=== PATIENT | female | born 1990 | race Caucasian/White ===

== ENCOUNTER 2020-09-02 10:29 | Emergency (ER) | payer SELFPAY ==
--- OUTSIDE RECORDS SUMMARY | 2020-09-02 10:32 | XMS REPORT | Continuity of Care Document ---
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 Health with with agoraphobi agoraphobi a a Severe Severe Disease Active [facility] episode of episode of 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, disorder, 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 Anxiety Anxiety Disease Active [facility] Allergies, Adverse Reactions, Alerts Allergy Allergy Status Severity Reaction(s) Onset Inactive Treating Comm ents Source Name Type Date Date Clinician Amoxicil Propensi Active Rash 2015-06 [facility] jeimy ty to 07-30 Health adverse 00:00: reaction 00 s to drug Social History Social Habit Start Date Stop Date Quantity Comments Source History of tobacco Cigarette Smoker [facility] use Sex Assigned At [facility] alth Cigarettes smoked 2016-05-29 2016-05-29 [facility] current (pack per 00:00:00 00:00:00 day) - Reported Alcohol intake 2016-05-29 2016-05-29 Current [facility] lt 00:00:00 00:00:00 non-drinker of alcohol (finding) Smoking Status Start Date Stop Date Source Current every day smoker 2016-05-29 00:00:00 [facility] Medications This patient has no known medications. Procedures This patient has no known procedures. Plan of Care Planned Activity Planned Date Details Comments Source Future Scheduled Test 2020-03-21 00:00:00 IMM Influenza [facility] Seasonal Mar to August (>/= 19 yrs) [code = IMM Influenza Seasonal Mar to August (>/= 19 yrs)] Future Scheduled Test 2011-12-18 00:00:00 Screening for [facility] malignant neoplasm of cervix (procedure) [code = 758146386] Results Test Description Test Time Test Comments Results Result Comments Source POC Glucose, Blood 2016-10-20 12:08:00 Test Item Value Reference Range Interpretation Comme nts POC Glucose (test code = POCGLUC) >600 mg/dL 70-115 HH Notify RN or HIV [id number] 14:54:00 Test Item Value Reference Range Interpretation Comments HIV 1/2 Antibody Non-Reactive Non-Reactive N HIV1/2 Anti body screen (test code = result indicate s the HIV1/2AB) absence of HIV1 and USX9sabnldyow.H owever, A Non-Reactive screen result does not rule out exposure orinfection. I f an acute infection is suspected, HIV RNA Quantitative is recommended. P24 Antigen (test Non-Reactive Non-Reactive N P24 Ag scr een result code = P24) indicates the a bsence of P24 antigen, which is anindicator of HIV-1 acute infection.Howev er, A Non-Reactive sc reen does not rule o ut exposure or infection.If ac jasiel HIV-1 is suspec edith, HIV RNA Quantit ative is recommended. RPR, [id number] 11:34:00 Test Item Value Reference Range Interpretation Comments RPR (test code = RPR) Non-Reactive Non-Reactive N Thyroid Stimulating Hormone (TSH)2016-10-16 08:47:00 Test Item Value Reference Range Interpretation Comments TSH (test code = TSH) 0.85 mIU/mL 0.270-4.200 N BHCG, Serum, [id number] 08:32:00 Test Item Value Reference Range Interpretation Comments Preg Qual [Se] (test code = BSHCG) Negative Negative N CBC with [id number] 08:18:00 Test Item Value Reference Range Interpretation Comments WBC (test code = WBC) 12.1 K/cumm 4.4-10.5 H RBC (test code = RBC) 5.27 M/cumm 3.75-5.20 H Hemoglobin (test code = HGB) 15.1 gm/dL 12.2-14.8 H Hematocrit (test code = HCT) 45.8 % 36.5-44.4 H MCV (test code = MCV) 86.9 fL 80-100 N MCH (test code = MCH) 28.6 pg 27.0-32.5 N MCHC (test code = MCHC) 32.9 g/dL 32.0-37.5 N RDW (test code = RDW) 14.5 % 11.5-14.5 N Platelet Count (test code = 275 K/cumm 140-440 N PLTCT) MPV (test code = MPV) 9.4 fL Diff Method (test code = DIFFM) Auto Neutrophil (test code = NEUT) 69.9 % 36-70 N Lymphocyte (test code = LYMPH) 24.7 % 12-44 N Monocyte (test code = MONO) 4.7 % 0-11 N Eosinophil (test code = EOS) 0.4 % 0-7 N Basophil (test code = BASO) 0.3 % 0-2 N Neutro Abs (test code = ANEUT) 8.5 K/cumm 1.6-7.4 H Lymph Abs (test code = ALYMPH) 3.0 K/cumm 0.5-4.6 N [place] Abs (test code = AMONO) 0.6 K/cumm 0.0-1.2 N Eos Abs (test code = AEOS) 0.04 K/cumm 0.00-0.74 N Baso Abs (test code = ABASO) 0.0 K/cumm 0.00-0.21 N
[2020-09-02 11:35] LABS: Absolute Lymphocytes (CBC) 3.2 K/uL (0.7-4.9); Basophils % 0.6 % (0-1.3); Hematocrit 40.6 % (36.0-45.0); Lymphocytes % 27.6 % (15.3-44.8); MPV 8.9 fL (7.6-11.3); RBC Red Blood Cell Count 5.02 M/uL (3.86-4.86)
[2020-09-02 11:47] LABS: Protime INR 1.07
[2020-09-02] MEDS ORDERED: LORazepam 2 MG/ML VIAL ONE ×3 (11:54→20:45)
[2020-09-02 12:06] LABS: ALT/SGPT 21 U/L (12-78); AST/SGOT 15 U/L (15-37); Albumin 3.9 g/dL (3.4-5.0); Alkaline Phosphatase 73 U/L (45-117); BUN Blood Urea Nitrogen 6 mg/dL (7-18); Bicarbonate 24 mmol/L (21-32); Bilirubin Direct 0.1 mg/dL (0-0.2); Bilirubin Total 0.4 mg/dL (0.2-1.0); Glucose Level 94 mg/dL (74-106); Potassium 3.8 mmol/L (3.5-5.1); Protein, Total 9.2 g/dL (6.4-8.2); Sodium Level 138 mmol/L (136-145)
[2020-09-02 12:20] LABS: Barbiturates NEGATIVE (NEGATIVE); Benzodiazepines NEGATIVE (NEGATIVE); Cocaine NEGATIVE (NEGATIVE); METHAMPHETAM POSITIVE (NEGATIVE); Methadone NEGATIVE (NEGATIVE); Opiates NEGATIVE (NEGATIVE); Phencyclidine NEGATIVE (NEGATIVE); THC Cannibis POSITIVE (NEGATIVE)
[2020-09-02 12:24] LABS: Urine Blood TRACE (NEG); Urine Glucose NEGATIVE (NEG); Urine Protein NEGATIVE (NEG); Urine Specific Gravity 1.015 (1.005-1.030)
--- NOTE | 2020-09-02 14:12 | ER ---
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 RN RN jd3 Hero Dugan RN RN rr5 Samantha Cintron RN RN ca1 Trim, Tyler tt3 Corrections: (The following items were deleted from the chart) 09/03 12:34 12:33 BP 122 / 81; Pulse 115bpm; Resp 17bpm; Spontaneous; Pulse Ox 100% RA; jd3 jd3 09/04 11:39 11:20 Reassessment: report given to [facility], pending transportation and paperwork tw2 process tw2
--- NOTE | 2020-09-02 14:12 | EDPHYS ---
Physician Documentation [facility] Name: Patrizia Young Age: 29 yrs Sex: Female : 1990 Arrival Date: 09/02/2020 Time: 10:31 Bed 20 Private MD: ROBERT Physician Rajendra Stack HPI: 09/02 11:27 This 29 yrs old Female presents to ER via Ambulatory with complaints of Psych jmm Problem, hallucination. 11:27 The patient presents to the emergency department with anxiety, psychosis, has jmm experienced auditory hallucinations, voices are telling patient to commit sucide, a history of substance abuse, Type: heroin. Onset: The symptoms/episode began/occurred today. Associated signs and symptoms: Pertinent positives; anxiety, hallucinations, substance abuse, suicide ideation. 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 - Social history:: Smoking status: Patient reports the use of cigarette tobacco products, smokes one-half pack cigarettes per day, Patient uses alcohol, street drugs, cocaine, marijuana, Methamphetamine (Meth). ROS: 11:27 Constitutional: Negative for fever, chills, and weight loss, Cardiovascular: Negative jmm for chest pain, palpitations, and edema, Respiratory: Negative for shortness of breath, cough, wheezing, and pleuritic chest pain. 11:27 Psych: Positive for suicidal ideation. 11:27 All other systems are negative. Exam: 11:27 Head/Face: atraumatic. Eyes: EOMI, no conjunctival erythema appreciated ENT: Moist jmm Mucus Membranes Neck: Trachea midline, Supple Chest/axilla: Normal chest wall appearance and motion. Cardiovascular: Regular rate and rhythm. No edema appreciated Respiratory: Normal respirations, no respiratory distress appreciated Abdomen/GI: Non distended, soft Back: Normal ROM Skin: General appearance color normal MS/ Extremity: Moves all extremities, no obvious deformities appreciated, no edema noted to the lower extremities Neuro: Awake and alert, normal gait 11:27 Constitutional: The patient appears alert, awake, anxious. 11:27 Psych: Behavior/mood is anxious, suicidal. Vital Signs: 10:46 BP 136 / 95; Pulse 122; Resp 18 S; Temp 99(TE); Pulse Ox 100% on R/A; Weight 68.04 kg ca1 (R); Height 5 ft. 4 in. (162.56 cm); Pain 0/10; 23:50 BP 116 / 76; Pulse 98; Resp 18; Temp 98.6; Pulse Ox 99% on R/A; em 09/03 12:00 BP 122 / 81; Pulse 115; Resp 17 S; Pulse Ox 100% on R/A; jd3 09/02 10:46 Body Mass Index 25.75 (68.04 kg, 162.56 cm) ca1 MDM: 09/02 10:57 Patient medically screened. alicia 14:10 Data reviewed: vital signs, nurses notes. Counseling: I had a detailed discussion with lazaro the patient and/or guardian regarding: the historical points, exam findings, and any diagnostic results supporting the discharge/admit diagnosis, lab results, the need to transfer to another facility. 20:37 ED course: I discussed the patient with Rajendra Padilla and [facility]. Recommend inpatient. lazaro . 20:40 Transition of care: After a detail discussion of the patient's case, care is [facility] transferred to Rajendra MARR. 09/03 17:31 ED course: The patient continues to rest comfortably in the ED. She had become agitated kdr but responded well to 1 mg Ativan PO. 19:33 Differential diagnosis: drug withdrawal. acute psychotic break, depression, psychosis alicia secondary to non-compliance. 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 Test interpretation: by ED physician or midlevel provider: ECG. 19:33 ED course: not suicidal., not homicidal, alert and oriented x4, wants to go home and alicia follow up as an out patient. 09/02 11:09 Order name: Acetaminophen [facility] 09/02 11:09 Order name: Basic Metabolic Panel [facility] 09/02 11:09 Order name: CBC with Diff [facility] 09/02 11:09 Order name: ETOH Level [facility] 09/02 11:09 Order name: Hepatic Function [facility] 09/02 11:09 Order name: PT-INR; Complete Time: 13:35 [facility] 09/02 11:09 Order name: Ptt, Activated; Complete Time: 13:35 [facility] 09/02 11:09 Order name: Salicylate; Complete Time: 19:27 [facility] 09/02 11:09 Order name: Urine Drug Screen; Complete Time: 13:35 [facility] 09/02 11:09 Order name: Basic Metabolic Panel; Complete Time: 13:35 [facility] 09/02 11:09 Order name: CBC with Automated Diff; Complete Time: 13:35 [facility] 09/02 11:09 Order name: Alcohol Serum/Plasma; Complete Time: 13:35 [facility] 09/02 11:10 Order name: Liver (Hepatic) Function; Complete Time: 13:35 [facility] 09/02 11:55 Order name: Acetaminophen Level; Complete Time: 14:49 [facility] 09/02 12:15 Order name: Urine Dipstick--Ancillary (enter results); Complete Time: 13:35 09/02 12:15 Order name: Urine --Ancillary (enter results); Complete Time: 13:35 09/02 13:18 Order name: COVID-19 : Document "Date of Symptom Onset" if Symptomatic. 09/02 18:13 Order name: SARS-COV-2 RT PCR; Complete Time: 18:37 [facility] 09/02 11:09 Order name: EKG; Complete Time: 11:10 [facility] 09/02 11:09 Order name: EKG - Nurse/Tech; Complete Time: 11:47 [facility] 09/02 11:09 Order name: IV Saline Lock; Complete Time: 11:47 [facility] 09/02 11:09 Order name: Labs collected and sent; Complete Time: 11:48 [facility] 09/02 11:09 Order name: Urine Dipstick-Ancillary (obtain specimen); Complete Time: 11:48 [facility] 09/02 19:22 Order name: Diet Finger Food; Complete Time: 19:22 jd3 09/03 07:18 Order name: Diet Finger Food; Complete Time: 07:19 09/03 17:43 Order name: Diet Finger Food; Complete Time: 17:43 jd3 Administered Medications: 09/02 11:47 Drug: Ativan 1 mg Route: IVP; Site: left antecubital; jd3 12:45 Follow up: Response: No adverse reaction jd3 14:36 Drug: Zofran (Ondansetron) 4 mg Route: IVP; Site: right antecubital; jd3 15:30 Follow up: Response: No adverse reaction jd3 18:45 Drug: Ativan 1 mg Route: IVP; Site: left antecubital; jd3 19:15 Follow up: Response: No adverse reaction; Marked relief of symptoms; Anxiety decreased em 20:31 Drug: Ativan 1 mg Route: IVP; Site: left antecubital; em 21:00 Follow up: Response: No adverse reaction; Marked relief of symptoms; Anxiety decreased em 03/16 02:12 Drug: Geodon 20 mg Route: IM; Site: right deltoid; em 02:30 Follow up: Response: No adverse reaction; Marked relief of symptoms em 16:30 Drug: Ativan 1 mg Route: PO; jd3 17:30 Follow up: Response: No adverse reaction jd3 20:00 Drug: RisperDAL 1 mg Route: PO; rr5 21:00 Follow up: Response: No adverse reaction rr5 20:00 Drug: Zoloft 50 mg Route: PO; rr5 21:00 Follow up: Response: No adverse reaction rr5 20:00 Drug: Ativan 1 mg Route: PO; rr5 21:00 Follow up: Response: No adverse reaction rr5 22:35 Drug: Geodon 20 mg Route: IM; Site: right deltoid; rr5 23:30 Follow up: Response: No adverse reaction rr5 22:37 Drug: Ativan 2 mg Route: IM; Site: left deltoid; rr5 23:35 Follow up: Response: No adverse reaction rr5 Disposition: 19:33 Co-signature as Attending Physician, Rajendra Stack MD I agree with the assessment and alicia plan of care. Disposition: 09/03/20 22:04 Transfer ordered to Psych Facility. Diagnosis are Bipolar disorder, Abuse of other non-psychoactive substances, Adverse effect of amphetamines. - Reason for transfer: Higher level of care. - Accepting physician is TO [facility]. - Condition is Stable. - Problem is new. - Symptoms have improved. Signatures: Dispatcher [employer] Rajendra Bautista MD MD cha Rittger, Kevin, MD MD kdr Mickail, Joel, PA PA jmm Kade Sierra, RN RN em Kelsey Tran RN RN tw2 Salvador Jim, RN RN jd3 Hero Dugan, RN RN rr5 Samantha Cintron RN RN ca1 Corrections: (The following items were deleted from the chart) 09/02 11:53 11:09 Acetaminophen Level ordered. [facility] 17:14 13:19 CORONAVIRUS ordered. [facility] 09/03 19:23 09/02 14:11 09/02/2020 14:11 Transfer ordered to Psych Facility. Diagnosis is alicia Hallucinations, unspecified; Suicidal ideations. Reason for transfer: Higher level of care. Accepting physician is Psychiatry. Condition is Stable. Problem is an acute exacerbation. Symptoms are unchanged. [facility] 09/03 22:02 19:28 09/03/2020 19:28 Discharged to Home. Impression: Bipolar disorder; Abuse of alicia non-psychoactive substances; Adverse effect of amphetamines. Condition is Stable. Forms are Medication Reconciliation Form, Thank You Letter, Antibiotic Education, Prescription Opioid Use. Follow up: Private Physician; When: 2 - 3 days; Reason: Recheck today's complaints, Continuance of care, Re-evaluation by your physician. Follow up: Dougie Wyatt; When: 2 - 3 days; Reason: Recheck today's complaints, Re-evaluation by your physician. Problem is new. Symptoms have improved. [facility] 09/04 14:36 09/03 22:04 09/03/2020 22:04 Transfer ordered to Psych Facility. Diagnosis is Bipolar tw2 disorder; Abuse of other non-psychoactive substances; Adverse effect of amphetamines. Reason for transfer: Higher level of care. Accepting physician is TO [facility]. Condition is Stable. Problem is new. Symptoms have improved. alicia
[2020-09-02] MEDS ORDERED: ONDANSETRON 4 MG/2 ML VIAL ONE (14:37)
[2020-09-03] MEDS ORDERED: WATER FOR INJ,STERILE 10 ML ONE ×2 (02:22→22:48)
[2020-09-03] MEDS ORDERED: ZIPRASIDONE MESYLA 20 MG/VIAL IM ONE ×2 (02:22→22:47)
[2020-09-03] MEDS ORDERED: LORAZEPAM 1 MG TABLET ONE ×2 (16:43→19:46)
[2020-09-03] MEDS ORDERED: SERTRALINE HCL 50 MG TAB ONE (20:06)
[2020-09-03] MEDS ORDERED: RISPERIDONE 1 MG TABLET ONE (20:06)
[2020-09-03] MEDS ORDERED: LORazepam 2 MG/ML VIAL ONE (22:47)
--- NOTE | 2020-09-04 04:38 | EKG ---
Test Date: 2020-09-02 Test Time: 10:42:36 Cardio Tech: LUISITO MEASUREMENT RESULTS: Intervals: Rate: 95 SC: 130 QRSD: 76 QT: 378 QTc: 475 Gibson: P: 22 SC: 130 QRS: 45 T: 36 INTERPRETIVE STATEMENTS: Normal sinus rhythm Nonspecific ST abnormality Abnormal ECG Compared to ECG 10/14/2016 16:24:32 ST (T wave) deviation now present Electronically Signed On 09-04-20 04:32:58 CDT by Teddy Huber
[2020-09-04 14:46] VITALS: TEMP 98.6
[2020-09-04 14:47] VITALS: BP 122/81; O2SAT 100
== END 2020-09-04 14:36 ==
LOC: ER 10:29
DX: F31.9 Bipolar disorder, unspecified (principal); F55.8 Abuse of other non-psychoactive substances; F15.90 Other stimulant use, unspecified, uncomplicated; F17.210 Nicotine dependence, cigarettes, uncomplicated; F40.01 Agoraphobia with panic disorder; R44.0 Auditory hallucinations; Z20.822 Contact with and (suspected) exposure to COVID-19; Z88.1 Allergy status to other antibiotic agents
CPT/HCPCS: 36415; 80048; 80076; 80307; 80320; 80329; 81003; 81025; 85025; 85610; 85730; 93005; 96372; 99285; J2405; U0003

== ENCOUNTER 2020-10-28 09:42 | Emergency (ER) | payer SELFPAY ==
--- OUTSIDE RECORDS SUMMARY | 2020-10-28 09:44 | XMS REPORT | Continuity of Care Document ---
:1990 Author Organization [facility] t Address [address] [place] [address] Care Team Providers Name Role Phone UNKNOWN Primary Care Physician Unavailable Susie DACOSTA Attending Clinician Unavailable Susie DACOSTA Admitting Clinician Unavailable Problems Condition Condition Condition Status Onset Resolution Last Treating Co mments Source Name Details Category Date Date Treatment Clinician Date Benzodiaze Benzodiaze Disease Active [facility] 02[facility]24 [facility] dependence dependence 00:00: st 00 Sedative, Sedative, Disease Active [facility] st[facility] hypnotic hypnotic 02-20 Method i or or 00:00: st 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 Suicidal Suicidal Disease Active [facility] s ideations ideations Heal Panic Panic Disease Active [facility] disorder disorder Health with with agoraphobi agoraphobi a a Severe Severe Disease Active [facility] episode of episode of 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, disorder, 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 Anxiety Anxiety Disease Active [facility] Allergies, Adverse Reactions, Alerts Allergy Allergy Status Severity Reaction(s) Onset Inactive Treating Comm ents Source Name Type Date Date Clinician Amoxicil Propensi Active Rash 2015-06 [facility] jeimy ty to 07-30 Health adverse 00:00: reaction 00 s to drug Amoxicil Propensi Active Rash [facility] jeimy-Pot ty to 02-20 [facility] Clavulan adverse 00:00: st ate reaction 00 s to drug Social History Social Habit Start Date Stop Date Quantity Comments Source History of tobacco Cigarette Smoker [facility] use Sex Assigned At [facility] He alth Cigarettes smoked 2016-05-29 2016-05-29 [facility] current (pack per 00:00:00 00:00:00 day) - Reported Alcohol intake 2016-05-29 2016-05-29 Current [facility] 00:00:00 00:00:00 non-drinker of alcohol (finding) Smoking Status Start Date Stop Date Source Current every day smoker 2016-05-29 00:00:00 [facility] Medications This patient has no known medications. Procedures This patient has no known procedures. Plan of Care Planned Activity Planned Date Details Comments Source Future Scheduled Test 2021-03-21 00:00:00 IMM Influenza [facility] Seasonal Mar to August (>/= 19 yrs) [code = IMM Influenza Seasonal Mar to August (>/= 19 yrs)] Future Scheduled Test 2020 00:00:00 Screening for [facility] malignant neoplasm of cervix (procedure) [code = 545922314] Future Scheduled Test 2011-12-18 00:00:00 Screening for [facility] malignant neoplasm of cervix (procedure) [code = 177367587] Future Scheduled Test 2006 00:00:00 COVID-19 Vaccine (1) [facility] [code = COVID-19 Vaccine (1)] Results Test Description Test Time Test Comments Results Result Comments Source POC Glucose, Blood 2016-10-20 12:08:00 Test Item Value Reference Range Interpretation Comme nts POC Glucose (test code = POCGLUC) >600 mg/dL 70-115 Notify RN or HIV [id number] 14:54:00 Test Item Value Reference Range Interpretation Comments HIV 1/2 Antibody Non-Reactive Non-Reactive N HIV1/2 Anti body screen (test code = result indicate s the HIV1/2AB) absence of HIV1 and VLQ5xixstmkjp.H owever, A Non-Reactive screen result does not [...] rule o ut exposure or infection.If ac minto HIV-1 is suspec edith, HIV RNA Quantit ative is recommended. RPR, [id number] 11:34:00 Test Item Value Reference Range Interpretation Comments RPR (test code = RPR) Non-Reactive Non-Reactive N Thyroid Stimulating Hormone (TSH)2016-10-16 08:47:00 Test Item Value Reference Range Interpretation Comments TSH (test code = TSH) 0.85 mIU/mL 0.270-4.200 N BHCG, Serum, [id number] 08:32:00 Test Item Value Reference Range Interpretation Comments Preg Qual [Se] (test code = BSHCG) Negative Negative N CBC with [id number] 08:18:00 Test Item Value Reference Range Interpretation [...] code = ALYMPH) 3.0 K/cumm 0.5-4.6 N [place] Abs (test code = AMONO) 0.6 K/cumm 0.0-1.2 N Eos Abs (test code = AEOS) 0.04 K/cumm 0.00-0.74 N Baso Abs (test code = ABASO) 0.0 K/cumm 0.00-0.21 N
[2020-10-28 10:26] LABS: Urine Blood Trace-intact (Negative); Urine Glucose Negative (Negative); Urine Protein 1+ (Negative); Urine Specific Gravity >=1.030 (1.005-1.030)
[2020-10-28 10:41] LABS: Absolute Lymphocytes (CBC) 2.5 K/uL (0.7-4.9); Basophils % 0.8 % (0-1.3); Hematocrit 38.7 % (36.0-45.0); Lymphocytes % 21.5 % (15.3-44.8); MPV 8.3 fL (7.6-11.3); RBC Red Blood Cell Count 4.83 M/uL (3.86-4.86)
[2020-10-28] MEDS ORDERED: PROMETHAZINE INJ 25 MG/ML AMP ONE (10:54)
[2020-10-28] MEDS ORDERED: NA CHLORIDE 0.9% 1,000 ML ONE (10:54)
[2020-10-28 10:59] LABS: ALT/SGPT 18 U/L (12-78); AST/SGOT 15 U/L (15-37); Albumin 3.8 g/dL (3.4-5.0); Alkaline Phosphatase 58 U/L (45-117); BUN Blood Urea Nitrogen 14 mg/dL (7-18); Bicarbonate 25 mmol/L (21-32); Bilirubin Direct < 0.1 mg/dL (0-0.2); Bilirubin Total 0.5 mg/dL (0.2-1.0); Glucose Level 87 mg/dL (74-106); Lipase 71 U/L (73-393); Potassium 3.6 mmol/L (3.5-5.1); Protein, Total 8.4 g/dL (6.4-8.2); Sodium Level 139 mmol/L (136-145); Urine Bacteria >50 /HPF (<20); Urine RBC <5 /HPF (NONE SEEN)
--- NOTE | 2020-10-28 11:33 | RAD REPORT ---
EXAM DESCRIPTION: CT - Abdomen Pelvis W Contrast - 10/28/2020 11:21 am CLINICAL HISTORY: NAUSEA / VOMITING COMPARISON: Abdomen Pelvis W Contrast dated 02/04/2016 TECHNIQUE: Biphasic, helical CT imaging of the abdomen and pelvis was performed following 100 ml non -ionic IV contrast. No oral contrast was given. All CT scans are performed using dose optimization technique as appropriate and may include automated exposure control or mA/KV adjustment according to patient size. FINDINGS: No suspicious findings in the lung bases. The liver, spleen, and pancreas show no suspicious findings. Gallbladder and biliary tree are also wi thout suspicious finding. Symmetric renal function is seen with no hydronephrosis or suspicious renal mass. No pyelonephritis o r acute parenchymal process. No bladder abnormalities. No adrenal abnormalities. No dilated bowel loops or bowel wall thickening. Appendix is normal. No free air, free fluid or infla mmatory stranding. No hernia, mass or bulky lymphadenopathy. No suspicious bony findings. IMPRESSION: Contrast enhanced CT abdomen and pelvis showing no significant or suspicious finding.
[2020-10-28] MEDS ORDERED: ONDANSETRON 4 MG/2 ML VIAL ONE (12:05)
--- NOTE | 2020-10-28 12:40 | ER ---
Nurse's Notes [facility] Name: Patrizia Young Age: 29 yrs Sex: Female : 1990 Arrival Date: 10/28/2020 Time: 09:48 Bed 18 Private MD: Diagnosis: Vomiting, unspecified;Diarrhea, unspecified Presentation: 10/28 09:49 Chief complaint: Patient states: "I have been having nausea, vomiting and diarrhea. jd3 been going on for a couple of days now.". Coronavirus screen: At this time, the client does not indicate any symptoms associated with coronavirus-19. Ebola Screen: Patient negative for fever greater than or equal to 101.5 degrees Fahrenheit, and additional compatible Ebola Virus Disease symptoms. Initial Sepsis Screen: Does the patient meet any 2 criteria? No. Patient's initial sepsis screen is negative. Does the patient have a suspected source of infection? No. Patient's initial sepsis screen is negative. Risk Assessment: Do you want to hurt yourself or someone else? Patient reports no desire to harm self or others. Onset of symptoms was October 26, 2020. 09:49 Method Of Arrival: Ambulatory jd3 09:49 Acuity: GLADYS 3 jd3 Triage Assessment: 10:07 General: Appears distressed, uncomfortable, Behavior is cooperative, appropriate for tr6 age. Pain: Denies pain. GI: Reports diarrhea, nausea, vomiting. RN PEDIATRIC ICU: 09:51 LMP 10/25/2020 jd3 Historical: - Allergies: 09:51 Amoxicillin; jd3 - Home Meds: 09:51 Alprazolam Oral for Anxiety [Active]; Wellbutrin Oral [Active]; jd3 - PMHx: 09:51 Anxiety; AGORAPHOBIA; Bipolar disorder; Depression; Panic Attacks; jd3 - PSHx: 09:51 None; jd3 - Immunization history:: Adult Immunizations unknown. - Social history:: Smoking status: Patient reports the use of cigarette tobacco products, smokes one-half pack cigarettes per day. - Family history:: not pertinent. - Hospitalizations: : No recent hospitalization is reported. Screenin:07 Abuse screen: Denies threats or abuse. Denies injuries from another. Nutritional tr6 screening: No deficits noted. Tuberculosis screening: No symptoms or risk factors identified. Fall Risk None identified. Assessment: 10:08 GI: Abdomen is flat. tr6 10:08 General: Appears uncomfortable, Behavior is cooperative, anxious. Pain: Denies pain. tr6 Neuro: No deficits noted. Cardiovascular: No deficits noted. Respiratory: No deficits noted. GI: Reports diarrhea, nausea, vomiting, x3 days. pt reports that she does meth and cocaine. last used yesterday. : No deficits noted. EENT: No deficits noted. Derm: No deficits noted. Musculoskeletal: No deficits noted. 11:15 Reassessment: pt transported to CT via stretcher. tr6 11:43 Reassessment: Patient and/or family updated on plan of care and expected duration. Pain tr6 level reassessed. pt returned from CT. heard vomiting in room. 12:37 Reassessment: pt sleeping. tr6 13:33 Reassessment: pt reports that she is feeling much better. tr6 Vital Signs: 09:51 BP 131 / 72; Pulse 91; Resp 17 S; Temp 97.7(TE); Pulse Ox 100% on R/A; Weight 72.12 kg jd3 (R); Height 5 ft. 4 in. (162.56 cm) (R); Pain 9/10; 09:51 Body Mass Index 27.29 (72.12 kg, 162.56 cm) jd3 ED Course: 09:48 Patient arrived in ED. am2 09:50 Triage completed. jd3 09:52 Arm band placed on. jd3 10:06 Manohar Fragoso MD is Attending Physician. rn 10:08 Patient has correct armband on for positive identification. Bed in low position. Call tr6 light in reach. Side rails up X 1. 10:08 No provider procedures requiring assistance completed. tr6 10:25 Urine Dipstick-Ancillary Sent. tr6 10:35 Urine Microscopic Only Sent. tr6 11:21 CT Abd/Pelvis - IV Contrast Only In Process Unspecified. EDMS 13:33 IV discontinued, intact, bleeding controlled, No redness/swelling at site. Pressure tr6 dressing applied. Administered Medications: 10:36 Drug: NS 0.9% 1000 ml Route: IV; Rate: 1000 ml; Site: right antecubital; tr6 11:48 Follow up: Response: No adverse reaction; IV Status: Completed infusion; IV Intake: tr6 1000ml 10:36 Drug: Phenergan (promethazine) 12.5 mg Route: IVP; Site: right antecubital; tr6 11:48 Follow up: Response: Nausea unchanged tr6 11:47 Drug: Zofran (Ondansetron) 4 mg Route: IVP; Site: right wrist; tr6 13:34 Follow up: Response: No adverse reaction; Pain is decreased; Anxiety decreased; Nausea tr6 is decreased; Vomiting decreased Intake: 11:48 IV: 1000ml; Total: 1000ml. tr6 Outcome: 12:39 Discharge ordered by . rn 13:33 Discharged to home ambulatory. tr6 13:33 Condition: improved 13:33 Discharge instructions given to patient. 13:34 Patient left the ED. tr6 Signatures: Dispatcher [employer] EDMS Manohar Fragoso MD MD rn Moreno, Amanda am2 Davies, Jonathon, RN RN jNathalie Wise RN RN tr6
--- NOTE | 2020-10-28 12:40 | EDPHYS ---
Physician Documentation [facility] Name: Patrizia Young Age: 29 yrs Sex: Female : 1990 Arrival Date: 10/28/2020 Time: 09:48 Bed 18 Private MD: ED Physician Manohar Fragoso HPI: 10/28 12:03 This 29 yrs old Female presents to ER via Ambulatory with complaints of rn Nausea/Vomiting/Diarrhea. 12:03 The patient presents to the emergency department with nausea, vomiting, diarrhea. rn 12:03 Onset: The symptoms/episode began/occurred 2 day(s) ago. Possible causes: unknown. The rn symptoms are aggravated by nothing. The symptoms are alleviated by nothing. Associated signs and symptoms: Pertinent positives: diarrhea, nausea, vomiting, Pertinent negatives: fever, GI bleeding. Severity of symptoms: At their worst the symptoms were moderate in the emergency department the symptoms have improved. The patient has not experienced similar symptoms in the past. The patient has not recently seen a physician. Reports nausea/vomiting/diarrhea for 2 days, reports no improvement with drug use. No fever. No trauma. No blood in emesis or stool. No focal abd pain, but reports cramping. Denies . . 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 - Social history:: Smoking status: Patient reports the use of cigarette tobacco products, smokes one-half pack cigarettes per day. - Family history:: not pertinent. - Hospitalizations: : No recent hospitalization is reported. ROS: 12:03 Constitutional: Negative for fever, chills, and weight loss, Eyes: Negative for injury, rn pain, redness, and discharge, Neck: Negative for injury, pain, and swelling, Cardiovascular: Negative for chest pain, palpitations, and edema, Respiratory: Negative for shortness of breath, cough, wheezing, and pleuritic chest pain, Abdomen/GI: Negative for abdominal pain, and constipation, Back: Negative for injury and pain, : Negative for injury, bleeding, discharge, and swelling, MS/Extremity: Negative for injury and deformity, Skin: Negative for injury, rash, and discoloration, Neuro: Negative for headache, weakness, numbness, tingling, and seizure. Exam: 12:03 Constitutional: This is a well developed, well nourished patient who is awake, alert rn Head/Face: Normocephalic, atraumatic. Eyes: Periorbital areas with no swelling, redness, or edema. ENT: MMM Cardiovascular: Regular rate and rhythm. No pulse deficits. Respiratory: No increased work of breathing, no retractions or nasal flaring. Abdomen/GI: soft, non-tender, no masses Skin: Warm, dry MS/ Extremity: Pulses equal, no cyanosis. Neuro: Awake and alert, GCS 15 Vital Signs: 09:51 BP 131 / 72; Pulse 91; Resp 17 S; Temp 97.7(TE); Pulse Ox 100% on R/A; Weight 72.12 kg jd3 (R); Height 5 ft. 4 in. (162.56 cm) (R); Pain 9/10; 09:51 Body Mass Index 27.29 (72.12 kg, 162.56 cm) jd3 MDM: 10:06 Patient medically screened. rn 12:38 Differential diagnosis: viral gastroenteritis, gastroenteritis. Data reviewed: vital rn signs, nurses notes, lab test result(s), radiologic studies, CT scan, and as a result, I will discharge patient. Counseling: I had a detailed discussion with the patient and/or guardian regarding: the historical points, exam findings, and any diagnostic results supporting the discharge/admit diagnosis, lab results, radiology results, the need for outpatient follow up, to return to the emergency department if symptoms worsen or persist or if there are any questions or concerns that arise at home. Response to treatment: the patient's symptoms have markedly improved after treatment, and as a result, I will discharge patient. Special discussion: I discussed with the patient/guardian in detail that at this point there is no indication for admission to the hospital. It is understood, however, that if the symptoms persist or worsen the patient needs to return immediately for re-evaluation. ED course: Improved symptoms, stable vitals, no acute findings in ct abdomen, recommend cessation of drug use and prn zofran.. 10/28 10:15 Order name: Basic Metabolic Panel; Complete Time: 11:11 rn 10/28 10:15 Order name: CBC with Diff; Complete Time: 11: rn 10/28 10:15 Order name: Hepatic Function; Complete Time: 11:11 rn 10/28 10:15 Order name: Lipase; Complete Time: 11: rn 10/28 10:15 Order name: Urine Microscopic Only; Complete Time: 11: rn 10/28 10:25 Order name: Urine Dipstick-Ancillary; Complete Time: 11:11 EDMS 10/28 10:15 Order name: IV Saline Lock; Complete Time: 10:35 rn 10/28 10:15 Order name: Labs collected and sent; Complete Time: 10:36 rn 10/28 10:15 Order name: CT Abd/Pelvis - IV Contrast Only; Complete Time: 11:51 rn 10/28 10:15 Order name: Urine Test (obtain specimen); Complete Time: 10:25 rn 10/28 10:36 Order name: Urine --Ancillary (enter results); Complete Time: 11: bd 10/28 10:15 Order name: Urine Dipstick-Ancillary (obtain specimen); Complete Time: 10:25 rn Administered Medications: 10:36 Drug: NS 0.9% 1000 ml Route: IV; Rate: 1000 ml; Site: right antecubital; tr6 11:48 Follow up: Response: No adverse reaction; IV Status: Completed infusion; IV Intake: tr6 1000ml 10:36 Drug: Phenergan (promethazine) 12.5 mg Route: IVP; Site: right antecubital; tr6 11:48 Follow up: Response: Nausea unchanged tr6 11:47 Drug: Zofran (Ondansetron) 4 mg Route: IVP; Site: right wrist; tr6 13:34 Follow up: Response: No adverse reaction; Pain is decreased; Anxiety decreased; Nausea tr6 is decreased; Vomiting decreased Disposition: 10/28/20 12:39 Discharged to Home. Impression: Vomiting, unspecified, Diarrhea, unspecified. - Condition is Stable. - Discharge Instructions: Diarrhea, Adult, Nausea and Vomiting, Adult. - Prescriptions for Zofran ODT 4 mg Oral tablet,disintegrating - place 1 tablet by TRANSLINGUAL route every 8 hours As needed; 20 tablet. - Medication Reconciliation Form, Thank You Letter, Antibiotic Education, Prescription Opioid Use form. - Follow up: Private Physician; When: As needed; Reason: Recheck today's complaints, Re-evaluation by your physician. - Problem is new. - Symptoms have improved. Signatures: Dispatcher [employer] EDManohar Yousif MD MD rn Davies, Jonathon, RN RN jNathalie Wise RN RN tr6 Corrections: (The following items were deleted from the chart) 13:34 12:39 10/28/2020 12:39 Discharged to Home. Impression: Vomiting, unspecified; Diarrhea, tr6 unspecified. Condition is Stable. Forms are Medication Reconciliation Form, Thank You Letter, Antibiotic Education, Prescription Opioid Use. Follow up: Private Physician; When: As needed; Reason: Recheck today's complaints, Re-evaluation by your physician. Problem is new. Symptoms have improved. rn
[2020-10-28 13:41] VITALS: BP 131/72; TEMP 97.7; O2SAT 100
== END 2020-10-28 13:34 | disposition home or self-care (01) ==
LOC: ER 09:42
DX: R19.7 Diarrhea, unspecified (principal); F31.9 Bipolar disorder, unspecified; F17.210 Nicotine dependence, cigarettes, uncomplicated; Z88.1 Allergy status to other antibiotic agents
CPT/HCPCS: 36415; 74177; 80048; 80076; 81003; 81015; 81025; 83690; 85025; 99283; J2405; J2550; J7030; Q9967

== ENCOUNTER 2020-11-07 04:14 | Emergency (ER) | payer SELFPAY ==
--- OUTSIDE RECORDS SUMMARY | 2020-11-07 04:17 | XMS REPORT | Continuity of Care Document ---
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 Allergies, Adverse Reactions, Alerts Allergy Allergy Status Severity Reaction(s) Onset Inactive Treating Comm ents Source Name Type Date Date Clinician Amoxicil Propensi Active Rash 2015-06 [place] jeimy ty to 07-30 Health adverse 00:00: reaction 00 s to drug Amoxicil Propensi Active Rash [place] [facility] jeimy-Pot ty to 02-20 Methodi Clavulan adverse 00:00: st ate reaction 00 s to drug Social History Social Habit Start Date Stop Date Quantity Comments Source History of tobacco Cigarette Smoker [facility] use Sex Assigned At [place] He alth Cigarettes smoked 2016-05-29 2016-05-29 [facility] current (pack per 00:00:00 00:00:00 day) - Reported Alcohol intake 2016-05-29 2016-05-29 Current [facility] 00:00:00 00:00:00 non-drinker of alcohol (finding) Smoking Status Start Date Stop Date Source Current every day smoker 2016-05-29 00:00:00 [facility] Medications This patient has no known medications. Procedures This patient has no known procedures. Plan of Care Planned Activity Planned Date Details Comments Source Future Scheduled Test 2021-03-21 00:00:[address] [facility] Seasonal Mar to August (>/= 19 yrs) [code = IMM Influenza Seasonal Mar to August (>/= 19 yrs)] Future Scheduled Test 2020 00:00:[address] [facility] malignant neoplasm of cervix (procedure) [code = 042761809] Future Scheduled Test 2011-12-18 00:00:[address] [facility] malignant neoplasm of cervix (procedure) [code = 164696998] Future Scheduled Test 2006 00:00:00 COVID-19 Vaccine (1) [facility] [code = COVID-19 Vaccine (1)] Results Test Description Test Time Test Comments Results Result Comments Source POC Glucose, Blood 2016-10-20 12:08:00 Test Item Value Reference Range Interpretation Comme nts POC Glucose (test code = POCGLUC) >600 mg/dL 70-115 Notify RN or HIV [id number] 14:54:00 Test Item Value Reference Range Interpretation Comments HIV 1/2 Antibody Non-Reactive Non-Reactive N HIV1/2 Anti body screen (test code = result indicate s the HIV1/2AB) absence of HIV1 and YZE4zhdhhhomk.H owever, A Non-Reactive screen result does not [...] rule o ut exposure or infection.If ac togiak HIV-1 is suspec edith, HIV RNA Quantit ative is recommended. RPR, [id number] 11:34:00 Test Item Value Reference Range Interpretation Comments RPR (test code = RPR) Non-Reactive Non-Reactive N Thyroid Stimulating Hormone (TSH)2016-10-16 08:47:00 Test Item Value Reference Range Interpretation Comments TSH (test code = TSH) 0.85 mIU/mL 0.270-4.200 N BHCG, Serum, [id number] 08:32:00 Test Item Value Reference Range Interpretation Comments Preg Qual [Se] (test code = BSHCG) Negative Negative N CBC with [id number] 08:18:00 Test Item Value Reference Range Interpretation [...] code = ALYMPH) 3.0 K/cumm 0.5-4.6 N Yancey Abs (test code = AMONO) 0.6 K/cumm 0.0-1.2 N Eos Abs (test code = AEOS) 0.04 K/cumm 0.00-0.74 N Baso Abs (test code = ABASO) 0.0 K/cumm 0.00-0.21 N
[2020-11-07] MEDS ORDERED: LORazepam 2 MG/ML VIAL ONE (05:13)
--- NOTE | 2020-11-07 05:25 | EDPHYS ---
Physician Documentation [facility] Name: Patrizia Young Age: 29 yrs Sex: Female : 1990 Arrival Date: 11/07/2020 Time: 04:15 Bed 13 Private MD: ROBERT Physician Rajendra Stack HPI: 11/07 05:09 This 29 yrs old Female presents to ER via Unassigned with complaints of alicia Anxiety. 05:09 The patient presents to the emergency department with anxiety, depression, DRUG USE AND alicia ANXIETY. Onset: The symptoms/episode began/occurred yesterday. Past psychiatric history: Prior diagnosis: depression. Associated signs and symptoms: The patient has no apparent associated signs or symptoms. Severity of symptoms: At their worst the symptoms were moderate in the emergency department the symptoms have improved. The patient has experienced similar episodes in the past. 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 - Family history:: not pertinent. - Social history:: Smoking status: unknown. ROS: 05:16 Constitutional: Negative for fever, chills, and weight loss, Eyes: Negative for injury, alicia pain, redness, and discharge, ENT: Negative for injury, pain, and discharge, Neck: Negative for injury, pain, and swelling, Cardiovascular: Negative for chest pain, palpitations, and edema, Respiratory: Negative for shortness of breath, cough, wheezing, and pleuritic chest pain, Abdomen/GI: Negative for abdominal pain, nausea, vomiting, diarrhea, and constipation, Back: Negative for injury and pain, : Negative for injury, bleeding, discharge, and swelling, MS/Extremity: Negative for injury and deformity, Skin: Negative for injury, rash, and discoloration, Neuro: Negative for headache, weakness, numbness, tingling, and seizure, Allergy/Immunology: Negative for hives, rash, and allergies, Endocrine: Negative for neck swelling, polydipsia, polyuria, polyphagia, and marked weight changes, Hematologic/Lymphatic: Negative for swollen nodes, abnormal bleeding, and unusual bruising. 05:16 Psych: Positive for anxiety, drug dependence. Exam: 05:16 Constitutional: This is a well developed, well nourished patient who is awake, alert, alicia and in no acute distress. Head/Face: Normocephalic, atraumatic. Eyes: Pupils equal round and reactive to light, extra-ocular motions intact. Lids and lashes normal. Conjunctiva and sclera are non-icteric and not injected. Cornea within normal limits. Periorbital areas with no swelling, redness, or edema. ENT: Nares patent. No nasal discharge, no septal abnormalities noted. Tympanic membranes are normal and external auditory canals are clear. Oropharynx with no redness, swelling, or masses, exudates, or evidence of obstruction, uvula midline. Mucous membranes moist. Neck: Trachea midline, no thyromegaly or masses palpated, and no cervical lymphadenopathy. Supple, full range of motion without nuchal rigidity, or vertebral point tenderness. No Meningismus. Chest/axilla: Normal chest wall appearance and motion. Nontender with no deformity. No lesions are appreciated. Cardiovascular: Regular rate and rhythm with a normal S1 and S2. No gallops, murmurs, or rubs. Normal PMI, no JVD. No pulse deficits. Respiratory: Lungs have equal breath sounds bilaterally, clear to auscultation and percussion. No rales, rhonchi or wheezes noted. No increased work of breathing, no retractions or nasal flaring. Abdomen/GI: Soft, non-tender, with normal bowel sounds. No distension or tympany. No guarding or rebound. No evidence of tenderness throughout. Back: No spinal tenderness. No costovertebral tenderness. Full range of motion. Skin: Warm, dry with normal turgor. Normal color with no rashes, no lesions, and no evidence of cellulitis. MS/ Extremity: Pulses equal, no cyanosis. Neurovascular intact. Full, normal range of motion. Neuro: Awake and alert, GCS 15, oriented to person, place, time, and situation. Cranial nerves II-XII grossly intact. Motor strength 5/5 in all extremities. Sensory grossly intact. Cerebellar exam normal. Normal gait. 05:16 Psych: Behavior/mood is anxious, Affect is animated, Oriented to person, Patient has no thoughts/intents to harm self or others. Judgement / Insight is normal. Memory is normal. Delusions/hallucinations are not present. Vital Signs: 06:09 BP 114 / 67; Pulse 74; Resp 16; Pulse Ox 100% on R/A; ak2 MDM: 05:08 Patient medically screened. [facility] 05:19 Differential diagnosis: drug withdrawal. acute psychotic break, depression, psychosis alicia secondary to non-compliance. Data reviewed: vital signs, nurses notes. 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 Counseling: I had a detailed discussion with the patient and/or guardian regarding: the historical points, exam findings, and any diagnostic results supporting the discharge/admit diagnosis, lab results, radiology results, the need for outpatient follow up, for definitive care, a family practitioner, a psychiatrist. Administered Medications: 05:00 Drug: Ativan (LORazepam) 2 mg Route: IM; Site: left deltoid; iw 05:28 Drug: KLONopin (clonazePAM) 2 mg Route: PO; ak2 Disposition: 11/07/20 05:24 Discharged to Home. 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 - Condition is Stable. - Discharge Instructions: Panic Attacks, Substance Use Disorder, Panic Attacks, [id number]. - Prescriptions for Hydroxyzine HCl 25 mg Oral Tablet - take 1 tablet by ORAL route every 6 hours As needed; 30 tablet. Klonopin 1 mg Oral Tablet - take 1 tablet by ORAL route every 12 hours As needed; 10 tablet. - Medication Reconciliation Form, Thank You Letter, Antibiotic Education, Prescription Opioid Use form. - Follow up: Private Physician; When: 2 - 3 days; Reason: Recheck today's complaints, Continuance of care, Re-evaluation by your physician. Follow up: Dougie Wyatt; When: 2 - 3 days; Reason: Recheck today's complaints, Continuance of care, Re-evaluation by your physician. - Problem is new. - Symptoms have improved. Signatures: Rajendra Stack MD MD cha Williams, Irene, RN RN iw Shun Little2 Corrections: (The following items were deleted from the chart) 06:43 05:24 11/07/2020 05:24 Discharged to Home. 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 Condition is Stable. Discharge Instructions: Panic Attacks, Substance Use Disorder, Panic Attacks, [id number]. Prescriptions for Hydroxyzine HCl 25 mg Oral Tablet - take 1 tablet by ORAL route every 6 hours As needed; 30 tablet, Klonopin 1 mg Oral Tablet - take 1 tablet by ORAL route every 12 hours As needed; 10 tablet. and Forms are Medication Reconciliation Form, Thank You Letter, Antibiotic Education, Prescription Opioid Use. Follow up: Private Physician; When: 2 - 3 days; Reason: Recheck today's complaints, Continuance of care, Re-evaluation by your physician. Follow up: Dougie Wyatt; When: 2 - 3 days; Reason: Recheck today's complaints, Continuance of care, Re-evaluation by your physician. Problem is new. Symptoms have improved. alicia
--- NOTE | 2020-11-07 05:25 | ER ---
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 Coronavirus screen: At this time, the client does not indicate any symptoms associated with coronavirus-19. Ebola Screen: Patient negative for fever greater than or equal to 101.5 degrees Fahrenheit, and additional compatible Ebola Virus Disease symptoms Patient denies exposure to infectious person. Patient denies travel to an Ebola-affected area in the 21 days before illness onset. No symptoms or risks identified at this time. Initial Sepsis Screen: Does the patient meet any 2 criteria? No. Patient's initial sepsis screen is negative. Does the patient have a suspected source of infection? No. Patient's initial sepsis screen is negative. Risk Assessment:. Risk Assessment: Do you want to hurt yourself or someone else? Patient reports no desire to harm self or others. Onset of symptoms was November 07, 2020. 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 - Family history:: not pertinent. - Social history:: Smoking status: unknown. Screenin:10 Abuse screen: Denies threats or abuse. Denies injuries from another. Nutritional ak2 screening: No deficits noted. Tuberculosis screening: No symptoms or risk factors identified. Fall Risk None identified. Assessment: 05:22 General: Appears Behavior is agitated, anxious. Pain: Denies pain. Neuro: Level of iw Consciousness is awake, alert, obeys commands, Oriented to person, place, time, situation, Moves all extremities. Full function. Respiratory: Respiratory effort is even, unlabored, Respiratory pattern is regular, symmetrical. Musculoskeletal: Range of motion: intact in all extremities. Vital Signs: 06:09 BP 114 / 67; Pulse 74; Resp 16; Pulse Ox 100% on R/A; ak2 ED Course: 04:15 Patient arrived in ED. bp1 04:31 Rajendra Stack MD is Attending Physician. alicia 05:11 Britni Goldman, RN is Primary Nurse. iw 05:13 Triage completed. iw 05:24 Dougie Wyatt MD is Referral Physician. alicia 06:10 Arm band placed on right wrist. ak2 06:10 No provider procedures requiring assistance completed. Patient did not have IV access ak2 during this emergency room visit. 06:11 Patient has correct armband on for positive identification. ak2 Administered Medications: 05:00 Drug: Ativan (LORazepam) 2 mg Route: IM; Site: left deltoid; iw 05:28 Drug: KLONopin (clonazePAM) 2 mg Route: PO; ak2 Outcome: 05:24 Discharge ordered by . alicia 06:42 Discharged to home ambulatory. iw 06:42 Condition: good 06:42 Discharge instructions given to patient, Instructed on discharge instructions, follow up and referral plans. Demonstrated understanding of instructions, follow-up care, medications, Prescriptions given X 1. 06:43 Patient left the ED. ak2 Signatures: Rajendra Stack MD MD cha Williams, Irene, RN RN iw Laura Gloria Anthony ak2 Corrections: (The following items were deleted from the chart) 07:29 06:42 Discharge instructions given to patient, Instructed on discharge instructions, iw follow up and referral plans. iw
[2020-11-07] MEDS ORDERED: clonazePAM 1 MG TAB ONE (05:44)
[2020-11-07 06:59] VITALS: TEMP 98.6
[2020-11-07 07:00] VITALS: BP 126/74; O2SAT 98
== END 2020-11-07 06:43 | disposition home or self-care (01) ==
LOC: ER 04:14
DX: F55.8 Abuse of other non-psychoactive substances (principal); F12.10 Cannabis abuse, uncomplicated; Z88.1 Allergy status to other antibiotic agents
CPT/HCPCS: 96372; 99283

== ENCOUNTER 2020-11-24 07:46 | Emergency (ER) | payer SELFPAY ==
--- OUTSIDE RECORDS SUMMARY | 2020-11-24 07:49 | XMS REPORT | Continuity of Care Document ---
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 00:00: st 00 Sedative, Sedative, Disease Active Kerline ston hypnotic hypnotic 02-20 Method i or or 00:00: st 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 Suicidal [facility]ations [facility] Heal 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 Health with with agoraphobi agoraphobi a a Severe Severe Disease Active [place] episode of episode of 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, disorder, 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 Anxiety Anxiety Disease Active [facility] Allergies, Adverse Reactions, Alerts Allergy Allergy Status Severity Reaction(s) Onset Inactive Treating Comm ents Source Name Type Date Date Clinician Amoxicil Propensi Active Rash 2015-06 Romero jeimy ty to 07-30 Health adverse 00:00: reaction 00 s to drug Amoxicil Propensi Active Rash [place] n jeimy-Pot ty to 02-20 Methodi Clavulan adverse 00:00: st ate reaction 00 s to drug Social History Social Habit Start Date Stop Date Quantity Comments Source History of tobacco Cigarette Smoker [facility] use Sex Assigned [facility] alth Cigarettes smoked 2016-05-29 2016-05-29 [facility] current (pack per 00:00:00 00:00:00 day) - Reported Alcohol intake 2016-05-29 2016-05-[address] [facility] lt 00:00:00 00:00:00 non-drinker of alcohol (finding) Smoking Status Start Date Stop Date Source Current every day smoker 2016-05-29 00:00:00 [facility] Medications This patient has no known medications. Procedures This patient has no known procedures. Plan of Care Planned Activity Planned Date Details Comments Source Future Scheduled Test 2021-03-21 00:00:00 IMM Influenza [facility] Seasonal Mar to August (>/= 19 yrs) [code = IMM Influenza Seasonal Mar to August (>/= 19 yrs)] Future Scheduled Test 2020 00:00:00 Screening for [facility] malignant neoplasm of cervix (procedure) [code = 877788388] Future Scheduled Test 2011-12-18 00:00:00 Screening for [facility] malignant neoplasm of cervix (procedure) [code = 277485550] Future Scheduled Test 2006 00:00:00 COVID-19 Vaccine (1) [facility] [code = COVID-19 Vaccine (1)] Encounters Start End Encounter Admission Attending Care Care Encounter Source Date/Time Date/Time Type Type Clinicians Facility Department ID 2020-11-17 2020-11-17 Emergency [facility] [id number] 03:29:00 06:24:00 Olimpia Chisholm [id number] [place] [id number] [place] [id number] Results Test Description Test Time Test Comments Results Result Comments Source POC Glucose, Blood 2016-10-20 12:08:00 Test Item Value Reference Range Interpretation Comme nts POC Glucose (test code = POCGLUC) >600 mg/dL 70-115 Notify RN or HIV [id number] 14:54:00 Test Item Value Reference Range Interpretation Comments HIV 1/2 Antibody Non-Reactive Non-Reactive N HIV1/2 Anti body screen (test code = result indicate s the HIV1/2AB) absence of HIV1 and WVD0dcpmqsaur.H owever, A Non-Reactive screen result does not [...] rule o ut exposure or infection.If ac new [place] HIV-1 is suspec edith, HIV RNA Quantit ative is recommended. RPR, [id number] 11:34:00 Test Item Value Reference Range Interpretation Comments RPR (test code = RPR) Non-Reactive Non-Reactive N Thyroid Stimulating Hormone (TSH)2016-10-16 08:47:00 Test Item Value Reference Range Interpretation Comments TSH (test code = TSH) 0.85 mIU/mL 0.270-4.200 N BHCG, Serum, [id number] 08:32:00 Test Item Value Reference Range Interpretation Comments Preg Qual [Se] (test code = BSHCG) Negative Negative N CBC with [id number] 08:18:00 Test Item Value Reference Range Interpretation [...] code = ALYMPH) 3.0 K/cumm 0.5-4.6 N [place] Abs (test code = AMONO) 0.6 K/cumm 0.0-1.2 N Eos Abs (test code = AEOS) 0.04 K/cumm 0.00-0.74 N Baso Abs (test code = ABASO) 0.0 K/cumm 0.00-0.21 N
[2020-11-24 08:24] LABS: Absolute Lymphocytes (CBC) 3.8 K/uL (0.7-4.9); Basophils % 0.6 % (0-1.3); Hematocrit 40.3 % (36.0-45.0); Lymphocytes % 26.1 % (15.3-44.8); MPV 8.8 fL (7.6-11.3); RBC Red Blood Cell Count 4.97 M/uL (3.86-4.86)
[2020-11-24 08:32] LABS: Albumin 3.7 g/dL (3.4-5.0); Bilirubin Direct 0.1 mg/dL (0-0.2); Bilirubin Total 0.4 mg/dL (0.2-1.0); Potassium 3.3 mmol/L (3.5-5.1)
[2020-11-24] MEDS ORDERED: FAMOTIDINE 20 MG/2 ML VIAL IV ONE (08:38)
[2020-11-24] MEDS ORDERED: ONDANSETRON 4 MG/2 ML VIAL ONE ×2 (08:38→10:07)
[2020-11-24] MEDS ORDERED: MORPHINE 4 MG/ML SYR ONE ×2 (08:38→10:07)
[2020-11-24] MEDS ORDERED: NA CHLORIDE 0.9% 1,000 ML ONE ×2 (08:38→10:07)
--- NOTE | 2020-11-24 10:37 | RAD REPORT ---
EXAM DESCRIPTION: CT - Abdomen Pelvis W Contrast - 11/24/2020 10:20 am CLINICAL HISTORY: Abdominal pain COMPARISON: October 2020 TECHNIQUE: Computed axial tomography of the abdomen pelvis was obtained. 100 cc Isovue-300 was admin istered intravenously. Oral contrast was not requested which limits evaluation of bowel. All CT scans are performed using dose optimization technique as appropriate and may include automated exposure control or mA/KV adjustment according to patient size. FINDINGS: The liver, spleen, pancreas, adrenal and kidneys appear unremarkable. There is no evidence of diverticulitis. Normal appendix No adnexal mass. The wall of distal stomach appears thickened IMPRESSION: Apparent thickening of the wall of the distal stomach probably secondary to incomplete d istention. Pathology such as inflammation can also have this appearance
--- NOTE | 2020-11-24 10:40 | RAD REPORT ---
EXAM DESCRIPTION: US - Abdomen Exam Limited - 11/24/2020 9:14 am CLINICAL HISTORY: Abdominal pain. COMPARISON: 2006 FINDINGS: The gallbladder wall is not thickened. A gallstone is not seen. The biliary tree is normal caliber. IMPRESSION: Unremarkable gallbladder ultrasound.
--- NOTE | 2020-11-24 10:53 | EDPHYS ---
Physician Documentation [facility] Name: Patrizia Young Age: 29 yrs Sex: Female : 1990 Arrival Date: 11/24/2020 Time: 07:53 Bed 8 Private MD: ROBERT Physician Rajendra Stack HPI: 11/24 10:27 This 29 yrs old Female presents to ER via EMS with complaints of alicia Nausea/Vomiting. 10:27 The patient presents to the emergency department with nausea, vomiting, abdominal pain, alicia of the epigastric area, right upper quadrant and left upper quadrant. Onset: The symptoms/episode began/occurred 1 day(s) ago. Possible causes: unknown. The symptoms are aggravated by nothing. The symptoms are alleviated by nothing. Associated signs and symptoms: Pertinent positives: abdominal pain, nausea, vomiting. Severity of symptoms: At their worst the symptoms were moderate in the emergency department the symptoms are unchanged. The patient has not experienced similar symptoms in the past. Historical: - Allergies: 08:10 Amoxicillin; bp - Home Meds: 08:10 Alprazolam Oral for Anxiety [Active]; Wellbutrin Oral [Active]; bp - PMHx: 08:10 AGORAPHOBIA; Anxiety; Bipolar disorder; Depression; Panic Attacks; bp - Immunization history:: Adult Immunizations up to date. - Social history:: Smoking status: Patient reports the use of cigarette tobacco products, unknown amount Patient uses street drugs. - Family history:: not pertinent. ROS: 10:27 Constitutional: Negative for fever, chills, and weight loss, Eyes: Negative for injury, alicia pain, redness, and discharge, ENT: Negative for injury, pain, and discharge, Neck: Negative for injury, pain, and swelling, Cardiovascular: Negative for chest pain, palpitations, and edema, Respiratory: Negative for shortness of breath, cough, wheezing, and pleuritic chest pain, Back: Negative for injury and pain, : Negative for injury, bleeding, discharge, and swelling, MS/Extremity: Negative for injury and deformity, Skin: Negative for injury, rash, and discoloration, Neuro: Negative for headache, weakness, numbness, tingling, and seizure, Psych: Negative for depression, anxiety, suicide ideation, homicidal ideation, and hallucinations, Allergy/Immunology: Negative for hives, rash, and allergies, Endocrine: Negative for neck swelling, polydipsia, polyuria, polyphagia, and marked weight changes, Hematologic/Lymphatic: Negative for swollen nodes, abnormal bleeding, and unusual bruising. 10:27 Abdomen/GI: Positive for abdominal pain, nausea and vomiting, abdominal cramps, of the epigastric area, right upper quadrant and left upper quadrant. Exam: 10:27 Constitutional: This is a well developed, well nourished patient who is awake, alert, alicia and in no acute distress. Head/Face: Normocephalic, atraumatic. Eyes: Pupils equal round and reactive to light, extra-ocular motions intact. Lids and lashes normal. Conjunctiva and sclera are non-icteric and not injected. Cornea within normal limits. Periorbital areas with no swelling, redness, or edema. ENT: Nares patent. No nasal discharge, no septal abnormalities noted. Tympanic membranes are normal and external auditory canals are clear. Oropharynx with no redness, swelling, or masses, exudates, or evidence of obstruction, uvula midline. Mucous membranes moist. Neck: Trachea midline, no thyromegaly or masses palpated, and no cervical lymphadenopathy. Supple, full range of motion without nuchal rigidity, or vertebral point tenderness. No Meningismus. Chest/axilla: Normal chest wall appearance and motion. Nontender with no deformity. No lesions are appreciated. Cardiovascular: Regular rate and rhythm with a normal S1 and S2. No gallops, murmurs, or rubs. Normal PMI, no JVD. No pulse deficits. Respiratory: Lungs have equal breath sounds bilaterally, clear to auscultation and percussion. No rales, rhonchi or wheezes noted. No increased work of breathing, no retractions or nasal flaring. Back: No spinal tenderness. No costovertebral tenderness. Full range of motion. Skin: Warm, dry with normal turgor. Normal color with no rashes, no lesions, and no evidence of cellulitis. MS/ Extremity: Pulses equal, no cyanosis. Neurovascular intact. Full, normal range of motion. Neuro: Awake and alert, GCS 15, oriented to person, place, time, and situation. Cranial nerves II-XII grossly intact. Motor strength 5/5 in all extremities. Sensory grossly intact. Cerebellar exam normal. Normal gait. Psych: Awake, alert, with orientation to person, place and time. Behavior, mood, and affect are within normal limits. 10:27 Abdomen/GI: Inspection: abdomen appears normal, Bowel sounds: hyperactive, Palpation: mild abdominal tenderness, in the epigastric area, right upper quadrant and left upper quadrant, Liver: no appreciated palpable abnormalities, Hernia: not appreciated. Vital Signs: 07:55 BP 133 / 76; Pulse 99; Resp 16; Temp 98; Pulse Ox 100% ; bp 09:16 BP 109 / 80; Pulse 63; Resp 15; Pulse Ox 100% ; bp 10:53 BP 149 / 78; Pulse 68; Resp 17; Pulse Ox 100% ; bp MDM: 08:[address] [facility] 10:29 Differential diagnosis: Nonspecific abd pain, gastritis, cholecystitis, pancreatitis, alicia appendicitis, diverticulitis, viral gastroenteritis, gastroenteritis. Data reviewed: vital signs, nurses notes, lab test result(s), radiologic studies, CT scan, ultrasound. Data interpreted: site monitor: rate is 63 beats/min, rhythm is regular, Pulse oximetry: on room air is 100 %. Counseling: I had a detailed discussion with the patient and/or guardian regarding: the historical points, exam findings, and any diagnostic results supporting the discharge/admit diagnosis, lab results, radiology results. 11/24 08:09 Order name: Basic Metabolic Panel; Complete Time: 10:47 [facility] 11/24 08:09 Order name: CBC with Diff; Complete Time: 10:47 [facility] 11/24 08:09 Order name: Hepatic Function; Complete Time: 10:47 [facility] 11/24 08:09 Order name: Lipase; Complete Time: 10:47 [facility] 11/24 08:09 Order name: Alcohol Level; Complete Time: 10:47 [facility] 11/24 08:09 Order name: UDS [facility] 11/24 08:09 Order name: CT Abd/Pelvis - IV Contrast Only; Complete Time: 10:47 [facility] 11/24 08:09 Order name: US Abdomen Limited; Complete Time: 10:47 [facility] 11/24 09:35 Order name: SARS-COV-2 RT PCR; Complete Time: 10:47 [facility] 11/24 11:05 Order name: Urine Dipstick-Ancillary [facility] 11/24 11:07 Order name: Urine --Ancillary (enter results) 11/24 11:07 Order name: Urine --Ancillary [facility] 11/24 08:09 Order name: IV Saline Lock; Complete Time: 08:14 [facility] 11/24 08:09 Order name: Labs collected and sent; Complete Time: 08:14 [facility] 11/24 08:09 Order name: Urine Dipstick-Ancillary (obtain specimen); Complete Time: 11:20 [facility] 11/24 08:09 Order name: Urine Test (obtain specimen); Complete Time: 11:20 [facility] 11/24 10:51 Order name: PO challenge: juice; Complete Time: 11:08 [facility] Administered Medications: 08:20 Drug: NS 0.9% 1000 ml Route: IV; Rate: 1 bolus; Site: right wrist; bp 11:18 Follow up: IV Status: Completed infusion; IV Intake: 1000ml bp 08:20 Drug: Zofran (Ondansetron) 4 mg Route: IVP; Site: right wrist; bp 09:17 Follow up: Response: No adverse reaction bp 08:20 Drug: Pepcid (famotidine) 20 mg Route: IVP; Site: right wrist; bp 09:17 Follow up: Response: No adverse reaction bp 08:23 Drug: morphine 4 mg Route: IVP; Site: right wrist; bp 09:17 Follow up: Response: Pain is decreased bp 09:50 Drug: morphine 4 mg Route: IVP; Site: right upper arm; bp 10:49 Follow up: Response: Pain is decreased bp 09:50 Drug: Zofran (Ondansetron) 4 mg Route: IVP; Site: right upper arm; bp 10:49 Follow up: Response: No adverse reaction bp 09:50 Drug: NS 0.9% 1000 ml Route: IV; Rate: 1 bolus; Site: right upper arm; bp 11:17 Follow up: IV Status: Completed infusion; IV Intake: 1000ml bp 11:00 Drug: GI Cocktail without - (Maalox Suspension 30 ml, Lidocaine Liquid 2 % 15 bp ml) Route: PO; 11:08 Follow up: Response: No adverse reaction bp Disposition: 11/24/20 10:52 Discharged to Home. Impression: Nausea and vomiting, Gastritis, unspecified, Abdominal tenderness. - Condition is Stable. - Discharge Instructions: Abdominal Pain, Adult, Gastritis, Adult, Abdominal Pain, Adult, [id number]. - Prescriptions for Bentyl 20 mg Oral Tablet - take 1 tablet by ORAL route every 6 hours As needed; 20 tablet. Pepcid 20 mg Oral Tablet - take 1 tablet by ORAL route every 12 hours for 10 days; 20 tablet. Zofran 4 mg Oral Tablet - take 1 tablet by ORAL route every 12 hours As needed; 20 tablet. - Medication Reconciliation Form, Thank You Letter, Antibiotic Education, Prescription Opioid Use, Work release form form. - Follow up: Private Physician; When: 2 - 3 days; Reason: Recheck today's complaints, Continuance of care, Re-evaluation by your physician. Follow up: Ivette Moore MD; When: 2 - 3 days; Reason: Recheck today's complaints, Continuance of care, Re-evaluation by your physician. - Problem is new. - Symptoms have improved. Signatures: Dispatcher [employer] [facility] Rajendra Stack MD MD cha Peltier, Brian, RN RN bp Corrections: (The following items were deleted from the chart) 08:42 08:09 CORONAVIRUS+MR.LAB.RUTHZ ordered. [facility] 11:26 10:52 11/24/2020 10:52 Discharged to Home. Impression: Nausea and vomiting; Gastritis, bp unspecified; Abdominal tenderness. Condition is Stable. Forms are Medication Reconciliation Form, Thank You Letter, Antibiotic Education, Prescription Opioid Use. Follow up: Private Physician; When: 2 - 3 days; Reason: Recheck today's complaints, Continuance of care, Re-evaluation by your physician. Follow up: Ivette Moore; When: 2 - 3 days; Reason: Recheck today's complaints, Continuance of care, Re-evaluation by your physician. Problem is new. Symptoms have improved. alicia
--- NOTE | 2020-11-24 10:53 | ER ---
Nurse's Notes [facility] Name: Patrizia Young Age: 29 yrs Sex: Female : 1990 Arrival Date: 11/24/2020 Time: 07:53 Bed 8 Private MD: Diagnosis: Nausea and vomiting;Gastritis, unspecified;Abdominal tenderness Presentation: 11/24 07:55 Chief complaint: EMS states: EPIGASTRIC PAIN WITH N/V x2 HR. Coronavirus screen: At bp this time, the client does not indicate any symptoms associated with coronavirus-19. Ebola Screen: No symptoms or risks identified at this time. Initial Sepsis Screen: Does the patient meet any 2 criteria? No. Patient's initial sepsis screen is negative. Does the patient have a suspected source of infection? No. Patient's initial sepsis screen is negative. Risk Assessment: Do you want to hurt yourself or someone else? Patient reports no desire to harm self or others. Onset of symptoms was November 24, 2020 at 05:00. Care prior to arrival: Medication(s) given: 30 MG TORADOL, 25 PHENERGAN, 200 ML NS IV initiated. 20 GA, in the right wrist. 07:55 Method Of Arrival: EMS: [facility] bp 07:55 Acuity: GLADYS 3 bp Triage Assessment: 08:10 General: Appears distressed, uncomfortable, Behavior is cooperative, appropriate for bp age, agitated, anxious. Pain: Complains of pain in abdomen. EENT: No deficits noted. Neuro: Level of Consciousness is awake, alert, obeys commands, Oriented to Appropriate for age. Cardiovascular: Rhythm is sinus rhythm. Respiratory: No deficits noted. GI: Reports epigastric pain, nausea, vomiting. : No signs and/or symptoms were reported regarding the genitourinary system. Derm: No deficits noted. Musculoskeletal: No deficits noted. Historical: - Allergies: 08:10 Amoxicillin; bp - Home Meds: 08:10 Alprazolam Oral for Anxiety [Active]; Wellbutrin Oral [Active]; bp - PMHx: 08:10 AGORAPHOBIA; Anxiety; Bipolar disorder; Depression; Panic Attacks; bp - Immunization history:: Adult Immunizations up to date. - Social history:: Smoking status: Patient reports the use of cigarette tobacco products, unknown amount Patient uses street drugs. - Family history:: not pertinent. Screenin:12 Abuse screen: Denies threats or abuse. Denies injuries from another. Nutritional bp screening: No deficits noted. Tuberculosis screening: No symptoms or risk factors identified. Fall Risk None identified. Assessment: 08:12 General: SEE TRIAGE NOTE. bp 09:16 Reassessment: No changes from previously documented assessment. Patient and/or family bp updated on plan of care and expected duration. Pain level reassessed. PIV D/C BY PT. 10:53 Reassessment: No changes from previously documented assessment. Patient and/or family bp updated on plan of care and expected duration. Pain level reassessed. D/C ON HOLD FOR LAB RESULTS. 11:08 Reassessment: PT D/C HOME AMBULATORY. DX WITH GASTRITIS. GI: Patient currently denies bp normal bowel habits. GI: Abdomen is non-distended. Vital Signs: 07:55 BP 133 / 76; Pulse 99; Resp 16; Temp 98; Pulse Ox 100% ; bp 09:16 BP 109 / 80; Pulse 63; Resp 15; Pulse Ox 100% ; bp 10:53 BP 149 / 78; Pulse 68; Resp 17; Pulse Ox 100% ; bp ED Course: 07:53 Patient arrived in ED. bp 08:02 Rajendra Stack MD is Attending Physician. alicia 08:04 Panchito Smith, ALEJANDRINA is Primary Nurse. bp 08:09 Triage completed. bp 08:10 Arm band placed on. bp 08:12 Patient has correct armband on for positive identification. Bed in low position. Call bp light in reach. Side rails up X2. 08:12 Maintain EMS IV. Dressing intact. Good blood return noted. Site clean \T\ dry. Gauge \T\ bp site: 20 GA R WRIST. 08:56 Radiology exam delayed due to test not completed at this time. nj 09:14 US Abdomen Limited In Process Unspecified. EDMS 09:38 Inserted saline lock: 22 gauge in right upper arm, using aseptic technique. bp 09:49 Radiology exam delayed due to test not completed at this time. nj 10:20 CT Abd/Pelvis - IV Contrast Only In Process Unspecified. EDMS 10:52 Ivette Moore MD is Referral Physician. alicia 11:10 No provider procedures requiring assistance completed. IV discontinued, intact, bp bleeding controlled, No redness/swelling at site. Pressure dressing applied. Administered Medications: 08:20 Drug: NS 0.9% 1000 ml Route: IV; Rate: 1 bolus; Site: right wrist; bp 11:18 Follow up: IV Status: Completed infusion; IV Intake: 1000ml bp 08:20 Drug: Zofran (Ondansetron) 4 mg Route: IVP; Site: right wrist; bp 09:17 Follow up: Response: No adverse reaction bp 08:20 Drug: Pepcid (famotidine) 20 mg Route: IVP; Site: right wrist; bp 09:17 Follow up: Response: No adverse reaction bp 08:23 Drug: morphine 4 mg Route: IVP; Site: right wrist; bp 09:17 Follow up: Response: Pain is decreased bp 09:50 Drug: morphine 4 mg Route: IVP; Site: right upper arm; bp 10:49 Follow up: Response: Pain is decreased bp 09:50 Drug: Zofran (Ondansetron) 4 mg Route: IVP; Site: right upper arm; bp 10:49 Follow up: Response: No adverse reaction bp 09:50 Drug: NS 0.9% 1000 ml Route: IV; Rate: 1 bolus; Site: right upper arm; bp 11:17 Follow up: IV Status: Completed infusion; IV Intake: 1000ml bp 11:00 Drug: GI Cocktail without - (Maalox Suspension 30 ml, Lidocaine Liquid 2 % 15 bp ml) Route: PO; 11:08 Follow up: Response: No adverse reaction bp Intake: 11:17 IV: 1000ml; Total: 1000ml. bp 11:18 IV: 1000ml; Total: 2000ml. bp Outcome: 10:52 Discharge ordered by . alicia 11:11 Discharged to home ambulatory. bp 11:11 Condition: stable 11:11 Discharge instructions given to patient, Instructed on discharge instructions, follow up and referral plans. medication usage, Demonstrated understanding of instructions, follow-up care, medications, Prescriptions given X 3. 11:26 Patient left the ED. bp Signatures: Dispatcher [employer] EDRajendra Espitia MD MD cha Jordan, Nathan nj Peltier, Brian, RN RN bp
[2020-11-24 11:05] LABS: Urine Blood Negative (Negative); Urine Glucose Negative (Negative); Urine Protein Trace (Negative); Urine Specific Gravity 1.015 (1.005-1.030); Urine pH 7.5 (5.0-7.0)
[2020-11-24] MEDS ORDERED: LIDOCAINE VISCOUS 2% SOLN 15 ML UDC ONE (11:16)
[2020-11-24] MEDS ORDERED: MAGNES/ALUMIN/SIMET 30ML UCUP ONE (11:16)
[2020-11-24 11:28] LABS: Barbiturates NEGATIVE (NEGATIVE); Benzodiazepines POSITIVE (NEGATIVE); Cocaine POSITIVE (NEGATIVE); METHAMPHETAM NEGATIVE (NEGATIVE); Methadone NEGATIVE (NEGATIVE); Opiates POSITIVE (NEGATIVE); Phencyclidine NEGATIVE (NEGATIVE); THC Cannibis NEGATIVE (NEGATIVE)
[2020-11-24 12:10] LABS: Urine Specific Gravity/Preg 1.015 (1.005-1.030)
[2020-11-24 23:21] VITALS: BP 149/78; TEMP 98; O2SAT 100
[2020-11-25] MEDS ORDERED: DIPHENHYDRAMINE 50 MG/ML VIAL ONE (14:19)
[2020-11-25] MEDS ORDERED: POTASSIUM CL SA 10 MEQ TAB PO ONE (14:19)
== END 2020-11-24 11:26 | disposition home or self-care (01) ==
LOC: ER 07:46
DX: K29.70 Gastritis, unspecified, without bleeding (principal); R10.819 Abdominal tenderness, unspecified site; F31.9 Bipolar disorder, unspecified; F17.210 Nicotine dependence, cigarettes, uncomplicated; Z20.822 Contact with and (suspected) exposure to COVID-19; Z88.1 Allergy status to other antibiotic agents
CPT/HCPCS: 36415; 74177; 76705; 80048; 80076; 80307; 80320; 81003; 81025; 83690; 85025; 99284; J2405; J7030; Q9967; U0003

== ENCOUNTER 2020-11-25 05:30 | Emergency (ER) | payer SELFPAY ==
--- OUTSIDE RECORDS SUMMARY | 2020-11-25 05:33 | XMS REPORT | Continuity of Care Document ---
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 Allergies, Adverse Reactions, Alerts Allergy [...] Comments Source History of tobacco Cigarette Smoker [facility] use Sex Assigned At [facility] alth Cigarettes smoked 2016-05-29 2016-05-[address] [facility] current (pack per 00:00:00 00:00:00 day) - Reported Alcohol intake 2016-05-29 2016-05-29 Current [facility] lt 00:00:00 00:00:00 non-drinker of alcohol (finding) Smoking Status Start Date Stop Date Source Current every day smoker 2016-05-29 00:00:00 [facility] Medications This patient has no known medications. Procedures This patient has no known procedures. Plan of Care Planned Activity Planned Date Details Comments Source Future Scheduled Test 2021-03-21 00:00:[address] [facility] Seasonal Mar to August (>/= 19 yrs) [code = IMM Influenza Seasonal Mar to August (>/= 19 yrs)] Future Scheduled Test 2020 00:00:[address] [facility] malignant neoplasm of cervix (procedure) [code = 908688167] Future Scheduled Test 2011-12-18 00:00:[address] [facility] malignant neoplasm of cervix (procedure) [code = 445426547] Future Scheduled Test 2006 00:00:00 COVID-19 Vaccine (1) [facility] [code = COVID-19 Vaccine (1)] Encounters Start End Encounter Admission Attending Care Care Encounter Source Date/Time Date/Time Type Type Clinicians Facility Department ID 2020-11-17 2020-11-17 [facility] [id number] 03:29:00 06:24:00 Olimpia Chisholm [id number] [place] [id number] [place] [id number] Results Test Description Test Time Test Comments Results Result Comments Source POC Glucose, Blood 2016-10-20 12:08:00 Test Item Value Reference Range Interpretation Comme nts POC Glucose (test code = POCGLUC) >600 mg/dL 70-115 Notify RN or HIV [id number] 14:54:00 Test Item Value Reference Range Interpretation Comments HIV 1/2 Antibody Non-Reactive Non-Reactive N HIV1/2 Anti body screen (test code = result indicate s the HIV1/2AB) absence of HIV1 and SEA1timcwhath.H owever, A Non-Reactive screen result does not [...] HIV RNA Quantit ative is recommended. RPR, [id number] 11:34:00 Test Item Value Reference Range Interpretation Comments RPR (test code = RPR) Non-Reactive Non-Reactive N Thyroid Stimulating Hormone (TSH)2016-10-16 08:47:00 Test Item Value Reference Range Interpretation Comments TSH (test code = TSH) 0.85 mIU/mL 0.270-4.200 N BHCG, Serum, [id number] 08:32:00 Test Item Value Reference Range Interpretation Comments Preg Qual [Se] (test code = BSHCG) Negative Negative N CBC with [id number] 08:18:00 Test Item Value Reference Range Interpretation [...] code = ALYMPH) 3.0 K/cumm 0.5-4.6 N [place] Abs (test code = AMONO) 0.6 K/cumm 0.0-1.2 N Eos Abs (test code = AEOS) 0.04 K/cumm 0.00-0.74 N Baso Abs (test code = ABASO) 0.0 K/cumm 0.00-0.21 N
--- NOTE | 2020-11-25 06:18 | ER ---
Nurse's Notes 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 I jb4 was here this morning and they gave me zofran. I am still very anxious, can't sleep, eat or keep anything down when I try. Coronavirus screen: Client denies travel out of the [place] in the last 14 days. At this time, the client does not indicate any symptoms associated with coronavirus-19. Ebola Screen: No symptoms or risks identified at this time. Initial Sepsis Screen: Does the patient meet any 2 criteria? No. Patient's initial sepsis screen is negative. Does the patient have a suspected source of infection? No. Patient's initial sepsis screen is negative. Risk Assessment: Do you want to hurt yourself or someone else? Patient reports no desire to harm self or others. Onset of symptoms was November 24, 2020. Transition of care: patient was not received from another setting of care. 05:54 Method Of Arrival: Ambulatory [facility] 05:54 Acuity: GLADYS 4 jb4 Historical: - Allergies: 05:57 Amoxicillin; jb4 - Home Meds: 05:57 Alprazolam Oral for Anxiety [Active]; Wellbutrin Oral [Active]; jb4 - PMHx: 05:57 AGORAPHOBIA; Anxiety; Bipolar disorder; Depression; Panic Attacks; jb4 - PSHx: 05:57 None; jb4 - Immunization history:: Adult Immunizations up to date. - Social history:: Smoking status: Patient reports the use of cigarette tobacco products, smokes one pack cigarettes per day. Patient uses street drugs, xanax, synthetic marijuana. Screenin:58 Abuse screen: Denies threats or abuse. Nutritional screening: No deficits noted. jb4 Tuberculosis screening: No symptoms or risk factors identified. Fall Risk None identified. Assessment: 05:58 General: Appears in no apparent distress. uncomfortable, Behavior is cooperative, jb4 anxious. Pain: Complains of pain in generalized body aches. Pain does not radiate. Pain currently is 10 out of 10 on a pain scale. Neuro: Level of Consciousness is awake, alert, obeys commands, Oriented to person, place, time, situation. Cardiovascular: Patient's skin is warm and dry. Respiratory: Airway is patent Respiratory effort is even, unlabored, Respiratory pattern is regular, symmetrical. GI: No signs and/or symptoms were reported involving the gastrointestinal system. : No signs and/or symptoms were reported regarding the genitourinary system. EENT: No signs and/or symptoms were reported regarding the EENT system. Derm: Skin is intact, Skin is pink, warm \T\ dry. Musculoskeletal: Circulation, motion, and sensation intact. Range of motion:. Vital Signs: 05:54 BP 167 / 105; Pulse 72; Resp 24; Temp 97.9(TE); Pulse Ox 99% on R/A; Weight 63.5 kg jb4 (R); Height 5 ft. 4 in. (162.56 cm) (R); Pain 10/10; 06:00 BP 128 / 77; Pulse 64; Resp 20; Pulse Ox 100% on R/A; jb4 05:54 Body Mass Index 24.03 (63.50 kg, 162.56 cm) jb4 ED Course: 05:33 Patient arrived in ED. anil 05:46 Jean-Paul Gomes MD is Attending Physician. tw4 05:53 Trevor Chen, RN is Primary Nurse. jb4 05:56 Triage completed. jb4 05:57 Arm band placed on right wrist. jb4 05:58 Patient has correct armband on for positive identification. Bed in low position. Call jb4 light in reach. Side rails up X 1. Pulse ox on. NIBP on. 06:16 No provider procedures requiring assistance completed. Patient did not have IV access jb4 during this emergency room visit. Administered Medications: No medications were administered Outcome: 06:16 Medical screen evaluation completed per provider. jb4 06:16 Condition: stable 06:16 Following a medical screening exam, the patient was provided information regarding alternative care sites and resources available per registration personnel. 06:18 Discharge ordered by . tw4 06:19 Patient left the ED. 4 Signatures: Chanell Hagan James, RN RN 4 [place], Jean-Paul, MD MD tw4
--- NOTE | 2020-11-25 06:19 | EDPHYS ---
Physician Documentation [facility] Name: Patrizia Young Age: 29 yrs Sex: Female : 1990 Arrival Date: 11/25/2020 Time: 05:33 Bed 8 Private MD: ED Physician Jean-Paul Gomes HPI: 11/25 05:53 This 29 yrs old Female presents to ER via Unassigned with complaints of tw4 WITHDRAWL PAINS. 05:53 The patient presents to the emergency department with anxiety, DRUG ADDICTION. Onset: tw4 The symptoms/episode began/occurred today. Past psychiatric history: Prior diagnosis: addiction history. Associated signs and symptoms: Pertinent positives; anxiety, Pertinent negatives: chest pain, chills, delusions, depression, fever, hallucinations, headache, homicidal ideation, nausea, night sweats, palpitations, paranoia, shortness of breath, substance abuse, suicide ideation, tremor. The patient has not experienced similar symptoms in the past. Historical: - Allergies: 05:57 Amoxicillin; jb4 - Home Meds: 05:57 Alprazolam Oral for Anxiety [Active]; Wellbutrin Oral [Active]; jb4 - PMHx: 05:57 AGORAPHOBIA; Anxiety; Bipolar disorder; Depression; Panic Attacks; jb4 - PSHx: 05:57 None; jb4 - Immunization history:: Adult Immunizations up to date. - Social history:: Smoking status: Patient reports the use of cigarette tobacco products, smokes one pack cigarettes per day. Patient uses street drugs, xanax, synthetic marijuana. ROS: 05:53 Constitutional: Negative for fever, chills, and weight loss, Eyes: Negative for injury, tw4 pain, redness, and discharge, Cardiovascular: Negative for chest pain, palpitations, and edema, Respiratory: Negative for shortness of breath, cough, wheezing, and pleuritic chest pain, Abdomen/GI: Negative for abdominal pain, nausea, vomiting, diarrhea, and constipation, Back: Negative for injury and pain, MS/Extremity: Negative for injury and deformity, Skin: Negative for injury, rash, and discoloration, Neuro: Negative for headache, weakness, numbness, tingling, and seizure. 05:53 Psych: Positive for anxiety, drug dependence, Negative for depression, alcohol dependence, auditory hallucinations, visual hallucinations, homicidal ideation, insomnia, suicide gesture, suicidal ideation. Exam: 05:53 Head/Face: Normocephalic, atraumatic. Eyes: Pupils equal round and reactive to light, tw4 extra-ocular motions intact. Lids and lashes normal. Conjunctiva and sclera are non-icteric and not injected. Cornea within normal limits. Periorbital areas with no swelling, redness, or edema. Chest/axilla: Normal chest wall appearance and motion. Nontender with no deformity. No lesions are appreciated. Cardiovascular: Regular rate and rhythm with a normal S1 and S2. No gallops, murmurs, or rubs. Normal PMI, no JVD. No pulse deficits. Respiratory: Lungs have equal breath sounds bilaterally, clear to auscultation and percussion. No rales, rhonchi or wheezes noted. No increased work of breathing, no retractions or nasal flaring. Abdomen/GI: Soft, non-tender, with normal bowel sounds. No distension or tympany. No guarding or rebound. No evidence of tenderness throughout. Back: No spinal tenderness. No costovertebral tenderness. Full range of motion. Skin: Warm, dry with normal turgor. Normal color with no rashes, no lesions, and no evidence of cellulitis. MS/ Extremity: Pulses equal, no cyanosis. Neurovascular intact. Full, normal range of motion. Neuro: Awake and alert, GCS 15, oriented to person, place, time, and situation. Cranial nerves II-XII grossly intact. Motor strength 5/5 in all extremities. Sensory grossly intact. Cerebellar exam normal. Normal gait. 05:53 Constitutional: The patient appears anxious. 05:53 Psych: Behavior/mood is anxious, Affect is animated, Oriented to person, place, time, Patient has no thoughts/intents to harm self or others. Vital Signs: 05:54 BP 167 / 105; Pulse 72; Resp 24; Temp 97.9(TE); Pulse Ox 99% on R/A; Weight 63.5 kg jb4 (R); Height 5 ft. 4 in. (162.56 cm) (R); Pain 10/10; 06:00 BP 128 / 77; Pulse 64; Resp 20; Pulse Ox 100% on R/A; jb4 05:54 Body Mass Index 24.03 (63.50 kg, 162.56 cm) jb4 MDM: 05:53 Data reviewed: vital signs, nurses notes. Medical screen evaluation completed. EMTALA tw4 emergency medical condition absent. 06:18 Counseling: I had a detailed discussion with the patient and/or guardian regarding: the tw4 historical points, exam findings, and any diagnostic results supporting the discharge/admit diagnosis. Special discussion: I discussed with the patient/guardian in detail that at this point there is no indication for admission to the hospital. It is understood, however, that if the symptoms persist or worsen the patient needs to return immediately for re-evaluation. 06:18 Patient medically screened. tw4 Administered Medications: No medications were administered Disposition: 11/25/20 06:18 Discharged to Home. Impression: Anxiety disorder, unspecified. - Condition is Stable. - Medication Reconciliation Form, Thank You Letter, Antibiotic Education, Prescription Opioid Use form. - Follow up: Private Physician; When: Upon discharge from the Emergency Department; Reason: Recheck today's complaints, Continuance of care, Re-evaluation by your physician. - Problem is an ongoing problem. - Symptoms are unchanged. Signatures: Trevor Chen, RN RN jb4 Jean-Paul Gomes MD MD tw4 Corrections: (The following items were deleted from the chart) 06:19 06:18 11/25/2020 06:18 Discharged to Home. Impression: Anxiety disorder, unspecified. jb4 Condition is Stable. Forms are Medication Reconciliation Form, Thank You Letter, Antibiotic Education, Prescription Opioid Use. Follow up: Private Physician; When: Upon discharge from the Emergency Department; Reason: Recheck today's complaints, Continuance of care, Re-evaluation by your physician. Problem is an ongoing problem. Symptoms are unchanged. tw4
[2020-11-25 06:38] VITALS: TEMP 97.9
[2020-11-25 06:39] VITALS: BP 128/77; O2SAT 100
== END 2020-11-25 06:19 | disposition home or self-care (01) ==
LOC: ER 05:30
DX: F41.9 Anxiety disorder, unspecified (principal); F17.210 Nicotine dependence, cigarettes, uncomplicated; F40.01 Agoraphobia with panic disorder; F31.9 Bipolar disorder, unspecified
CPT/HCPCS: 99282

== ENCOUNTER 2020-11-25 10:12 | Emergency (ER) | payer SELFPAY ==
--- OUTSIDE RECORDS SUMMARY | 2020-11-25 10:14 | XMS REPORT | Continuity of Care Document ---
:1990 Author Organization [facility] t Address [address] [place] [address] Care Team Providers Name Role Phone UNKNOWN Primary Care Physician Unavailable Singer OVIEDO Attending Clinician Doctor Unassigned, Name Attending Clinician Unavailable Dominga Goldman DO Attending Clinician Susie DACOSTA Attending Clinician Unavailable Susie DACOSTA Admitting Clinician Unavailable Problems Condition Condition Condition Status Onset Resolution Last Treating Co mments Source Name Details Category Date Date Treatment Clinician Date Benzodiaze Benzodiaze Disease Active [facility] 02-24 Methodi dependence dependence 00:00: st 00 Sedative, Sedative, Disease Active Kerlinesherice alcantara hypnotic hypnotic 02-20 Method i or or 00:00: st 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 Suicidal [facility] Heal th Panic Panic Disease Active [place] disorder disorder Health with with agoraphobi agoraphobi a a Severe Severe Disease Active [place] episode of episode of 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, disorder, 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 Anxiety Anxiety Disease Active [facility] Allergies, Adverse Reactions, Alerts Allergy Allergy [...] Comments Source History of tobacco Cigarette Smoker [facility] use Cigarettes smoked 2016-05-29 2016-05-29 [facility] current (pack per 00:00:00 00:00:00 day) - Reported Alcohol intake 2016-05-29 2016-05-29 [facility] non-drinker of alcohol (finding) Sex Ass[birth year] At [birth year] [place] 00:00:00 00:00:00 [employer] Smoking Status Start Date Stop Date Source Current every day smoker 2016-05-29 00:00:00 [facility] Medications This patient has no known medications. Procedures This patient has no known procedures. Plan of Care Planned Activity Planned Date Details Comments Source Future Scheduled Test 2021-03-21 00:00:00 IMM Influenza [facility] Seasonal Mar to August (>/= 19 yrs) [code = IMM Influenza Seasonal Mar to August (>/= 19 yrs)] Future Scheduled Test 2020 00:00:00 Screening for [facility] malignant neoplasm of cervix (procedure) [code = 414109940] Future Scheduled Test 2011-12-18 00:00:00 Screening for [facility] malignant neoplasm of cervix (procedure) [code = [id number]] Future Scheduled Test 2006 00:00:00 COVID-19 Vaccine (1) [facility] [code = COVID-19 Vaccine (1)] Encounters Start End Encounter Admission Attending Care Care Encounter Source Date/Time Date/Time Type Type Clinicians Facility Department ID 2020-11-25 2020-11-25 Emergency , [facility] [id number] 06:52:00 09:13:00 Jere Chisholm [id number] [place] [id number] [place] [id number] 2020-11-25 2020-11-25 Orders Doctor QING [id number] 00:00:00 00:00:00 Only UnassignedFOUZIA [id number] [place] [id number] 2020-11-17 2020-11-17 Emergency [facility] [id number] 03:29:00 06:24:00 Olimpia Chisholm [id number] [place] [id number] [place] [id number] Results Test Description Test Time Test Comments Results Result Comments Source POC Glucose, Blood 2016-10-20 12:08:00 Test Item Value Reference Range Interpretation Comme nts POC Glucose (test code = POCGLUC) >600 mg/dL 70-115 Notify RN or HIV [id number] 14:54:00 Test Item Value Reference Range Interpretation Comments HIV 1/2 Antibody Non-Reactive Non-Reactive N HIV1/2 Anti body screen (test code = result indicate s the HIV1/2AB) absence of HIV1 and YVT9xwynbnlvu.H owever, A Non-Reactive screen result does not [...] rule o ut exposure or infection.If ac [place] HIV-1 is suspec edith, HIV RNA Quantit ative is recommended. RPR, [id number] 11:34:00 Test Item Value Reference Range Interpretation Comments RPR (test code = RPR) Non-Reactive Non-Reactive N Thyroid Stimulating Hormone (TSH)2016-10-16 08:47:00 Test Item Value Reference Range Interpretation Comments TSH (test code = TSH) 0.85 mIU/mL 0.270-4.200 N BHCG, Serum, [id number] 08:32:00 Test Item Value Reference Range Interpretation Comments Preg Qual [Se] (test code = BSHCG) Negative Negative N CBC with [id number] 08:18:00 Test Item Value Reference Range Interpretation [...] code = ALYMPH) 3.0 K/cumm 0.5-4.[address] Abs (test code = AMONO) 0.6 K/cumm 0.0-1.2 N Eos Abs (test code = AEOS) 0.04 K/cumm 0.00-0.74 N Baso Abs (test code = ABASO) 0.0 K/cumm 0.00-0.21 N
[2020-11-25 10:46] LABS: Absolute Lymphocytes (CBC) 2.6 K/uL (0.7-4.9); Basophils % 0.5 % (0-1.3); Hematocrit 37.1 % (36.0-45.0); Lymphocytes % 19.7 % (15.3-44.8); MPV 8.7 fL (7.6-11.3); RBC Red Blood Cell Count 4.61 M/uL (3.86-4.86)
[2020-11-25] MEDS ORDERED: LORazepam 2 MG/ML VIAL ONE ×3 (10:47→22:37)
[2020-11-25 11:00] LABS: Protime INR 1.18
[2020-11-25 11:01] LABS: Urine Blood Trace-intact (Negative); Urine Glucose Negative (Negative); Urine Protein Negative (Negative); Urine Specific Gravity 1.025 (1.005-1.030)
[2020-11-25 11:23] LABS: ALT/SGPT 18 U/L (12-78); AST/SGOT 11 U/L (15-37); Albumin 3.7 g/dL (3.4-5.0); Alkaline Phosphatase 52 U/L (45-117); BUN Blood Urea Nitrogen 4 mg/dL (7-18); Bicarbonate 20 mmol/L (21-32); Bilirubin Direct 0.2 mg/dL (0-0.2); Bilirubin Total 0.6 mg/dL (0.2-1.0); Glucose Level 117 mg/dL (74-106); Potassium 3.1 mmol/L (3.5-5.1); Protein, Total 7.5 g/dL (6.4-8.2); Sodium Level 142 mmol/L (136-145)
[2020-11-25 11:44] LABS: Barbiturates NEGATIVE (NEGATIVE); Benzodiazepines POSITIVE (NEGATIVE); Cocaine POSITIVE (NEGATIVE); METHAMPHETAM NEGATIVE (NEGATIVE); Methadone NEGATIVE (NEGATIVE); Opiates NEGATIVE (NEGATIVE); Phencyclidine NEGATIVE (NEGATIVE); THC Cannibis NEGATIVE (NEGATIVE)
[2020-11-25 13:31] LABS: Urine Specific Gravity/Preg 1.025 (1.005-1.030)
--- NOTE | 2020-11-25 15:53 | ER ---
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 Called 911 for SI and ca1 severe anxiety. Pt reports HX of anxiety, depression and SI. Reports of attempting to quit drug use. 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 Reports use of Xanax and Synthetic marijuana. Pt appears anxious and agitated. VS BP 132/66, HR 72, SPO2 100% RA. Coronavirus screen: Client denies travel out of the [place] in the last 14 days. At this time, the client does not indicate any symptoms associated with coronavirus-19. Ebola Screen: Patient negative for fever greater than or equal to 101.5 degrees Fahrenheit, and additional compatible Ebola Virus Disease symptoms Patient denies exposure to infectious person. Patient denies travel to an Ebola-affected area in the 21 days before illness onset. No symptoms or risks identified at this time. Initial Sepsis Screen: Does the patient meet any 2 criteria? No. Patient's initial sepsis screen is negative. Does the patient have a suspected source of infection? No. Patient's initial sepsis screen is negative. Risk Assessment: Do you want to hurt yourself or someone else? Patient reports desire/thoughts of hurting themselves or someone else. Provider notified. Onset of symptoms was November 25, 2020. 10:18 Method Of Arrival: EMS: [facility] ca1 10:18 Acuity: GLADYS 2 ca1 Triage Assessment: 10:22 General: Appears uncomfortable, Behavior is agitated, anxious. Pain: Complains of pain ca1 in all over, anna elbows and anna knees Pain currently is 8 out of 10 on a pain scale. EENT: No signs and/or symptoms were reported regarding the EENT system. Neuro: Level of Consciousness is awake, alert, obeys commands, Oriented to person, place, time, situation. Cardiovascular: Heart tones S1 S2 present Capillary refill < 3 seconds Patient's skin is warm and dry. Respiratory: Airway Respiratory effort is even, unlabored, Respiratory pattern is regular, symmetrical, Breath sounds are clear bilaterally. GI: Abdomen is flat, non-distended, Bowel sounds present X 4 quads. Abd is soft and non tender X 4 quads. : No signs and/or symptoms were reported regarding the genitourinary system. Derm: Skin is intact, is healthy with good turgor, Skin is pink, warm \\T\\ dry. Bruising that is dark purple, on right arm and left arm. Musculoskeletal: Circulation, motion, and sensation intact. Capillary refill < 3 seconds. 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 - Social history:: Smoking status: Patient reports the use of cigarette tobacco products, smokes one pack cigarettes per day. Patient uses street drugs, marijuana, , Xanax. - Family history:: not pertinent. - Hospitalizations: : No recent hospitalization is reported. Screenin:24 Abuse screen: Denies threats or abuse. Denies injuries from another. Nutritional ca1 screening: No deficits noted. Tuberculosis screening: No symptoms or risk factors identified. Fall Risk IV access (20 points). Assessment: 10:24 Reassessment: see triage notes. ca1 10:59 Reassessment: Patient appears in no apparent distress at this time. Patient and/or ca1 family updated on plan of care and expected duration. Pain level reassessed. Patient is alert, oriented x 3, equal unlabored respirations, skin warm/dry/pink. General: Appears in no apparent distress. comfortable, Behavior is calm, cooperative. 11:35 Reassessment: Patient appears in no apparent distress at this time. Patient and/or ca1 family updated on plan of care and expected duration. Pain level reassessed. Patient is alert, oriented x 3, equal unlabored respirations, skin warm/dry/pink. Patient states feeling better. Patient states symptoms have improved. 12:23 Reassessment: Patient appears in no apparent distress at this time. Patient and/or ca1 family updated on plan of care and expected duration. Pain level reassessed. Patient is alert, oriented x 3, equal unlabored respirations, skin warm/dry/pink. 13:30 Reassessment: Patient appears in no apparent distress at this time. Patient and/or ca1 family updated on plan of care and expected duration. Pain level reassessed. Patient is alert, oriented x 3, equal unlabored respirations, skin warm/dry/pink. 14:17 Reassessment: Patient appears in no apparent distress at this time. No changes from ca1 previously documented assessment. Patient and/or family updated on plan of care and expected duration. Pain level reassessed. Patient is alert, oriented x 3, equal unlabored respirations, skin warm/dry/pink. 15:11 Reassessment: Patient appears in no apparent distress at this time. No changes from ca1 previously documented assessment. Patient and/or family updated on plan of care and expected duration. Pain level reassessed. Patient is alert, oriented x 3, equal unlabored respirations, skin warm/dry/pink. [facility] at bedside. 16:03 Reassessment: Patient appears in no apparent distress at this time. Patient and/or ca1 family updated on plan of care and expected duration. Pain level reassessed. Patient is alert, oriented x 3, equal unlabored respirations, skin warm/dry/pink. 16:48 Reassessment: Patient appears in no apparent distress at this time. Patient is alert, ca1 oriented x 3, equal unlabored respirations, skin warm/dry/pink. General: Appears Behavior is agitated, anxious, Notified provider. VO Ativan 1mg IV. 21:01 Reassessment: Patient and/or family updated on plan of care and expected duration. Pain ea level reassessed. Patient is alert, oriented x 3, equal unlabored respirations, skin warm/dry/pink. 08 03:11 Reassessment: Patient and/or family updated on plan of care and expected duration. Pain ea level reassessed. Patient is alert, oriented x 3, equal unlabored respirations, skin warm/dry/pink. Pt reports she is unable to sleep, restless. Provider notified, medication order obtained, medication administered, pt tolerated well. 04:26 Reassessment: Patient and/or family updated on plan of care and expected duration. Pain ea level reassessed. Patient is alert, oriented x 3, equal unlabored respirations, skin warm/dry/pink. 07:15 Reassessment: pt denies SI or HI thoughts at this time. General: Appears in no apparent jd3 distress. comfortable, Behavior is calm, cooperative, appropriate for age. Pain: Denies pain. Neuro: Level of Consciousness is awake, alert, obeys commands, Oriented to person, place, time, situation. Cardiovascular: Denies chest pain, Capillary refill < 3 seconds Patient's skin is warm and dry. Respiratory: Airway is patent Respiratory effort is even, unlabored, Respiratory pattern is regular, symmetrical. GI: No signs and/or symptoms were reported involving the gastrointestinal system. : No signs and/or symptoms were reported regarding the genitourinary system. EENT: No signs and/or symptoms were reported regarding the EENT system. Derm: Skin is intact, Skin is dry, Skin is normal, Skin temperature is warm. Musculoskeletal: No signs and/or symptoms reported regarding the musculoskeletal system. Psych: 11/25 10:40 Otto Suicide Severity Screening: In the past month, have you wished you were ca1 or wished you could go to sleep and not wake up? Patient responds "yes." Based off the client's responses additional C-SSRS screening is required. "In the past month, have you actually had any thoughts of killing yourself?" Patient responds "yes." Based off the client's response additional Otto suicide severity screening questions to be further documented on paper forms. "In your lifetime, have you ever done anything, started to do anything, or prepared to do anything to end your life?" Patient responds "yes." Patient reports suicidal intent occurred greater than 3 months prior. Subjective: Patient's mood is hopeless, Delusions are persecutory, Hallucinations are auditory, visual, Having thoughts of suicide. Plan for suicide is shoot self on face or OD. Objective: Patient is cooperative, restless, Speech is loud, rambling, rapid, Affect is inappropriate. Interventions: Removed personal items and placed in bag. Patient placed in hospital gown. Searched person for dangerous items. Urine collected and sent for urine drug test. Belonging list filled out. Safety Checks: Personal items have been removed. Door is open. No visitors are present at this time. Patient uses benzodiazepines 1/2 tab BID, not prescribed daily. Last use was 2 days ago. Patient uses marijuana one joint daily Last use was 2 days ago. Patient uses tobacco 1 pack Frequency daily, Last use was 1 minutes ago. 11/26 07:16 Commitment: pt discharged. jd3 Vital Signs: 11/25 10:18 BP 158 / 93; Pulse 85; Resp 22; Temp 98.6(O); Pulse Ox 100% on R/A; Weight 63.5 kg (R); ca1 Height 5 ft. 4 in. (162.56 cm) (R); Pain 8/10; 17:00 BP 143 / 76; Pulse 81; Resp 18 S; Pulse Ox 100% on R/A; ca1 10:18 Body Mass Index 24.03 (63.50 kg, 162.56 cm) ca1 ED Course: 10:17 Patient arrived in ED. ca1 10:20 Manohar Fragoso MD is Attending Physician. rn 10:21 Triage completed. ca1 10:22 Arm band placed on right wrist. ca1 10:24 Patient has correct armband on for positive identification. Placed in gown. Bed in low ca1 position. Call light in reach. Side rails up X2. Pulse ox on. NIBP on. Pillow given. 10:24 Sitter at bedside. ca1 10:25 Samantha Cintron, ALEJANDRINA is Primary Nurse. ca1 10:36 Initial lab(s) drawn, by nh, sent to lab. Inserted saline lock: 22 gauge in right ca1 forearm, using aseptic technique. Blood collected. 12:28 Acetaminophen Sent. sv 13:55 contacted [facility] to have pt evaluated by screener. bd 15:33 screener in room to evaluate pt at this time. bd 16:04 faxed chart to [facility], [facility], [facility]. 18:00 Report given to ALEJANDRINA Hoffmann. ca1 21:01 No provider procedures requiring assistance completed. ea 22:07 Juliane from [place]' called to inform us that the patient is on the [facility] list.mw2 11/26 06:57 Attending Physician role handed off by Manohar Fragoso MD alicia 06:57 Rajendra Stack MD is Attending Physician. alicia 06:59 Dougie Wyatt MD is Referral Physician. alicia 07:17 IV discontinued, intact, bleeding controlled, No redness/swelling at site. Pressure jd3 dressing applied. Administered Medications: 11/25 10:38 Drug: Ativan (LORazepam) 1 mg Route: IVP; Site: right forearm; ca1 11:10 Follow up: Response: No adverse reaction; Marked relief of symptoms; Anxiety decreased ca1 13:52 Drug: Potassium Chloride 40 mEq Route: PO; ca1 16:03 Follow up: Response: No adverse reaction ca1 14:03 Drug: Benadryl (diphenhydrAMINE) 25 mg Route: IVP; Site: right forearm; ca1 15:00 Follow up: Response: No adverse reaction; Marked relief of symptoms ca1 16:48 Drug: Ativan (LORazepam) 1 mg Route: IVP; Site: right forearm; ca1 22:14 Drug: Zofran (Ondansetron) 4 mg Route: IVP; Site: right forearm; ea 23:30 Follow up: Response: No adverse reaction ea 22:19 Drug: Ativan (LORazepam) 1 mg Route: IVP; Site: right forearm; ea 23:30 Follow up: Response: No adverse reaction ea 11/26 03:11 Drug: Geodon (ziprasidone) 20 mg Route: IM; Site: left deltoid; ea 03:11 Drug: Ativan (LORazepam) 2 mg Route: IVP; Site: right antecubital; ea Outcome: 11/25 15:53 ER care complete, transfer ordered by . rn 11/26 07:02 Discharge ordered by . alicia 07:17 Discharged to home ambulatory, with family. jd3 07:17 Condition: stable 07:17 Discharge instructions given to patient, Instructed on discharge instructions, follow up and referral plans. medication usage, Demonstrated understanding of instructions, follow-up care, medications, Prescriptions given X 1. 07:17 Patient left the ED. jd3 Signatures: Amada Gold Stephanie RN Rajendra Cat MD MD cha Nieto, Roman, MD MD rn Antunez, Elena, RN RN ea Davies, Jonathon, RN RN jd3 [place], MyKena mw2 Samantha Cintron RN RN ca1 Corrections: (The following items were deleted from the chart) 11/25 11:36 11:35 Reassessment: Patient appears in no apparent distress at this time. Patient ca1 and/or family updated on plan of care and expected duration. Pain level reassessed. Patient is alert, oriented x 3, equal unlabored respirations, skin warm/dry/pink. ca1 12:16 10:40 Patient uses benzodiazepines Patient uses marijuana Patient uses tobacco 1 pack ca1 Frequency daily, Last use was 1 minutes ago. ca1 12:17 10:40 Otto Suicide Severity Screening: In the past month, have you wished you were ca1 or wished you could go to sleep and not wake up? Patient responds "yes." Based off the client's responses additional C-SSRS screening is required. "In the past month, have you actually had any thoughts of killing yourself?" Patient responds "yes." Based off the client's response additional Otto suicide severity screening questions to be further documented on paper forms. "In your lifetime, have you ever done anything, started to do anything, or prepared to do anything to end your life?" Patient responds "yes." Patient reports suicidal intent occurred greater than 3 months prior. ca1 18: 10:40 Subjective: Patient's mood is hopeless, Delusions are persecutory, Hallucinations ca1 are auditory, Having thoughts of suicide. Plan for suicide is shoot self on face or OD ca1 18:01 10:40 Otto Suicide Severity Screening: In the past month, have you wished you were ca1 or wished you could go to sleep and not wake up? Patient responds "yes." Based off the client's responses additional C-SSRS screening is required. "In the past month, have you actually had any thoughts of killing yourself?" Patient responds "yes." Based off the client's response additional Otto suicide severity screening questions to be further documented on paper forms. "In your lifetime, have you ever done anything, started to do anything, or prepared to do anything to end your life?" Patient responds "yes." Patient reports suicidal intent occurred greater than 3 months prior. ca1 18: 18:01 Subjective: Hallucinations are visual, ca1 ca1
--- NOTE | 2020-11-25 15:54 | EDPHYS ---
Physician Documentation [facility] Name: Patrizia Young Age: 29 yrs Sex: Female : 1990 Arrival Date: 11/25/2020 Time: 10:17 Bed 19 Private MD: ROBERT Physician Rajendra Stack HPI: 11/25 10:38 This 29 yrs old Female presents to ER via EMS with complaints of Suicidal rn Ideation. 10:38 The patient presents to the emergency department with anxiety, depression, suicide rn ideation. Onset: The symptoms/episode began/occurred at an unknown time. Associated signs and symptoms: Pertinent positives; anxiety, suicide ideation, Pertinent negatives: fever, homicidal ideation. Severity of symptoms: At their worst the symptoms were moderate in the emergency department the symptoms are unchanged. The patient has experienced similar episodes in the past. The patient has been recently seen by a physician:. Reports 2 ER visits in last day, sent home both times, reports anxiety getting worse, is having thoughts of killing herself, does not want to be in her body. Reports previous attempt. Also reports hx of xanax and synthetic marijuana abuse, but has not used in several days. . 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 - Social history:: Smoking status: Patient reports the use of cigarette tobacco products, smokes one pack cigarettes per day. Patient uses street drugs, marijuana, , Xanax. - Family history:: not pertinent. - Hospitalizations: : No recent hospitalization is reported. ROS: 10:38 Constitutional: Negative for fever, chills, and weight loss, Eyes: Negative for injury, rn pain, redness, and discharge, Neck: Negative for injury, pain, and swelling, Cardiovascular: Negative for chest pain, and edema, Respiratory: Negative for shortness of breath, cough, wheezing, and pleuritic chest pain, Abdomen/GI: Negative for abdominal pain, nausea, vomiting, diarrhea, and constipation, Back: Negative for injury and pain, MS/Extremity: Negative for injury and deformity, Skin: Negative for injury, rash, and discoloration, Neuro: Negative for headache, weakness, numbness, tingling, and seizure, Psych: + suicidal ideation, + anxiety, + depression Exam: 10:38 Constitutional: This is a well developed, well nourished patient who is awake, alert, rn tearful, screaming and crying. Head/Face: Normocephalic, atraumatic. Eyes: Periorbital areas with no swelling, redness, or edema. Cardiovascular: Regular rate and rhythm. No pulse deficits. Respiratory: + hyperventilating, crying. Abdomen/GI: soft, non-tender Skin: Warm, dry MS/ Extremity: Pulses equal, no cyanosis. Neuro: Awake and alert, GCS 15, oriented to person, place, time, and situation. Cranial nerves II-XII grossly intact. Motor strength 5/5 in all extremities. Sensory grossly intact. Cerebellar exam normal. Normal gait. 11/26 07:09 ECG was reviewed by the Attending Physician. [facility] Vital Signs: 11/25 10:18 BP 158 / 93; Pulse 85; Resp 22; Temp 98.6(O); Pulse Ox 100% on R/A; Weight 63.5 kg (R); ca1 Height 5 ft. 4 in. (162.56 cm) (R); Pain 8/10; 17:00 BP 143 / 76; Pulse 81; Resp 18 S; Pulse Ox 100% on R/A; ca1 10:18 Body Mass Index 24.03 (63.50 kg, 162.56 cm) ca1 MDM: 10:20 Patient medically screened. rn 15:47 ED course: [facility] evaluated patient, recommends inpatient evaluation.. rn 15:51 Differential diagnosis: depression, anxiety, suicidal ideations. Data reviewed: vital rn signs, nurses notes, lab test result(s), EKG, and as a result, I will admit patient. Counseling: I had a detailed discussion with the patient and/or guardian regarding: the historical points, exam findings, and any diagnostic results supporting the discharge/admit diagnosis, lab results, the need to transfer to another facility, [facility] does not immediately have the required specialist. Response to treatment: the patient's symptoms have mildly improved after treatment, and as a result, I will admit patient. 11/26 06:58 Patient medically screened. alicia 11/25 10:21 Order name: Acetaminophen rn 11/25 10:21 Order name: Basic Metabolic Panel; Complete Time: 13:49 rn 11/25 10:21 Order name: CBC with Diff; Complete Time: 13:49 rn 11/25 10:21 Order name: ETOH Level; Complete Time: 13:49 rn 11/25 10:21 Order name: Hepatic Function; Complete Time: 13:49 rn 11/25 10:21 Order name: PT-INR; Complete Time: 13:49 rn 11/25 10:21 Order name: Ptt, Activated; Complete Time: 13:49 rn 11/25 10:21 Order name: Salicylate; Complete Time: 13:49 rn 11/25 10:21 Order name: Urine Drug Screen; Complete Time: 13:49 rn 11/25 10:22 Order name: Acetaminophen Level; Complete Time: 13:49 EDMS 0607 11:00 Order name: Urine Dipstick-Ancillary; Complete Time: 13:49 EDMS 07 11:01 Order name: Urine --Ancillary (enter results); Complete Time: 13:49 bd 11/25 20:57 Order name: SARS-COV-2 RT PCR; Complete Time: 06:58 EDMS 07 10:21 Order name: Urine Test (obtain specimen); Complete Time: 10:59 rn 07 10:21 Order name: Suicide Precautions; Complete Time: 10:53 rn 07 10:21 Order name: EKG; Complete Time: 10:22 rn 07 10:21 Order name: EKG - Nurse/Tech; Complete Time: 10:50 rn 07 10:21 Order name: IV Saline Lock; Complete Time: 10:40 rn 07 10:21 Order name: Labs collected and sent; Complete Time: 10:39 rn 07 10:21 Order name: Suicide Screening ([place]); Complete Time: 12:17 rn 07 17:29 Order name: Diet Regular; Complete Time: 17:29 ca1 11/25 10:21 Order name: Urine Dipstick-Ancillary (obtain specimen); Complete Time: 10:59 rn EC:09 Rate is 52 beats/min. Rhythm is regular. QRS [place] is Normal. [place] interval is normal. QRS alicia interval is normal. QT interval is normal. No Q waves. T waves are Normal. No ST changes noted. Clinical impression: Sinus bradycardia and No evidence of ischemia. Interpreted by me. Reviewed by me. Administered Medications: 11/25 10:38 Drug: Ativan (LORazepam) 1 mg Route: IVP; Site: right forearm; ca1 11:10 Follow up: Response: No adverse reaction; Marked relief of symptoms; Anxiety decreased ca1 13:52 Drug: Potassium Chloride 40 mEq Route: PO; ca1 16:03 Follow up: Response: No adverse reaction ca1 14:03 Drug: Benadryl (diphenhydrAMINE) 25 mg Route: IVP; Site: right forearm; ca1 15:00 Follow up: Response: No adverse reaction; Marked relief of symptoms ca1 16:48 Drug: Ativan (LORazepam) 1 mg Route: IVP; Site: right forearm; ca1 22:14 Drug: Zofran (Ondansetron) 4 mg Route: IVP; Site: right forearm; ea 23:30 Follow up: Response: No adverse reaction ea 22:19 Drug: Ativan (LORazepam) 1 mg Route: IVP; Site: right forearm; ea 23:30 Follow up: Response: No adverse reaction ea 11/26 03:11 Drug: Geodon (ziprasidone) 20 mg Route: IM; Site: left deltoid; ea 03:11 Drug: Ativan (LORazepam) 2 mg Route: IVP; Site: right antecubital; ea Disposition: 11/26/20 07:02 Discharged to Home. Impression: Suicidal ideations, Bipolar disorder, Cocaine abuse, Insomnia. - Condition is Stable. - Discharge Instructions: Stimulant Use Disorder-Cocaine, Insomnia, Bipolar Disorder, Suicidal Feelings: How to Help Yourself. - Prescriptions for Hydroxyzine HCl 25 mg Oral Tablet - take 1 tablet by ORAL route every 6 hours As needed; 30 tablet. - Medication Reconciliation Form, Thank You Letter, Antibiotic Education, Prescription Opioid Use form. - Follow up: Private Physician; When: 1 - 2 days; Reason: Recheck today's complaints, Continuance of care, Re-evaluation by your physician. Follow up: Dougie Wyatt MD; When: 1 - 2 days; Reason: Recheck today's complaints, Re-evaluation by your physician. - Problem is new. - Symptoms have improved. Signatures: Dispatcher [employer] [facility] Rajendra Stack MD MD cha Nieto, Roman, MD MD rn Antunez, Elena RN Salvador Farah ea, RN RN jd3 Samantha Cintron RN RN ca1 Corrections: (The following items were deleted from the chart) 11/25 19:51 19:24 CORONAVIRUS+MR.LAB.BRZ ordered. [facility] 11/26 06:59 11/25 15:53 11/25/2020 15:53 Transfer ordered to Psych Facility. Diagnosis is Anxiety alicia disorder, unspecified; Suicidal ideations. Reason for transfer: Higher level of care. Accepting physician is . Condition is Stable. Problem is an ongoing problem. Symptoms have improved. rn 11/26 07:17 07:02 11/26/2020 07:02 Discharged to Home. Impression: Suicidal ideations; Bipolar jd3 disorder; Cocaine abuse; Insomnia. Condition is Stable. Forms are Medication Reconciliation Form, Thank You Letter, Antibiotic Education, Prescription Opioid Use. Follow up: Private Physician; When: 1 - 2 days; Reason: Recheck today's complaints, Continuance of care, Re-evaluation by your physician. Follow up: Dougie Wyatt; When: 1 - 2 days; Reason: Recheck today's complaints, Re-evaluation by your physician. Problem is new. Symptoms have improved. alicia
[2020-11-25] MEDS ORDERED: ONDANSETRON 4 MG/2 ML VIAL ONE (22:32)
[2020-11-26] MEDS ORDERED: ZIPRASIDONE MESYLA 20 MG/VIAL IM ONE (03:25)
[2020-11-26] MEDS ORDERED: LORazepam 2 MG/ML VIAL ONE (03:25)
[2020-11-26 07:29] VITALS: TEMP 98.6; O2SAT 100
[2020-11-26 07:37] VITALS: BP 143/76
--- NOTE | 2020-11-27 07:31 | EKG ---
Test Date: 2020-11-25 Test Time: 10:48:20 Emergency Registrar: CLAUDETTE MEASUREMENT RESULTS: Intervals: Rate: 52 RI: 144 QRSD: 82 QT: 498 QTc: 463 [place]: P: 10 RI: 144 QRS: 65 T: 40 INTERPRETIVE STATEMENTS: Sinus bradycardia Otherwise normal ECG Compared to ECG 09/02/2020 10:42:36 Sinus rhythm no longer present ST (T wave) deviation no longer present Electronically Signed On 11-27-20 07:26:59 CDT by Teddy Huber
== END 2020-11-26 07:17 | disposition home or self-care (01) ==
LOC: ER 10:12
DX: F14.10 Cocaine abuse, uncomplicated (principal); G47.00 Insomnia, unspecified; F31.9 Bipolar disorder, unspecified; F17.210 Nicotine dependence, cigarettes, uncomplicated; Z20.822 Contact with and (suspected) exposure to COVID-19; Z88.1 Allergy status to other antibiotic agents
CPT/HCPCS: 36415; 80048; 80076; 80307; 80320; 80329; 81003; 81025; 85025; 85610; 85730; 93005; 96372; 99285; J2405; J3486; U0003

== ENCOUNTER 2020-12-03 10:09 | Emergency (ER) | payer SELFPAY ==
[2020-12-03 10:55] LABS: Urine Blood Negative (Negative); Urine Glucose Negative (Negative); Urine Protein Negative (Negative); Urine Specific Gravity 1.015 (1.005-1.030); Urine pH 8.5 (5.0-7.0)
[2020-12-03] MEDS ORDERED: LORazepam 2 MG/ML VIAL ONE (11:04)
[2020-12-03] MEDS ORDERED: NA CHLORIDE 0.9% 1,000 ML ONE (11:04)
[2020-12-03 11:11] LABS: Urine Specific Gravity/Preg 1.015 (1.005-1.030)
--- NOTE | 2020-12-03 11:19 | ER ---
Nurse's Notes [facility] Name: Patrizia Young Age: 29 yrs Sex: Female : 1990 Arrival Date: 12/03/2020 Time: 10:15 Bed 18 Private MD: Diagnosis: Anxiety disorder, unspecified;Urinary tract infection, site not specified Presentation: 12/03 10:15 Chief complaint: EMS states: Pt c/o anxiety and depression, stated is having a Xanax vg1 withdraw and stated uses synthetic marijuana. Pt Denies SI. Coronavirus screen: Client denies travel out of the [place] in the last 14 days. Ebola Screen: Patient negative for fever greater than or equal to 101.5 degrees Fahrenheit, and additional compatible Ebola Virus Disease symptoms. Initial Sepsis Screen: Does the patient meet any 2 criteria? No. Patient's initial sepsis screen is negative. Does the patient have a suspected source of infection? No. Patient's initial sepsis screen is negative. Risk Assessment: Do you want to hurt yourself or someone else? Patient reports no desire to harm self or others. Onset of symptoms was December 03, 2020. 10:15 Method Of Arrival: EMS: [facility] vg1 10:15 Acuity: GLADYS 3 vg1 Triage Assessment: 10:18 General: Appears in no apparent distress. uncomfortable, Behavior is cooperative, vg1 anxious, crying. Pain: Complains of pain in body Pain currently is 5 out of 10 on a pain scale. 10:18 EENT: No signs and/or symptoms were reported regarding the EENT system. Neuro: Level of vg1 Consciousness is awake, alert, obeys commands, Oriented to person, place, time, situation. Cardiovascular: Patient's skin is warm and dry. Respiratory: Airway is patent Respiratory effort is even, unlabored. GI: No signs and/or symptoms were reported involving the gastrointestinal system. : No signs and/or symptoms were reported regarding the genitourinary system. Derm: Skin is intact, Skin is clammy. Musculoskeletal: Circulation, motion, and sensation intact. 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 - Social history:: Smoking status: Patient reports the use of cigarette tobacco products, Pt states use of synthetic marijuana. Screenin:20 Abuse screen: Denies threats or abuse. Nutritional screening: No deficits noted. vg1 Tuberculosis screening: No symptoms or risk factors identified. Fall Risk No fall in past 12 months (0 pts). No secondary diagnosis (0 pts). IV access (20 points). Ambulatory Aid- None/Bed Rest/Nurse Assist (0 pts). Gait- Normal/Bed Rest/Wheelchair (0 pts) Mental Status- Oriented to own ability (0 pts). Total Chahal Fall Scale indicates No Risk (0-24 pts). Assessment: 10:20 Reassessment: see triage. vg1 11:04 Reassessment: No changes from previously documented assessment. Patient and/or family vg1 updated on plan of care and expected duration. Pain level reassessed. Pt states is having ABD pain, rates pain 10/10. Pt states 'I dont know what to do anymore, I just want help' Provider notified. 12:25 Reassessment: Patient appears in no apparent distress at this time. Patient and/or vg1 family updated on plan of care and expected duration. Pain level reassessed. Patient denies pain at this time. Patient states feeling better. Psych: 10:21 [place] Suicide Severity Screening: In the past month, have you wished you were vg1 or wished you could go to sleep and not wake up? Patient responds "No." "In the past month, have you actually had any thoughts of killing yourself?" Patient responds "no." "In your lifetime, have you ever done anything, started to do anything, or prepared to do anything to end your life?" Patient responds "yes." Pt stated 'I dont remember any more'. 10:23 Patient uses marijuana synthetic. vg1 Vital Signs: 10:15 BP 157 / 93; Pulse 102; Resp 20; Temp 97.5; Pulse Ox 99% ; Weight 63.5 kg; Height 5 ft. vg1 4 in. (162.56 cm); Pain 5/10; 12:25 BP 125 / 72; Pulse 88; Resp 16; Pulse Ox 100% on R/A; vg1 10:15 Body Mass Index 24.03 (63.50 kg, 162.56 cm) vg1 ED Course: 10:15 Patient arrived in ED. vg1 10:15 Yogesh Lyons PA is PHCP. lazaro 10:15 Rajendra Stack MD is Attending Physician. [facility] 10:18 Triage completed. vg1 10:18 Arm band placed on. vg1 10:20 Patient has correct armband on for positive identification. Placed in gown. Bed in low vg1 position. Call light in reach. Side rails up X 1. 10:40 Agatha Woodward, RN is Primary Nurse. vg1 10:57 Initial lab(s) drawn, by me, sent to lab. Inserted saline lock: 20 gauge in right vg1 wrist, using aseptic technique. Blood collected. 12:26 No provider procedures requiring assistance completed. IV discontinued, intact, vg1 bleeding controlled, No redness/swelling at site. Pressure dressing applied. Administered Medications: 11:00 Drug: NS 0.9% 1000 ml Route: IV; Rate: 1 bolus; Site: right wrist; vg1 12:12 Follow up: IV Status: Completed infusion; IV Intake: 1000ml vg1 11:01 Drug: Ativan (LORazepam) 1 mg Route: IVP; Site: right wrist; vg1 12:14 Follow up: Response: No adverse reaction vg1 Intake: 12:12 IV: 1000ml; Total: 1000ml. vg1 Outcome: 11:18 Discharge ordered by . [facility] 12:26 Discharged to home ambulatory. vg1 12:26 Condition: stable 12:26 Discharge instructions given to patient, Instructed on discharge instructions, follow up and referral plans. medication usage, Demonstrated understanding of instructions, follow-up care, medications, Prescriptions given X 2. 12:26 Patient left the ED. vg1 Signatures: Yogesh Lyons PA PA jmm Garcia, Victoria, RN RN vg1
--- NOTE | 2020-12-03 11:19 | EDPHYS ---
Physician Documentation [facility] Name: Patrizia Young Age: 29 yrs Sex: Female : 1990 Arrival Date: 12/03/2020 Time: 10:15 Bed 18 Private MD: ROBERT Physician Rajendra Stack HPI: 12/03 10:33 This 29 yrs old Female presents to ER via EMS with complaints of Anxiety, jmm Depression. 10:33 The patient presents to the emergency department with anxiety. Onset: The jmm symptoms/episode began/occurred gradually, today. Associated signs and symptoms: Pertinent negatives: homicidal ideation, suicide ideation. Patient states she is unsure how to take care of her anxiety. She was discharged from an inpatient psychiatric facility due to an arrest warrant. . 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 - Social history:: Smoking status: Patient reports the use of cigarette tobacco products, Pt states use of synthetic marijuana. ROS: 10:33 Constitutional: Negative for fever, chills, and weight loss, Cardiovascular: Negative jmm for chest pain, palpitations, and edema, Respiratory: Negative for shortness of breath, cough, wheezing, and pleuritic chest pain. 10:33 Psych: Positive for anxiety. 10:33 All other systems are negative. Exam: 10:33 Head/Face: atraumatic. Eyes: EOMI, no conjunctival erythema appreciated jmm 10:33 ENT: Moist Mucus Membranes Neck: Trachea midline, Supple Chest/axilla: Normal chest wall appearance and motion. Cardiovascular: Regular rate and rhythm. No edema appreciated Respiratory: Normal respirations, no respiratory distress appreciated Abdomen/GI: Non distended, soft Back: Normal ROM Skin: General appearance color normal MS/ Extremity: Moves all extremities, no obvious deformities appreciated, no edema noted to the lower extremities Neuro: Awake and alert, normal gait 10:33 Constitutional: The patient appears alert, anxious. 10:33 Psych: Behavior/mood is anxious, Patient has no thoughts/intents to harm self or others. Vital Signs: 10:15 BP 157 / 93; Pulse 102; Resp 20; Temp 97.5; Pulse Ox 99% ; Weight 63.5 kg; Height 5 ft. vg1 4 in. (162.56 cm); Pain 5/10; 12:25 BP 125 / 72; Pulse 88; Resp 16; Pulse Ox 100% on R/A; vg1 10:15 Body Mass Index 24.03 (63.50 kg, 162.56 cm) vg1 MDM: 10:16 Patient medically screened. [facility] 11:17 Data reviewed: vital signs, nurses notes. Counseling: I had a detailed discussion with lazaro the patient and/or guardian regarding: the historical points, exam findings, and any diagnostic results supporting the discharge/admit diagnosis, the need for outpatient follow up, to return to the emergency department if symptoms worsen or persist or if there are any questions or concerns that arise at home. ED course: Patient's symptoms have improved. Will follow up with [facility] tomorrow. Patient is otherwise given strict return precautions. Patient understood and agrees with the plan of care. . 12:19 ED course: NARX score 030. Will prescribed ativan po, small quantity. Patient will [facility] follow up tomorrow with [facility]. . 12/03 10:17 Order name: Acetaminophen [facility] 12/03 10:17 Order name: Basic Metabolic Panel; Complete Time: 11:53 [facility] 12/03 10:17 Order name: CBC with Diff; Complete Time: 11:35 [facility] 12/03 10:17 Order name: ETOH Level; Complete Time: 11:36 [facility] 12/03 10:17 Order name: Hepatic Function; Complete Time: 11:53 [facility] 12/03 10:17 Order name: PT-INR; Complete Time: 11:35 [facility] 12/03 10:17 Order name: Ptt, Activated; Complete Time: 11:35 [facility] 12/03 10:17 Order name: Salicylate; Complete Time: 11:53 [facility] 12/03 10:17 Order name: Urine Drug Screen; Complete Time: 11:25 [facility] 12/03 10:18 Order name: Acetaminophen Level; Complete Time: 11:53 [facility] 12/03 10:55 Order name: Urine Dipstick-Ancillary; Complete Time: 10:57 [facility] 12/03 11:04 Order name: Urine --Ancillary (enter results); Complete Time: 11:25 md 12/03 10:17 Order name: EKG; Complete Time: 10:19 [facility] 12/03 10:17 Order name: EKG - Nurse/Tech; Complete Time: 11:02 [facility] 12/03 10:17 Order name: IV Saline Lock; Complete Time: 11:03 [facility] 12/03 10:17 Order name: Labs collected and sent; Complete Time: 11:03 [facility] 12/03 10:17 Order name: Suicide Screening ([place]); Complete Time: 10:40 [facility] 12/03 10:17 Order name: Urine Dipstick-Ancillary (obtain specimen); Complete Time: 11:03 [facility] Administered Medications: 11:00 Drug: NS 0.9% 1000 ml Route: IV; Rate: 1 bolus; Site: right wrist; vg1 12:12 Follow up: IV Status: Completed infusion; IV Intake: 1000ml vg1 11:01 Drug: Ativan (LORazepam) 1 mg Route: IVP; Site: right wrist; vg1 12:14 Follow up: Response: No adverse reaction vg1 Disposition: 12/04 07:55 Co-signature as Attending Physician, Rajendra Stack MD I agree with the assessment and alicia plan of care. Disposition: 12/03/20 11:18 Discharged to Home. Impression: Anxiety disorder, unspecified, Urinary tract infection, site not specified. - Condition is Stable. - Discharge Instructions: Panic Attacks, Urinary Tract Infection, Adult. - Prescriptions for Macrobid 100 mg Oral Capsule - take 1 capsule by ORAL route every 12 hours for 7 days; 14 capsule. Ativan 1 mg Oral Tablet - take 1 tablet by ORAL route every 8 hours As needed; 10 tablet. - Medication Reconciliation Form, Thank You Letter, Antibiotic Education, Prescription Opioid Use form. - Follow up: Private Physician; When: Tomorrow; Reason: Recheck today's complaints, Continuance of care, Re-evaluation by your physician. Signatures: Dispatcher [employer] Rajendra Bautista MD MD cha Mickail, Joel, PA PA jmm Garcia, Victoria, RN RN vg1 Corrections: (The following items were deleted from the chart) 12/03 11:19 11:18 12/03/2020 11:18 Discharged to Home. Impression: Anxiety disorder, unspecified. [facility] Condition is Stable. Forms are Medication Reconciliation Form, Thank You Letter, Antibiotic Education, Prescription Opioid Use. Follow up: Private Physician; When: Tomorrow; Reason: Recheck today's complaints, Continuance of care, Re-evaluation by your physician. marlene 12:26 11:19 12/03/2020 11:18 Discharged to Home. Impression: Anxiety disorder, unspecified; vg1 Urinary tract infection, site not specified. Condition is Stable. Forms are Medication Reconciliation Form, Thank You Letter, Antibiotic Education, Prescription Opioid Use. Follow up: Private Physician; When: Tomorrow; Reason: Recheck today's complaints, Continuance of care, Re-evaluation by your physician. [facility]
[2020-12-03 11:21] LABS: Barbiturates NEGATIVE (NEGATIVE); Benzodiazepines POSITIVE (NEGATIVE); Cocaine POSITIVE (NEGATIVE); METHAMPHETAM NEGATIVE (NEGATIVE); Methadone NEGATIVE (NEGATIVE); Opiates NEGATIVE (NEGATIVE); Phencyclidine NEGATIVE (NEGATIVE); THC Cannibis POSITIVE (NEGATIVE)
[2020-12-03 11:22] LABS: Absolute Lymphocytes (CBC) 2.7 K/uL (0.7-4.9); Basophils % 0.4 % (0-1.3); Hematocrit 44.5 % (36.0-45.0); Lymphocytes % 18.2 % (15.3-44.8); MPV 8.9 fL (7.6-11.3); RBC Red Blood Cell Count 5.43 M/uL (3.86-4.86)
[2020-12-03 11:28] LABS: Protime INR 0.91
[2020-12-03 11:42] LABS: ALT/SGPT 20 U/L (12-78); AST/SGOT 15 U/L (15-37); Albumin 3.9 g/dL (3.4-5.0); Alkaline Phosphatase 67 U/L (45-117); BUN Blood Urea Nitrogen 9 mg/dL (7-18); Bicarbonate 21 mmol/L (21-32); Bilirubin Direct 0.1 mg/dL (0-0.2); Bilirubin Total 0.3 mg/dL (0.2-1.0); Glucose Level 99 mg/dL (74-106); Potassium 3.8 mmol/L (3.5-5.1); Protein, Total 8.3 g/dL (6.4-8.2); Sodium Level 140 mmol/L (136-145)
[2020-12-03 12:35] VITALS: TEMP 97.5
[2020-12-03 12:37] VITALS: BP 125/72; O2SAT 100
--- NOTE | 2020-12-04 07:39 | EKG ---
Test Date: 2020-12-03 Test Time: 10:50:47 Nurse Ldr: NICOLAS MEASUREMENT RESULTS: Intervals: Rate: 73 GA: 134 QRSD: 76 QT: 404 QTc: 445 [place]: P: 17 GA: 134 QRS: 54 T: 44 INTERPRETIVE STATEMENTS: Normal sinus rhythm Normal ECG Compared to ECG 11/25/2020 10:48:20 Sinus bradycardia no longer present Electronically Signed On 12-04-20 07:36:02 CDT by Teddy Huber
== END 2020-12-03 12:26 | disposition home or self-care (01) ==
LOC: ER 10:09
DX: N39.0 Urinary tract infection, site not specified (principal); Z72.0 Tobacco use; Z88.1 Allergy status to other antibiotic agents
CPT/HCPCS: 36415; 80048; 80076; 80307; 80320; 80329; 81003; 81025; 85025; 85610; 85730; 93005; 96361; 96374; 99284; J7030

== ENCOUNTER 2020-12-07 03:00 | Emergency (ER) | payer SELFPAY ==
--- OUTSIDE RECORDS SUMMARY | 2020-12-07 03:04 | XMS REPORT | Continuity of Care Document ---
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, disorder, 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 Anxiety Anxiety Disease Active [facility] Allergies, Adverse Reactions, Alerts Allergy Allergy [...] Comments Source History of tobacco Cigarette Smoker [facility] use Sex Assigned At [facility] alth Cigarettes smoked 2016-05-29 2016-05-29 [facility] current (pack per 00:00:00 00:00:00 day) - Reported Alcohol intake 2016-05-29 2016-05-29 Current [facility] lt 00:00:00 00:00:00 non-drinker of alcohol (finding) Smoking Status Start Date Stop Date Source Current every day smoker 2016-05-29 00:00:00 [facility] Medications This patient has no known medications. Procedures This patient has no known procedures. Plan of Care Planned Activity Planned Date Details Comments Source Future Scheduled Test 2021-03-21 00:00:00 IMM Influenza [facility] Seasonal Mar to August (>/= 19 yrs) [code = IMM Influenza Seasonal Mar to August (>/= 19 yrs)] Future Scheduled Test 2020 00:00:00 Screening for [facility] malignant neoplasm of cervix (procedure) [code = 708032613] Future Scheduled Test 2011-12-18 00:00:00 Screening for [facility] malignant neoplasm of cervix (procedure) [code = 445928835] Future Scheduled Test 2002 00:00:00 COVID-19 Vaccine (1) [facility] [code = COVID-19 Vaccine (1)] Encounters Start End Encounter Admission Attending Care Care Encounter Source Date/Time Date/Time Type Type Clinicians Facility Department ID 2020-11-25 2020-11-25 Emergency , [facility] [id number] 06:52:00 09:13:00 Jere Chisholm [id number] [place] [id number] [place] [id number] 2020-11-25 2020-11-25 Orders Doctor LONGO [id number] 00:00:00 00:00:00 Only Unassigned, FOUZIA [id number] [place] [facility] [id number] 2020-11-17 2020-11-17 Emergency Jones, [facility] [id number] 03:29:00 06:24:00 Olimpia Chisholm [id number] [place] [id number] [place] [id number] Results Test Description Test Time Test Comments Results Result Comments Source POC Glucose, Blood 2016-10-20 12:08:00 Test Item Value Reference Range Interpretation Comme nts POC Glucose (test code = POCGLUC) >600 mg/dL 70-115 HH Notify RN or HIV [id number] 14:54:00 Test Item Value Reference Range Interpretation Comments HIV 1/2 Antibody Non-Reactive Non-Reactive N HIV1/2 Anti body screen (test code = result indicate s the HIV1/2AB) absence of HIV1 and [id number].H owever, A Non-Reactive screen result does not [...] rule o ut exposure or infection.If ac [place] HIV-1 is suspec edith, HIV RNA Quantit ative is recommended. RPR, [id number] 11:34:00 Test Item Value Reference Range Interpretation Comments RPR (test code = RPR) Non-Reactive Non-Reactive N Thyroid Stimulating Hormone (TSH)2016-10-16 08:47:00 Test Item Value Reference Range Interpretation Comments TSH (test code = TSH) 0.85 mIU/mL 0.270-4.200 N BHCG, Serum, [id number] 08:32:00 Test Item Value Reference Range Interpretation Comments Preg Qual [Se] (test code = BSHCG) Negative Negative N CBC with [id number] 08:18:00 Test Item Value Reference Range Interpretation [...] code = ALYMPH) 3.0 K/cumm 0.5-4.6 N [place] Abs (test code = AMONO) 0.6 K/cumm 0.0-1.2 N Eos Abs (test code = AEOS) 0.04 K/cumm 0.00-0.74 N Baso Abs (test code = ABASO) 0.0 K/cumm 0.00-0.21 N
[2020-12-07 03:25] LABS: Urine Blood Trace-intact (Negative); Urine Glucose Negative (Negative); Urine Protein 1+ (Negative); Urine Specific Gravity >=1.030 (1.005-1.030); Urine pH 5.5 (5.0-7.0)
[2020-12-07 03:46] LABS: Absolute Lymphocytes (CBC) 2.1 K/uL (0.7-4.9); Basophils % 0.4 % (0-1.3); Hematocrit 42.7 % (36.0-45.0); Lymphocytes % 14.5 % (15.3-44.8); MPV 8.5 fL (7.6-11.3); RBC Red Blood Cell Count 5.28 M/uL (3.86-4.86)
[2020-12-07] MEDS ORDERED: ONDANSETRON 4 MG/2 ML VIAL ONE (03:50)
[2020-12-07] MEDS ORDERED: FAMOTIDINE 20 MG/2 ML VIAL IV ONE (03:51)
[2020-12-07] MEDS ORDERED: NA CHLORIDE 0.9% 1,000 ML ONE (03:51)
[2020-12-07 04:03] LABS: ALT/SGPT 20 U/L (12-78); AST/SGOT 14 U/L (15-37); Albumin 3.8 g/dL (3.4-5.0); Alkaline Phosphatase 60 U/L (45-117); BUN Blood Urea Nitrogen 9 mg/dL (7-18); Bicarbonate 23 mmol/L (21-32); Bilirubin Direct 0.2 mg/dL (0-0.2); Bilirubin Total 0.6 mg/dL (0.2-1.0); Glucose Level 112 mg/dL (74-106); Lipase 91 U/L (73-393); Potassium 3.3 mmol/L (3.5-5.1); Protein, Total 8.4 g/dL (6.4-8.2); Sodium Level 139 mmol/L (136-145)
--- NOTE | 2020-12-07 05:53 | ER ---
Nurse's Notes [facility] Name: Patrizia Young Age: 29 yrs Sex: Female : 1990 Arrival Date: 12/07/2020 Time: 03:02 Bed 18 Private MD: Diagnosis: Urinary tract infection, site not specified;Gastroenteritis Presentation: 12/07 03:13 Chief complaint: Patient states: I am having abdominal pain, nausea, vomiting diarrhea rr5 around 5-6x now started 7PM last night. Coronavirus screen: Client denies travel out of the [place] in the last 14 days. At this time, the client does not indicate any symptoms associated with coronavirus-19. Ebola Screen: Patient negative for fever greater than or equal to 101.5 degrees Fahrenheit, and additional compatible Ebola Virus Disease symptoms Patient denies exposure to infectious person. Patient denies travel to an Ebola-affected area in the 21 days before illness onset. Initial Sepsis Screen: Does the patient meet any 2 criteria? No. Patient's initial sepsis screen is negative. Does the patient have a suspected source of infection? No. Patient's initial sepsis screen is negative. Risk Assessment: Do you want to hurt yourself or someone else? Patient reports no desire to harm self or others. Onset of symptoms was December 06, 2020 at 19:00. 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 - Social history:: Smoking status: Patient reports the use of cigarette tobacco products, smokes one pack cigarettes per day. Patient uses street drugs, synthetic marijuana and xanax, Patient/guardian denies using alcohol. Screenin:17 Abuse screen: Denies threats or abuse. Denies injuries from another. Nutritional rr5 screening: No deficits noted. Tuberculosis screening: No symptoms or risk factors identified. Fall Risk IV access (20 points). Total Chahal Fall Scale indicates No Risk (0-24 pts). Assessment: 03:15 General: Appears in no apparent distress. uncomfortable, Behavior is calm, cooperative, rr5 appropriate for age. 03:15 Pain: Complains of pain in right upper quadrant Pain currently is 5 out of 10 on a pain rr5 scale. Quality of pain is described as aching, Pain began gradually, Is intermittent. Neuro: Level of Consciousness is awake, alert, obeys commands, Oriented to person, place, time. Cardiovascular: Capillary refill < 3 seconds Patient's skin is warm and dry. Respiratory: Airway is patent Respiratory effort is even, unlabored, Respiratory pattern is regular, symmetrical. GI: Abdomen is round non-distended, Reports upper abdominal pain, diarrhea, nausea, vomiting. : No signs and/or symptoms were reported regarding the genitourinary system. EENT: No signs and/or symptoms were reported regarding the EENT system. Derm: Skin temperature is warm. Musculoskeletal: Capillary refill < 3 seconds. 04:00 Reassessment: Patient appears in no apparent distress at this time. Patient is alert, rr5 oriented x 3, equal unlabored respirations, skin warm/dry/pink. Patient states symptoms have improved. 04:54 Reassessment: Patient appears in no apparent distress at this time. Patient is alert, rr5 oriented x 3, equal unlabored respirations, skin warm/dry/pink. Patient states feeling better. Patient states symptoms have improved. 06:00 Reassessment: Patient appears in no apparent distress at this time. Patient is alert, rr5 oriented x 3, equal unlabored respirations, skin warm/dry/pink. discharge instruction given and explained without complaints made Patient states feeling better. Patient states symptoms have improved. Vital Signs: 03:13 BP 139 / 68; Pulse 90; Resp 16; Temp 98.2; Pulse Ox 100% ; Weight 63.5 kg; Height 5 ft. rr5 4 in. (162.56 cm); Pain 5/10; 04:30 BP 126 / 74; Pulse 80; Resp 17; Pulse Ox 99% ; rr5 05:33 BP 135 / 89; Pulse 85; Resp 17; Pulse Ox 98% ; rr5 03:13 Body Mass Index 24.03 (63.50 kg, 162.56 cm) rr5 ED Course: 03:02 Patient arrived in ED. am4 03:04 Hero Dugan RN is Primary Nurse. rr5 03:08 Rafal Figueroa MD is Attending Physician. 7 03:15 Triage completed. rr5 03:17 Arm band placed on right wrist. rr5 03:20 Urine collected: clean catch specimen, cloudy. rr5 03:30 Patient has correct armband on for positive identification. Placed in gown. Bed in low rr5 position. Call light in reach. Pulse ox on. NIBP on. 03:35 Inserted saline lock: 20 gauge in left antecubital area, using aseptic technique. Blood rr5 collected. 05:34 No provider procedures requiring assistance completed. rr5 06:02 IV discontinued, intact, bleeding controlled, No redness/swelling at site. Pressure rr5 dressing applied. Administered Medications: 03:35 Drug: NS 0.9% 1000 ml Route: IV; Rate: 1 bolus; Site: right antecubital; rr5 04:23 Follow up: Response: No adverse reaction; IV Status: Completed infusion; IV Intake: rr5 1000ml 03:35 Drug: Zofran (Ondansetron) 4 mg Route: IVP; Site: right antecubital; rr5 04:23 Follow up: Response: No adverse reaction rr5 03:37 Drug: Pepcid (famotidine) 20 mg Route: IVP; Site: right antecubital; rr5 04:23 Follow up: Response: No adverse reaction rr5 Intake: 04:23 IV: 1000ml; Total: 1000ml. rr5 Outcome: 05:53 Discharge ordered by . 7 06:02 Discharged to home ambulatory. rr5 06:02 Condition: stable 06:02 Discharge instructions given to patient, Instructed on discharge instructions, follow up and referral plans. medication usage, Demonstrated understanding of instructions, follow-up care, medications, Prescriptions given X 3. 06:02 Patient left the ED. rr5 Signatures: Hero Dugan RN RN rr5 Rafal Figueroa MD MD 7 Erica Pierre am4
--- NOTE | 2020-12-07 05:53 | EDPHYS ---
Physician Documentation [facility] Name: Patrizia Young Age: 29 yrs Sex: Female : 1990 Arrival Date: 12/07/2020 Time: 03:02 Bed 18 Private MD: ED Physician Rafal Figueroa HPI: 12/07 05:24 This 29 yrs old Female presents to ER via Ambulatory with complaints of mh7 Nausea/Vomiting. 05:24 The patient presents to the emergency department with nausea, that is moderate, mh7 vomiting, that is intermittent, described as clear fluid. 05:26 Onset: The symptoms/episode began/occurred 3 day(s) ago. Possible causes: unknown. The mh7 symptoms are aggravated by nothing. The symptoms are alleviated by nothing. Associated signs and symptoms: Pertinent negatives: abdominal pain, anorexia, belching, constipation, dysuria, fever, flatulence, GI bleeding, hematuria, vaginal discharge. Severity of symptoms: At their worst the symptoms were. 05:34 Severity of symptoms: in the emergency department the symptoms are unchanged. The mh7 patient has experienced similar episodes in the past, a few times. The patient has been recently seen at the [facility] Emergency Department, this week. 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 - Social history:: Smoking status: Patient reports the use of cigarette tobacco products, smokes one pack cigarettes per day. Patient uses street drugs, synthetic marijuana and xanax, Patient/guardian denies using alcohol. ROS: 05:34 Constitutional: Negative for fever, chills, and weight loss, Eyes: Negative for injury, mh7 pain, redness, and discharge, ENT: Negative for injury, pain, and discharge, Neck: Negative for injury, pain, and swelling, Cardiovascular: Negative for chest pain, palpitations, and edema, Respiratory: Negative for shortness of breath, cough, wheezing, and pleuritic chest pain, Back: Negative for injury and pain, : Negative for injury, bleeding, discharge, and swelling, MS/Extremity: Negative for injury and deformity, Skin: Negative for injury, rash, and discoloration, Neuro: Negative for headache, weakness, numbness, tingling, and seizure, Psych: Negative for depression, anxiety, suicide ideation, homicidal ideation, and hallucinations, Allergy/Immunology: Negative for hives, rash, and allergies, Endocrine: Negative for neck swelling, polydipsia, polyuria, polyphagia, and marked weight changes, Hematologic/Lymphatic: Negative for swollen nodes, abnormal bleeding, and unusual bruising. Exam: 05:34 Constitutional: This is a well developed, well nourished patient who is awake, alert, mh7 and in no acute distress. Head/Face: Normocephalic, atraumatic. Eyes: Pupils equal round and reactive to light, extra-ocular motions intact. Lids and lashes normal. Conjunctiva and sclera are non-icteric and not injected. Cornea within normal limits. Periorbital areas with no swelling, redness, or edema. Neck: Trachea midline, no thyromegaly or masses palpated, and no cervical lymphadenopathy. Supple, full range of motion without nuchal rigidity, or vertebral point tenderness. No Meningismus. Chest/axilla: Normal chest wall appearance and motion. Nontender with no deformity. No lesions are appreciated. Cardiovascular: Regular rate and rhythm with a normal S1 and S2. No gallops, murmurs, or rubs. Normal PMI, no JVD. No pulse deficits. Respiratory: Lungs have equal breath sounds bilaterally, clear to auscultation and percussion. No rales, rhonchi or wheezes noted. No increased work of breathing, no retractions or nasal flaring. Abdomen/GI: Soft, non-tender, with normal bowel sounds. No distension or tympany. No guarding or rebound. No evidence of tenderness throughout. Back: No spinal tenderness. No costovertebral tenderness. Full range of motion. Skin: Warm, dry with normal turgor. Normal color with no rashes, no lesions, and no evidence of cellulitis. MS/ Extremity: Pulses equal, no cyanosis. Neurovascular intact. Full, normal range of motion. Neuro: Awake and alert, GCS 15, oriented to person, place, time, and situation. Cranial nerves II-XII grossly intact. Motor strength 5/5 in all extremities. Sensory grossly intact. Cerebellar exam normal. Normal gait. Psych: Awake, alert, with orientation to person, place and time. Behavior, mood, and affect are within normal limits. Vital Signs: 03:13 BP 139 / 68; Pulse 90; Resp 16; Temp 98.2; Pulse Ox 100% ; Weight 63.5 kg; Height 5 ft. rr5 4 in. (162.56 cm); Pain 5/10; 04:30 BP 126 / 74; Pulse 80; Resp 17; Pulse Ox 99% ; rr5 05:33 BP 135 / 89; Pulse 85; Resp 17; Pulse Ox 98% ; rr5 03:13 Body Mass Index 24.03 (63.50 kg, 162.56 cm) rr5 MDM: 05:51 Differential diagnosis: Nonspecific abd pain, gastritis, pancreatitis, viral mh7 gastroenteritis, gastroenteritis. Data reviewed: vital signs, nurses notes, lab test result(s), CBC, electrolytes, urinalysis. Data interpreted: Pulse oximetry: on room air is 98 %. Interpretation: normal. Counseling: I had a detailed discussion with the patient and/or guardian regarding: the historical points, exam findings, and any diagnostic results supporting the discharge/admit diagnosis, lab results, the need for outpatient follow up, to return to the emergency department if symptoms worsen or persist or if there are any questions or concerns that arise at home. Response to treatment: the patient's symptoms have resolved after treatment, the patient's blood pressure is in an acceptable range, mental status has returned to baseline, the patient no longer shows bradycardia, the patient is not short of breath, the patient is not tachycardic, the patient's pain is gone, the patient's temperature has normalized. 05:53 Patient medically screened. [facility] 12/07 03:24 Order name: Urine Dipstick-Ancillary; Complete Time: 04:41 EDMS 12/07 03:29 Order name: Basic Metabolic Panel; Complete Time: 04:41 rr5 12/07 03:29 Order name: CBC with Diff; Complete Time: 04:41 rr5 12/07 03:29 Order name: Hepatic Function; Complete Time: 04:41 rr5 12/07 03:29 Order name: Lipase; Complete Time: 04:41 rr5 12/07 03:29 Order name: IV Saline Lock; Complete Time: 03:46 rr5 12/07 03:29 Order name: Labs collected and sent; Complete Time: 03:46 rr5 12/07 03:46 Order name: Urine Test (obtain specimen); Complete Time: 03:46 rr5 12/07 03:46 Order name: Urine Dipstick-Ancillary (obtain specimen); Complete Time: 03:46 rr5 Administered Medications: 03:35 Drug: NS 0.9% 1000 ml Route: IV; Rate: 1 bolus; Site: right antecubital; rr5 04:23 Follow up: Response: No adverse reaction; IV Status: Completed infusion; IV Intake: rr5 1000ml 03:35 Drug: Zofran (Ondansetron) 4 mg Route: IVP; Site: right antecubital; rr5 04:23 Follow up: Response: No adverse reaction rr5 03:37 Drug: Pepcid (famotidine) 20 mg Route: IVP; Site: right antecubital; rr5 04:23 Follow up: Response: No adverse reaction rr5 Disposition: 12/07/20 05:53 Discharged to Home. Impression: Urinary tract infection, site not specified, Gastroenteritis. - Condition is Stable. - Discharge Instructions: Viral Gastroenteritis, Adult, Ihlc-ry-Fzqw, Urinary Tract Infection, Adult, Juof-qk-Ktnt. - Prescriptions for Zofran ODT 4 mg Oral tablet,disintegrating - place 1 tablet by TRANSLINGUAL route every 8 hours As needed; 6 tablet. Bentyl 20 mg Oral Tablet - take 1 tablet by ORAL route every 6 hours As needed; 20 tablet. Pepcid 20 mg Oral Tablet - take 1 tablet by ORAL route every 12 hours for 5 days; 10 tablet. - Work release form, Medication Reconciliation Form, Thank You Letter, Antibiotic Education, Prescription Opioid Use form. - Follow up: Private Physician; When: 1 - 2 days; Reason: Worsening of condition, Recheck today's complaints, Continuance of care, Re-evaluation by your physician. - Problem is an ongoing problem. - Symptoms have improved. Signatures: Dispatcher [facility] Center[facility] Urbano RN RN rr5 Rafal Figueroa MD MD mh7 Corrections: (The following items were deleted from the chart) 06:02 05:53 12/07/2020 05:53 Discharged to Home. Impression: Urinary tract infection, site rr5 not specified; Gastroenteritis. Condition is Stable. Forms are Medication Reconciliation Form, Thank You Letter, Antibiotic Education, Prescription Opioid Use. Follow up: Private Physician; When: 1 - 2 days; Reason: Worsening of condition, Recheck today's complaints, Continuance of care, Re-evaluation by your physician. Problem is an ongoing problem. Symptoms have improved. mh7
[2020-12-07 06:14] VITALS: TEMP 98.2
[2020-12-07 06:16] VITALS: BP 135/89; O2SAT 98
== END 2020-12-07 06:02 | disposition home or self-care (01) ==
LOC: ER 03:00
DX: N39.0 Urinary tract infection, site not specified (principal); K52.9 Noninfective gastroenteritis and colitis, unspecified; F31.9 Bipolar disorder, unspecified; F17.210 Nicotine dependence, cigarettes, uncomplicated; Z88.1 Allergy status to other antibiotic agents
CPT/HCPCS: 36415; 80048; 80076; 81003; 83690; 85025; 96361; 96374; 96375; 99284; J2405; J7030

== ENCOUNTER 2020-12-22 05:34 | Emergency (ER) | payer SELFPAY ==
--- OUTSIDE RECORDS SUMMARY | 2020-12-22 06:06 | XMS REPORT | Continuity of Care Document ---
:1990 Author Organization [facility] t Address [address] [place] [address] Care Team Providers Name Role Phone UNKNOWN Primary Care Physician Unavailable Singer OVIEDO Attending Clinician Doctor Unassigned, Name Attending Clinician Unavailable Dominga Goldman DO Attending Clinician Susie DACOSTA Attending Clinician Unavailable Susie DACOSTA Admitting Clinician Unavailable Problems Condition Condition Condition Status Onset Resolution Last Treating Co mments Source Name Details Category Date Date Treatment Clinician Date Suicidal Suicidal Disease Active [facility] s ideations ideations Heal th Panic Panic Disease Active [place] disorder disorder Health with with agoraphobi agoraphobi a a Severe Severe Disease Active [place] episode of episode of 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, disorder, 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 Anxiety Anxiety Disease Active [facility] Allergies, Adverse Reactions, Alerts Allergy Allergy Status Severity Reaction(s) Onset Inactive Treating Comm ents Source Name Type Date Date Clinician Amoxicil Propensi Active Rash 2015-06 [place] jeimy ty to 07-30 Health adverse 00:00: reaction 00 s to drug Social History Social Habit Start Date Stop Date Quantity Comments Source History of tobacco Cigarette Smoker [facility] use Sex Assigned At [place] He alth Cigarettes smoked 2016-05-29 2016-05-29 [facility] current (pack per 00:00:00 00:00:00 day) - Reported Alcohol intake 2016-05-29 2016-05-29 Current Nick Fields lt 00:00:00 00:00:00 non-drinker of alcohol (finding) Smoking Status Start Date Stop Date Source Current every day smoker 2016-05-29 00:00:00 [facility] Medications This patient has no known medications. Procedures This patient has no known procedures. Plan of Care Planned Activity Planned Date Details Comments Source Future Scheduled Test 2021-03-21 00:00:00 IMM Influenza [facility] Seasonal Mar to August (>/= 19 yrs) [code = IMM Influenza Seasonal Mar to August (>/= 19 yrs)] Future Scheduled Test 2020 00:00:00 Screening for [facility] malignant neoplasm of cervix (procedure) [code = 101274365] Future Scheduled Test 2020 00:00:00 Screening for [facility] malignant neoplasm of cervix (procedure) [code = 744670099] Future Scheduled Test 2002 00:00:00 COVID-19 Vaccine (1) [facility] [code = COVID-19 Vaccine (1)] Encounters Start End Encounter Admission Attending Care Care Encounter Source Date/Time Date/Time Type Type Clinicians Facility Department ID 2020-11-25 2020-11-25 Emergency , [facility] [id number] 06:52:00 09:13:00 Jere Chisholm [id number] [place] [id number] [place] [id number] 2020-11-25 2020-11-25 Orders Doctor QING [id number] 00:00:00 00:00:00 Only Unassigned, FOUZIA [id number] [place] [facility] [id number] 2020-11-17 2020-11-17 Emergency Jones, [facility] [id number] 03:29:00 06:24:00 Olimpia Chisholm [id number] [place] [id number] [place] [address] [id number] Results Test Description Test Time Test Comments Results Result Comments Source POC Glucose, Blood 2016-10-20 12:08:00 Test Item Value Reference Range Interpretation Comme nts POC Glucose (test code = POCGLUC) >600 mg/dL 70-115 Notify RN or HIV [id number] 14:54:00 Test Item Value Reference Range Interpretation Comments HIV 1/2 Antibody Non-Reactive Non-Reactive N HIV1/2 Anti body screen (test code = result indicate s the HIV1/2AB) absence of HIV1 and NLZ6mssgmexil.H owever, A Non-Reactive screen result does not [...] HIV RNA Quantit ative is recommended. RPR, [id number] 11:34:00 Test Item Value Reference Range Interpretation Comments RPR (test code = RPR) Non-Reactive Non-Reactive N Thyroid Stimulating Hormone (TSH)2016-10-16 08:47:00 Test Item Value Reference Range Interpretation Comments TSH (test code = TSH) 0.85 mIU/mL 0.270-4.200 N BHCG, Serum, [id number] 08:32:00 Test Item Value Reference Range Interpretation Comments Preg Qual [Se] (test code = BSHCG) Negative Negative N CBC with [id number] 08:18:00 Test Item Value Reference Range Interpretation [...] code = ALYMPH) 3.0 K/cumm 0.5-4.6 N [place] Abs (test code = AMONO) 0.6 K/cumm 0.0-1.2 N Eos Abs (test code = AEOS) 0.04 K/cumm 0.00-0.74 N Baso Abs (test code = ABASO) 0.0 K/cumm 0.00-0.21 N
[2020-12-22 07:04] LABS: Absolute Lymphocytes (CBC) 2.8 K/uL (0.7-4.9); Basophils % 0.5 % (0-1.3); Hematocrit 39.9 % (36.0-45.0); Lymphocytes % 18.7 % (15.3-44.8); MPV 8.4 fL (7.6-11.3); RBC Red Blood Cell Count 4.92 M/uL (3.86-4.86)
[2020-12-22 07:14] LABS: Protime INR 1.03
[2020-12-22] MEDS ORDERED: LORazepam 2 MG/ML VIAL ONE (07:23)
[2020-12-22] MEDS ORDERED: NA CHLORIDE 0.9% 1,000 ML ONE ×2 (07:24→08:16)
[2020-12-22 07:36] LABS: ALT/SGPT 22 U/L (12-78); AST/SGOT 14 U/L (15-37); Albumin 3.8 g/dL (3.4-5.0); Alkaline Phosphatase 66 U/L (45-117); BUN Blood Urea Nitrogen 8 mg/dL (7-18); Bicarbonate 22 mmol/L (21-32); Bilirubin Direct < 0.1 mg/dL (0-0.2); Bilirubin Total 0.2 mg/dL (0.2-1.0); Glucose Level 104 mg/dL (74-106); Potassium 3.5 mmol/L (3.5-5.1); Protein, Total 8.3 g/dL (6.4-8.2); Sodium Level 141 mmol/L (136-145)
--- NOTE | 2020-12-22 07:44 | EDPHYS ---
Physician Documentation [facility] Name: Patrizia Young Age: 30 yrs Sex: Female : 1990 Arrival Date: 12/22/2020 Time: 05:36 Bed 6 Private MD: ROBERT Physician Rajendra Stack HPI: 12/22 07:39 This 30 yrs old Female presents to ER via Ambulatory with complaints of alicia Anxiety. 07:39 The patient presents to the emergency department with anxiety, depression. Onset: The alicia symptoms/episode began/occurred 1 day(s) ago. Past psychiatric history: Prior diagnosis: bipolar disorder. The patient presents with abdominal pain in the upper abdomen. Onset: The symptoms/episode began/occurred 1 day(s) ago. The symptoms do not radiate. Associated signs and symptoms: The patient has no apparent associated signs or symptoms. Associated signs and symptoms: Pertinent positives: anxiety after drug use. The symptoms are described as crampy. Severity of pain: At its worst the pain was mild in the emergency department the pain is unchanged. 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 - Social history:: Smoking status: Patient reports the use of cigarette tobacco products, smokes one-half pack cigarettes per day. - Family history:: not pertinent. ROS: 07:39 Constitutional: Negative for fever, chills, and weight loss, Eyes: Negative for injury, alicia pain, redness, and discharge, ENT: Negative for injury, pain, and discharge, Neck: Negative for injury, pain, and swelling, Cardiovascular: Negative for chest pain, palpitations, and edema, Respiratory: Negative for shortness of breath, cough, wheezing, and pleuritic chest pain, Abdomen/GI: Negative for abdominal pain, nausea, vomiting, diarrhea, and constipation, Back: Negative for injury and pain, : Negative for injury, bleeding, discharge, and swelling, MS/Extremity: Negative for injury and deformity, Skin: Negative for injury, rash, and discoloration, Neuro: Negative for headache, weakness, numbness, tingling, and seizure, Psych: Negative for depression, anxiety, suicide ideation, homicidal ideation, and hallucinations, Allergy/Immunology: Negative for hives, rash, and allergies, Endocrine: Negative for neck swelling, polydipsia, polyuria, polyphagia, and marked weight changes, Hematologic/Lymphatic: Negative for swollen nodes, abnormal bleeding, and unusual bruising. Exam: 07:39 Constitutional: This is a well developed, well nourished patient who is awake, alert, alicia and in no acute distress. Head/Face: Normocephalic, atraumatic. Eyes: Pupils equal round and reactive to light, extra-ocular motions intact. Lids and lashes normal. Conjunctiva and sclera are non-icteric and not injected. Cornea within normal limits. Periorbital areas with no swelling, redness, or edema. ENT: Nares patent. No nasal discharge, no septal abnormalities noted. Tympanic membranes are normal and external auditory canals are clear. Oropharynx with no redness, swelling, or masses, exudates, or evidence of obstruction, uvula midline. Mucous membranes moist. Neck: Trachea midline, no thyromegaly or masses palpated, and no cervical lymphadenopathy. Supple, full range of motion without nuchal rigidity, or vertebral point tenderness. No Meningismus. Chest/axilla: Normal chest wall appearance and motion. Nontender with no deformity. No lesions are appreciated. Respiratory: Lungs have equal breath sounds bilaterally, clear to auscultation and percussion. No rales, rhonchi or wheezes noted. No increased work of breathing, no retractions or nasal flaring. Abdomen/GI: Soft, non-tender, with normal bowel sounds. No distension or tympany. No guarding or rebound. No evidence of tenderness throughout. Back: No spinal tenderness. No costovertebral tenderness. Full range of motion. Female : Normal external genitalia. Skin: Warm, dry with normal turgor. Normal color with no rashes, no lesions, and no evidence of cellulitis. MS/ Extremity: Pulses equal, no cyanosis. Neurovascular intact. Full, normal range of motion. Neuro: Awake and alert, GCS 15, oriented to person, place, time, and situation. Cranial nerves II-XII grossly intact. Motor strength 5/5 in all extremities. Sensory grossly intact. Cerebellar exam normal. Normal gait. Psych: Awake, alert, with orientation to person, place and time. Behavior, mood, and affect are within normal limits. 07:39 Cardiovascular: Rate: tachycardic, actual rate is 104 bpm, Rhythm: regular, Pulses: Pulses are 4+ in . Heart sounds: murmur, Edema: is not appreciated, JVD: is not appreciated. Vital Signs: 05:46 BP 155 / 109; Pulse 104; Resp 20; Temp 97.8; Pulse Ox 100% on R/A; Weight 63.5 kg; em Height 5 ft. 4 in. (162.56 cm); Pain 0/10; 08:35 BP 147 / 66; Pulse 100; Resp 17 S; Pulse Ox 100% on R/A; jd3 05:46 Body Mass Index 24.03 (63.50 kg, 162.56 cm) em MDM: 06:18 Patient medically screened. pkl 07:41 Differential diagnosis: drug withdrawal. acute psychotic break, depression, psychosis alicia secondary to non-compliance. Data reviewed: vital signs, nurses notes, lab test result(s). Data interpreted: reiki practitioner: rate is 104 beats/min, Pulse oximetry: is not applicable for this patient encounter. Test interpretation: by ED physician or midlevel provider:. Counseling: I had a detailed discussion with the patient and/or guardian regarding: the historical points, exam findings, and any diagnostic results supporting the discharge/admit diagnosis, the need for outpatient follow up, for definitive care, a family practitioner, a psychiatrist. 12/22 06:30 Order name: Acetaminophen; Complete Time: 07:38 pkl 12/22 06:30 Order name: Basic Metabolic Panel; Complete Time: 07:38 pkl 12/22 06:30 Order name: CBC with Diff; Complete Time: 07:37 pkl 12/22 06:30 Order name: ETOH Level; Complete Time: 07:37 pkl 12/22 06:30 Order name: Hepatic Function; Complete Time: 07:38 pkl 12/22 06:30 Order name: PT-INR; Complete Time: 08:24 pkl 12/22 06:30 Order name: Ptt, Activated; Complete Time: 08:24 pkl 12/22 06:30 Order name: Salicylate; Complete Time: 07:47 pkl 12/22 06:30 Order name: Urine Drug Screen pkl 12/22 07:48 Order name: Lipase alicia 12/22 07:49 Order name: Lipase; Complete Time: 08:25 EDMS 12/22 08:09 Order name: Urine Dipstick-Ancillary; Complete Time: 08:24 EDMS 12/22 08:12 Order name: Urine --Ancillary (enter results); Complete Time: 08:25 eb 12/22 08:25 Order name: Urine Culture [facility] 12/22 06:30 Order name: EKG; Complete Time: 06:31 pkl 12/22 06:30 Order name: EKG - Nurse/Tech; Complete Time: 07:07 pkl 12/22 06:30 Order name: IV Saline Lock; Complete Time: 07:07 pkl 12/22 06:30 Order name: Labs collected and sent; Complete Time: 07:07 pkl 12/22 06:30 Order name: Suicide Screening ([place]); Complete Time: 07:18 pkl 12/22 06:30 Order name: Urine Dipstick-Ancillary (obtain specimen); Complete Time: 08:15 pkl 12/22 07:39 Order name: Urine Test (obtain specimen); Complete Time: 08:14 [facility] 12/22 08:25 Order name: Urine Culture EDMS Administered Medications: 07:06 Drug: Ativan (LORazepam) 1 mg Route: IVP; Site: right wrist; bs2 08:00 Follow up: Response: No adverse reaction jd3 07:07 Drug: NS 0.9% 1000 ml Route: IV; Rate: 125 ml/hr; Site: right wrist; bs2 08:00 Follow up: Response: No adverse reaction; IV Status: Order to discontinue infusion jd3 08:14 Drug: NS 0.9% 1000 ml Route: IV; Rate: 1 bolus; Site: right wrist; tr6 09:00 Follow up: Response: No adverse reaction; IV Status: Completed infusion jd3 08:14 Drug: Pepcid (famotidine) 20 mg Route: IVP; Site: right wrist; tr6 09:00 Follow up: Response: No adverse reaction jd3 08:45 Drug: Bactrim (trimethoprim-sulfamethoxazole) (160 mg-800 mg (DS) 1 tablet Route: PO; tr6 09:00 Follow up: Response: No adverse reaction jd3 08:53 Not Given (Patient Refused): Zofran (Ondansetron) 4 mg IVP once; over 2 minutes tr6 Disposition Summary: 12/22/20 07:43 Discharge Ordered Location: Home [facility] Problem: new alicia Symptoms: have improved alicia Condition: Stable alicia Diagnosis - Anxiety disorder, unspecified alicia - Abuse of other non-psychoactive substances alicia - Adverse effect of amphetamines alicia - Acute gastritis alicia - UTI/ Urinary tract infection, site not specified alicia Followup: alicia - With: Private Physician - When: 2 - 3 days - Reason: Recheck today's complaints, Continuance of care, Re-evaluation by your physician Followup: alicia - With: Ivette Moore MD - When: 2 - 3 days - Reason: Recheck today's complaints, Re-evaluation by your physician Discharge Instructions: - Discharge Summary Sheet alicia - Panic Attack alicia - Substance Use Disorder alicia - Gastritis, Adult alicia - Gastritis, Adult, Ofjh-ri-Putm alicia - Urinary Tract Infection, Adult alicia - Urinary Tract Infection, Adult, Patx-fw-[id number] [facility] Forms: - Medication Reconciliation Form [facility] - Thank You Letter [facility] - Antibiotic Education alicia - Prescription Opioid Use [facility] - Work release form eb Prescriptions: - Hydroxyzine HCl 25 mg Oral Tablet - take 1 tablet by ORAL route every 6 hours As needed; 30 tablet; Refills: 0, [facility] Product Selection Permitted - Pepcid 20 mg Oral Tablet - take 1 tablet by ORAL route every 12 hours for 10 days; 20 tablet; Refills: 0, [facility] Product Selection Permitted - Zofran 4 mg Oral Tablet - take 1 tablet by ORAL route every 12 hours As needed; 20 tablet; Refills: 0, [facility] Product Selection Permitted - Bactrim DS 800-160 mg Oral Tablet - take 1 tablet by ORAL route every 12 hours for 7 days; 14 tablet; Refills: 0, [facility] Product Selection Permitted Signatures: Dispatcher [employer] Rajendra Bautista MD MD cha Lam, Pin, MD MD pkl Munoz, Edgar RN RN Nathalie Connors RN RN tr6 Luciana Tavares RN RN bs2 Salvador Jim RN jd3
--- NOTE | 2020-12-22 07:44 | ER ---
Nurse's Notes [facility] Name: Patrizia Young Age: 30 yrs Sex: Female : 1990 Arrival Date: 12/22/2020 Time: 05:36 Bed 6 Private MD: Diagnosis: Anxiety disorder, unspecified;Abuse of other non-psychoactive substances;Adverse effect of amphetamines;Acute gastritis;UTI/ Urinary tract infection, site not specified Presentation: 12/22 05:46 Chief complaint: Patient states: anxiety attack since 7PM last night, hx of anxiety, em denies SI/HI, just wants help. Coronavirus screen: Client denies travel out of the [place] in the last 14 days. Ebola Screen: Patient negative for fever greater than or equal to 101.5 degrees Fahrenheit, and additional compatible Ebola Virus Disease symptoms Patient denies exposure to infectious person. Patient denies travel to an Ebola-affected area in the 21 days before illness onset. No symptoms or risks identified at this time. Initial Sepsis Screen: Does the patient meet any 2 criteria? HR > 90 bpm. No. Patient's initial sepsis screen is negative. Does the patient have a suspected source of infection? No. Patient's initial sepsis screen is negative. Risk Assessment: Do you want to hurt yourself or someone else? Patient reports no desire to harm self or others. Onset of symptoms was December 22, 2020. 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 - Social history:: Smoking status: Patient reports the use of cigarette tobacco products, smokes one-half pack cigarettes per day. - Family history:: not pertinent. Screenin:36 Abuse screen: Denies threats or abuse. Nutritional screening: No deficits noted. jd3 Tuberculosis screening: No symptoms or risk factors identified. Fall Risk Ambulatory Aid- None/Bed Rest/Nurse Assist (0 pts). Gait- Normal/Bed Rest/Wheelchair (0 pts) Mental Status- Oriented to own ability (0 pts). Total Chahal Fall Scale indicates No Risk (0-24 pts). Assessment: 07:50 Reassessment: Patient states feeling better. General: Appears in no apparent distress. jd3 comfortable, Behavior is calm, cooperative, appropriate for age. Pain: Denies pain. Neuro: Level of Consciousness is awake, alert, obeys commands, Oriented to person, place, time, situation. Cardiovascular: Denies chest pain, Capillary refill < 3 seconds Patient's skin is warm and dry. Respiratory: Airway is patent Respiratory effort is even, unlabored, Respiratory pattern is regular, symmetrical. GI: No signs and/or symptoms were reported involving the gastrointestinal system. : No signs and/or symptoms were reported regarding the genitourinary system. EENT: No signs and/or symptoms were reported regarding the EENT system. Derm: Skin is intact, Skin is dry, Skin is normal, Skin temperature is warm. Musculoskeletal: Circulation, motion, and sensation intact. Range of motion: intact in all extremities. 08:35 Reassessment: Patient appears in no apparent distress at this time. No changes from jd3 previously documented assessment. Patient and/or family updated on plan of care and expected duration. Pain level reassessed. Patient is alert, oriented x 3, equal unlabored respirations, skin warm/dry/pink. Vital Signs: 05:46 BP 155 / 109; Pulse 104; Resp 20; Temp 97.8; Pulse Ox 100% on R/A; Weight 63.5 kg; em Height 5 ft. 4 in. (162.56 cm); Pain 0/10; 08:35 BP 147 / 66; Pulse 100; Resp 17 S; Pulse Ox 100% on R/A; jd3 05:46 Body Mass Index 24.03 (63.50 kg, 162.56 cm) em ED Course: 05:36 Patient arrived in ED. ag3 05:46 Arm band placed on. em 05:49 Triage completed. em 06:18 Sabas Mo MD is Attending Physician. pkl 07:07 Acetaminophen Sent. bs2 07:07 Basic Metabolic Panel Sent. bs2 07:07 CBC with Diff Sent. bs2 07:07 ETOH Level Sent. bs2 07:07 Hepatic Function Sent. bs2 07:07 PT-INR Sent. bs2 07:07 Ptt, Activated Sent. bs2 07:07 Salicylate Sent. bs2 07:19 Attending Physician role handed off by Sabas Mo MD alicia 07:19 Rajendra Stack MD is Attending Physician. alicia 07:45 Ivette Moore MD is Referral Physician. alicia 07:53 Salvador Jim, ALEJANDRINA is Primary Nurse. jd3 08:36 Patient has correct armband on for positive identification. Bed in low position. Call jd3 light in reach. Side rails up X 1. Pulse ox on. NIBP on. 08:59 No provider procedures requiring assistance completed. IV discontinued, intact, tr6 bleeding controlled, No redness/swelling at site. Pressure dressing applied. Administered Medications: 07:06 Drug: Ativan (LORazepam) 1 mg Route: IVP; Site: right wrist; bs2 08:00 Follow up: Response: No adverse reaction jd3 07:07 Drug: NS 0.9% 1000 ml Route: IV; Rate: 125 ml/hr; Site: right wrist; bs2 08:00 Follow up: Response: No adverse reaction; IV Status: Order to discontinue infusion jd3 08:14 Drug: NS 0.9% 1000 ml Route: IV; Rate: 1 bolus; Site: right wrist; tr6 09:00 Follow up: Response: No adverse reaction; IV Status: Completed infusion jd3 08:14 Drug: Pepcid (famotidine) 20 mg Route: IVP; Site: right wrist; tr6 09:00 Follow up: Response: No adverse reaction jd3 08:45 Drug: Bactrim (trimethoprim-sulfamethoxazole) (160 mg-800 mg (DS) 1 tablet Route: PO; tr6 09:00 Follow up: Response: No adverse reaction jd3 08:53 Not Given (Patient Refused): Zofran (Ondansetron) 4 mg IVP once; over 2 minutes tr6 Outcome: 07:43 Discharge ordered by . alicia 08:59 Patient left the ED. ll1 09:00 Discharged to home ambulatory, with family. jd3 09:00 Condition: stable 09:00 Discharge instructions given to patient, Instructed on discharge instructions, follow up and referral plans. medication usage, Demonstrated understanding of instructions, follow-up care, medications, Prescriptions given X 4. Addendum: 12/26/2020 16:25 Addendum: Culture Results: Positive urine culture. No further action required. Bacteria s v sensitive to prescribed antibiotic. Signatures: Brenda Bobby, RN Rajendra Cat MD MD cha Lam, Pin, MD MD pkl Munoz, Edgar RN RN Salvador Yanez RN RN jd3 Linda Beebe3 Osmar Cherry RN RN ll1 Nathalie Sánchez RN RN tr6 Luciana Tavares RN RN bs2 Corrections: (The following items were deleted from the chart) 12/22 05:49 05:46 EKG completed in triage. Results shown to MD. davis em 16:24 09:00 Discharge instructions given to patient, Instructed on discharge instructions, jd3 follow up and referral plans. Demonstrated understanding of instructions, follow-up care, jd3
[2020-12-22 08:09] LABS: Urine Blood Negative (Negative); Urine Glucose Negative (Negative); Urine Protein Trace (Negative); Urine Specific Gravity 1.025 (1.005-1.030); Urine pH 6.5 (5.0-7.0)
[2020-12-22 08:15] LABS: Urine Specific Gravity/Preg 1.025 (1.005-1.030)
[2020-12-22] MEDS ORDERED: FAMOTIDINE 20 MG/2 ML VIAL IV ONE (08:16)
[2020-12-22] MEDS ORDERED: SMZ./TMP. 800/160 MG TABLET ONE (09:05)
[2020-12-22 09:07] VITALS: TEMP 97.8; O2SAT 100
[2020-12-22 09:10] VITALS: BP 147/66
[2020-12-22 09:34] LABS: Barbiturates NEGATIVE (NEGATIVE); Benzodiazepines POSITIVE (NEGATIVE); Cocaine POSITIVE (NEGATIVE); METHAMPHETAM POSITIVE (NEGATIVE); Methadone NEGATIVE (NEGATIVE); Opiates NEGATIVE (NEGATIVE); Phencyclidine NEGATIVE (NEGATIVE); THC Cannibis POSITIVE (NEGATIVE)
--- NOTE | 2020-12-23 10:32 | EKG ---
Test Date: 2020-12-22 Test Time: 06:53:55 Information Clerk Cashier: MARGARITA MEASUREMENT RESULTS: Intervals: Rate: 74 GA: 142 QRSD: 76 QT: 428 QTc: 475 Evans: P: -16 GA: 142 QRS: 66 T: 56 INTERPRETIVE STATEMENTS: Normal sinus rhythm Normal ECG Compared to ECG 12/03/2020 10:50:47 No significant changes Electronically Signed On 12-23-20 10:30:18 CDT by Teddy Huber
== END 2020-12-22 08:59 | disposition home or self-care (01) ==
LOC: ER 05:34
DX: F55.8 Abuse of other non-psychoactive substances (principal); T43.625A Adverse effect of amphetamines, initial encounter; K29.00 Acute gastritis without bleeding; N39.0 Urinary tract infection, site not specified; F17.210 Nicotine dependence, cigarettes, uncomplicated; Z88.1 Allergy status to other antibiotic agents
CPT/HCPCS: 36415; 80048; 80076; 80307; 80320; 80329; 81003; 81025; 83690; 85025; 85610; 85730; 87077; 87086; 87088; 87186; 93005; 96361; 96374; 96375; 99284; J7030

== ENCOUNTER 2021-02-04 15:47 | Emergency (ER) | payer SELFPAY ==
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
[2021-02-04 17:38] LABS: Absolute Lymphocytes (CBC) 3.2 K/uL (0.7-4.9); Basophils % 0.6 % (0-1.3); Hematocrit 43.1 % (36.0-45.0); Lymphocytes % 22.4 % (15.3-44.8); MPV 8.2 fL (7.6-11.3); RBC Red Blood Cell Count 5.17 M/uL (3.86-4.86)
[2021-02-04 17:41] LABS: Protime INR 1.04
[2021-02-04 17:59] LABS: ALT/SGPT 25 U/L (12-78); AST/SGOT 16 U/L (15-37); Alkaline Phosphatase 64 U/L (45-117); BUN Blood Urea Nitrogen 8 mg/dL (7-18); Bicarbonate 23 mmol/L (21-32); Bilirubin Direct 0.1 mg/dL (0-0.2); Bilirubin Total 0.3 mg/dL (0.2-1.0); Glucose Level 93 mg/dL (74-106); Potassium 3.7 mmol/L (3.5-5.1); Protein, Total 9.3 g/dL (6.4-8.2); Sodium Level 142 mmol/L (136-145)
[2021-02-04] MEDS ORDERED: ZIPRASIDONE MESYLA 20 MG/VIAL IM ONE (18:08)
[2021-02-04] MEDS ORDERED: WATER FOR INJ,STERILE 10 ML ONE (18:09)
[2021-02-04 18:47] LABS: Urine Blood Negative (Negative); Urine Glucose Negative (Negative); Urine Protein Negative (Negative); Urine Specific Gravity 1.025 (1.005-1.030); Urine pH 7.5 (5.0-7.0)
[2021-02-04 19:12] LABS: Barbiturates NEGATIVE (NEGATIVE); Benzodiazepines NEGATIVE (NEGATIVE); Cocaine NEGATIVE (NEGATIVE); METHAMPHETAM NEGATIVE (NEGATIVE); Methadone NEGATIVE (NEGATIVE); Opiates NEGATIVE (NEGATIVE); Phencyclidine NEGATIVE (NEGATIVE); THC Cannibis POSITIVE (NEGATIVE)
--- NOTE | 2021-02-04 20:27 | ER ---
Nurse's Notes [facility] Name: Patrizia Young Age: 30 yrs Sex: Female : 1990 Arrival Date: 02/04/2021 Time: 16:27 Bed 25 Private MD: Diagnosis: Bipolar disorder, unspecified;Suicidal ideations Presentation: 02/04 16:32 Chief complaint: EMS states: pt stated that she wants to end it, previous hx of iw suicidal ideation, no attempt, states she wants to go back to [facility]. 16:32 Method Of Arrival: EMS: [facility] iw 16:49 Acuity: GLADYS 2 iw 17:37 Coronavirus screen: At this time, the client does not indicate any symptoms associated ap3 with coronavirus-19. Ebola Screen: No symptoms or risks identified at this time. Initial Sepsis Screen: Does the patient meet any 2 criteria? No. Patient's initial sepsis screen is negative. Does the patient have a suspected source of infection? No. Patient's initial sepsis screen is negative. Risk Assessment: Do you want to hurt yourself or someone else? Patient reports desire/thoughts of hurting themselves or someone else. Provider notified. 17:39 Onset of symptoms was February 04, 2021. 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 - Social history:: Smoking status: Patient reports the use of cigarette tobacco products. - Code Status:: Full code. Screenin:34 Abuse screen: Denies threats or abuse. Nutritional screening: No deficits noted. ap3 Tuberculosis screening: No symptoms or risk factors identified. Fall Risk None identified. Assessment: 17:33 Reassessment: Patient has hx of multiple suicide attempts. General: Appears distressed, ap3 Behavior is anxious, crying. General: is physically shaking stating she doesn't want to be here anymore. . Pain: Denies pain. Neuro: Level of Consciousness is awake, alert, obeys commands, Oriented to person, place, time, situation, Insole Tacker are equal bilaterally Moves all extremities. Gait is steady, Speech is normal. Cardiovascular: Denies chest pain, shortness of breath. Respiratory: Airway is patent Respiratory effort is even, Respiratory pattern is regular. GI: No signs and/or symptoms were reported involving the gastrointestinal system. : No signs and/or symptoms were reported regarding the genitourinary system. EENT: No signs and/or symptoms were reported regarding the EENT system. Derm: No signs and/or symptoms reported regarding the dermatologic system. Musculoskeletal: No signs and/or symptoms reported regarding the musculoskeletal system. Injury Description:. 18:31 Reassessment:. General: Behavior is cooperative, anxious. ap3 21:14 Reassessment: Patient appears in no apparent distress at this time. Patient and/or ld1 family updated on plan of care and expected duration. Pain level reassessed. Patient is alert, oriented x 3, equal unlabored respirations, skin warm/dry/pink. Pt laying in bed resting. ERP at bedside discussing POC. Psych: 17:35 [place] Suicide Severity Screening: In the past month, have you wished you were ap3 or wished you could go to sleep and not wake up? Patient responds "yes." Based off the client's responses additional C-SSRS screening is required. "In the past month, have you actually had any thoughts of killing yourself?" Patient responds "yes." Based off the client's response additional [place] suicide severity screening questions to be further documented on paper forms. "In your lifetime, have you ever done anything, started to do anything, or prepared to do anything to end your life?" Patient responds "yes." Patient reports suicidal intent within 3 past months. Subjective: Patient's mood is sad, hopeless, Hallucinations are auditory, Having thoughts of suicide. Plan for suicide is to hang herself. Objective: Patient is cooperative, guarded, using poor eye contact, restless, suspicious, Speech is normal. Interventions: Removed personal items and placed in bag. Patient placed in hospital gown. Searched person for dangerous items. Belonging list filled out. Safety Checks: Personal items have been removed. Door is open. Patient uses Patient uses benzodiazepines Patient uses cocaine, Last use was 8 days ago. patient currently in rehab. Patient uses marijuana. Commitment: Patient will be a voluntary commitment. Vital Signs: 17:37 BP 138 / 93; Pulse 83; Resp 25; Temp 98.3(O); Pulse Ox 100% on R/A; ap3 21:14 BP 135 / 86; Pulse 80; Resp 24; Pulse Ox 100% on R/A; ld1 ED Course: 16:27 Patient arrived in ED. iw 16:42 Danielle Blanco is Attending Physician. sp3 16:42 Nilda Hurd, RN is Primary Nurse. ap3 16:49 Triage completed. iw 17:25 Inserted saline lock: 20 gauge in left antecubital area, using aseptic technique. Blood dh4 collected. 17:35 Arm band placed on right wrist. EKG done per protocol. Performed by ED Staff. Shown to ap3 ED physician. 17:39 Patient has correct armband on for positive identification. Placed in gown. Bed in low ap3 position. Side rails up X2. Lights dimmed. Verbal reassurance given. Patient is placed in psych hold. 19:18 Primary Nurse role handed off by Nilda Hurd RN mw2 20:14 Attending Physician role handed off by Danielle Blanco alicia 20:14 Rajendra Stack MD is Attending Physician. alicia 20:27 Dougie Wyatt MD is Referral Physician. [facility] 21:13 Jen Marsh, ALEJANDRINA is Primary Nurse. ld1 21:15 No provider procedures requiring assistance completed. IV discontinued, intact, ld1 bleeding controlled, No redness/swelling at site. Administered Medications: 18:02 Drug: Geodon (ziprasidone) 20 mg Route: IM; Site: left gluteus; ap3 Outcome: 20:27 Discharge ordered by . alicai 21:15 Discharged to home ambulatory. ld1 21:15 Condition: stable 21:15 Discharge instructions given to patient, Instructed on discharge instructions, follow up and referral plans. Demonstrated understanding of instructions, follow-up care. 21:15 Patient left the ED. ld1 Signatures: Rajendra Stack MD MD cha Williams, Irene RN RN Nilda Hurd RN RN ap3 Sawyer Casey mw2 Simone Snow 4 Jen Marsh RN RN ld1 Danielle Blanco sp3
--- NOTE | 2021-02-04 20:28 | EDPHYS ---
Physician Documentation [facility] Name: Patrizia Young Age: 30 yrs Sex: Female : 1990 Arrival Date: 02/04/2021 Time: 16:27 Bed 25 Private MD: ROBERT Physician Rajendra Stack HPI: 02/04 17:57 This 30 yrs old Female presents to ER via EMS with complaints of Suicidal sp3 Ideation. 17:57 30-year-old female with a longstanding history of bipolar disease, polysubstance abuse, sp3 anxiety, prior suicide attempts, presents to the ED for suicidal ideation for approximately 1 day. Patient was at local rehab facility where during the residential phase of that rehabilitation patient had an episode of anxiety and hallucinations where the staff had to activate EMS to bring her to the emergency department for active treatment. Patient states that she is actively hearing voices with auditory hallucinations when she is alone" soon as doctors leave the room". Patient also states that she is severely depressed and has a plan to hang herself she has done in the past. Patient has not had any substances for at least 8 days. Her past substances included cocaine, Xanax, methamphetamine, synthetics, marijuana, among others. Patient denies any aspirin or Tylenol ingestion.. 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 - Social history:: Smoking status: Patient reports the use of cigarette tobacco products. - Code Status:: Full code. ROS: 18:00 Eyes: Negative for injury, pain, redness, and discharge, ENT: Negative for injury, sp3 pain, and discharge, Neck: Negative for injury, pain, and swelling, Cardiovascular: Negative for chest pain, palpitations, and edema, Respiratory: Negative for shortness of breath, cough, wheezing, and pleuritic chest pain, Abdomen/GI: Negative for abdominal pain, nausea, vomiting, diarrhea, and constipation, MS/Extremity: Negative for injury and deformity, Skin: Negative for injury, rash, and discoloration, Neuro: Negative for headache, weakness, numbness, tingling, and seizure, Allergy/Immunology: Negative for hives, rash, and allergies. 18:00 Constitutional: Positive for poor PO intake. 18:00 Psych: Positive for anxiety, depression, auditory hallucinations, suicidal ideation. Exam: 18:00 ENT: Nares patent. No nasal discharge, no septal abnormalities noted. External sp3 auditory canals are clear. Oropharynx with no redness, swelling, or masses, exudates, or evidence of obstruction, uvula midline. Mucous membranes moist. Neck: Trachea midline, no thyromegaly or masses palpated, and no cervical lymphadenopathy. Supple, full range of motion without nuchal rigidity, or vertebral point tenderness. No Meningismus. Chest/axilla: Normal chest wall appearance and motion. Nontender with no deformity. No lesions are appreciated. Cardiovascular: Regular rate and rhythm with a normal S1 and S2. No gallops, murmurs, or rubs. Normal PMI, no JVD. No pulse deficits. Respiratory: Lungs have equal breath sounds bilaterally, clear to auscultation and percussion. No rales, rhonchi or wheezes noted. No increased work of breathing, no retractions or nasal flaring. Abdomen/GI: Soft, non-tender, with normal bowel sounds. No distension or tympany. No guarding or rebound. No evidence of tenderness throughout. Back: No spinal tenderness. No costovertebral tenderness. Full range of motion. Skin: Warm, dry with normal turgor. Normal color with no rashes, no lesions, and no evidence of cellulitis. Neuro: Awake and alert, GCS 15, oriented to person, place, time, and situation. Cranial nerves II-XII grossly intact. Motor strength 5/5 in all extremities. Sensory grossly intact. Cerebellar exam normal. Normal gait. 18:00 Constitutional: The patient appears anxious, restless, unkempt. 18:00 Psych: Behavior/mood is anxious, suicidal, depressed, Affect is animated, Oriented to person, place, time, only. Patient having thoughts of suicide. Plan for suicide is Hanging. Judgement / Insight is impaired. Memory is normal. Delusions/hallucinations are present and described as Patient has auditory hallucinations with "people making fun of her and they are not".. 20:14 ECG was reviewed by the Attending Physician. [facility] Vital Signs: 17:37 BP 138 / 93; Pulse 83; Resp 25; Temp 98.3(O); Pulse Ox 100% on R/A; ap3 21:14 BP 135 / 86; Pulse 80; Resp 24; Pulse Ox 100% on R/A; ld1 MDM: 17:02 Patient medically screened. sp3 18:02 ED course: Patient is actively suicidal and hallucinogenic with a severely anxious sp3 state. QTc is normal and therefore we will give 20 mg of Geodon IM to attempt to treat symptoms. Patient will likely be signed out to subsequent ED physicians for eventual bed placement and/or final disposition. Patient knows that she will be in the ED for an extended amount of time and has no further questions regarding treatment plan. Psych clearance labs are all pending.. 18:09 Test interpretation: by ED physician or midlevel provider: ECG, EKG demonstrates normal sp3 sinus rhythm at 67 bpm with normal intervals, normal axis, normal QRS, normal ST/T-segment's.. 20:15 Differential diagnosis: drug withdrawal. acute psychotic break, depression. Data [facility] reviewed: vital signs, nurses notes, lab test result(s), EKG, radiologic studies. Data interpreted: front desk monitor: rate is 83 beats/min, rhythm is regular. Counseling: I had a detailed discussion with the patient and/or guardian regarding: the historical points, exam findings, and any diagnostic results supporting the discharge/admit diagnosis, lab results, the need for outpatient follow up, for definitive care, a psychiatrist. 02/04 17:03 Order name: Acetaminophen [facility] 02/04 17:03 Order name: Basic Metabolic Panel 3 02/04 17:03 Order name: CBC with Diff 3 02/04 17:03 Order name: ETOH Level 3 02/04 17:03 Order name: Hepatic Function 3 02/04 17:03 Order name: PT-INR; Complete Time: 18:45 3 02/04 17:03 Order name: Ptt, Activated; Complete Time: 18:45 3 02/04 17:03 Order name: Salicylate; Complete Time: 18:45 3 02/04 17:03 Order name: Urine Drug Screen; Complete Time: 20:16 3 02/04 17:03 Order name: Acetaminophen Level; Complete Time: 18:45 EDMS 02/04 17:03 Order name: Basic Metabolic Panel; Complete Time: 18:45 EDMS 02/04 17:03 Order name: CBC with Automated Diff; Complete Time: 18:45 EDMS 02/04 17:03 Order name: Alcohol Serum/Plasma; Complete Time: 18:45 EDMS 02/04 17:03 Order name: Liver (Hepatic) Function; Complete Time: 18:45 EDMS 02/04 17:03 Order name: EKG; Complete Time: 17:03 sp3 02/04 17:03 Order name: EKG - Nurse/Tech; Complete Time: 17:41 sp3 02/04 17:03 Order name: IV Saline Lock; Complete Time: 17:25 sp3 02/04 17:03 Order name: Labs collected and sent; Complete Time: 17:25 sp3 02/04 17:03 Order name: Suicide Screening ([place]); Complete Time: 17:25 sp3 02/04 17:03 Order name: Urine Dipstick-Ancillary (obtain specimen); Complete Time: 18:47 sp3 02/04 18:09 Order name: Urine Test (obtain specimen); Complete Time: 18:46 sp3 02/04 18:47 Order name: Urine Dipstick-Ancillary; Complete Time: 20:16 EDMS 02/04 18:47 Order name: Urine --Ancillary (enter results) bd 02/04 20:15 Order name: SARS-COV-2 RT PCR; Complete Time: 20:16 EDMS EC:14 Rate is 67 beats/min. Rhythm is regular. QRS [place] is Normal. CT interval is normal. QRS alicia interval is normal. QT interval is normal. No Q waves. T waves are Normal. No ST changes noted. Clinical impression: Normal ECG and No evidence of ischemia. Interpreted by me. Reviewed by me. Administered Medications: 18:02 Drug: Geodon (ziprasidone) 20 mg Route: IM; Site: left gluteus; ap3 Disposition Summary: 02/04/21 20:27 Discharge Ordered Location: Home alicia Problem: new alicia Symptoms: have improved alicia Condition: Stable alicia Diagnosis - Bipolar disorder, unspecified alicia - Suicidal ideations alicia Followup: alicia - With: Private Physician - When: Tomorrow - Reason: Recheck today's complaints, Continuance of care, Re-evaluation by your physician Followup: alicia - With: Dougie Wyatt MD - When: 2 - 3 days - Reason: Recheck today's complaints, Re-evaluation by your physician Discharge Instructions: - Discharge Summary Sheet alicia - Suicidal Feelings: How to Help Yourself alicia - Stress, Adult alicia - Managing Bipolar Disorder alicia - Mixed Bipolar Disorder alicia Forms: - Medication Reconciliation Form alicia - Thank You Letter alicia - Antibiotic Education alicia - Prescription Opioid Use alicia Signatures: Dispatcher [employer] EDMS Rajendra Stack MD MD cha Prokisch, Amanda, RN RN ap3 Danielle Blanco sp3 Corrections: (The following items were deleted from the chart) 18:47 18:11 CORONAVIRUS+MR.LAB.BRZ ordered. EDNC EDMS
[2021-02-04 21:27] VITALS: TEMP 98.3; O2SAT 100
[2021-02-04 21:32] VITALS: BP 135/86
[2021-02-04 23:44] LABS: Urine Specific Gravity/Preg 1.025 (1.005-1.030)
--- NOTE | 2021-02-05 16:27 | EKG ---
Test Date: 2021-02-04 Test Time: 17:37:59 Shape Hand: BONIFACIO MEASUREMENT RESULTS: Intervals: Rate: 67 ND: 132 QRSD: 78 QT: 412 QTc: 435 [place]: P: 3 ND: 132 QRS: 44 T: 37 INTERPRETIVE STATEMENTS: Normal sinus rhythm Normal ECG Compared to ECG 12/22/2020 06:53:55 No significant changes Electronically Signed On 02-05-21 16:24:06 CDT by Teddy Huber
== END 2021-02-04 21:15 | disposition home or self-care (01) ==
LOC: ER 15:47
DX: F31.9 Bipolar disorder, unspecified (principal); F17.210 Nicotine dependence, cigarettes, uncomplicated; Z88.1 Allergy status to other antibiotic agents; Z20.822 Contact with and (suspected) exposure to COVID-19
CPT/HCPCS: 36415; 80048; 80076; 80307; 80320; 80329; 81003; 81025; 85025; 85610; 85730; 93005; 96372; 99285; J3486; U0003

== ENCOUNTER 2022-05-18 20:28 | Emergency (ER) | payer SELFPAY ==
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
[2022-05-18] MEDS ORDERED: FAMOTIDINE 20 MG/2 ML VIAL IV ONE (21:24)
[2022-05-18] MEDS ORDERED: ONDANSETRON 4 MG/2 ML VIAL ONE (21:24)
[2022-05-18] MEDS ORDERED: NA CHLORIDE 0.9% 1,000 ML ONE (21:24)
[2022-05-18 21:41] LABS: Urine Blood Negative (Negative); Urine Glucose Negative (Negative); Urine Protein 2+ (Negative); Urine Specific Gravity 1.015 (1.005-1.030); Urine pH >=9.0 (5.0-7.0)
[2022-05-18 22:00] LABS: Absolute Lymphocytes (CBC) 2.2 K/uL (0.7-4.9); Hematocrit 38.7 % (36.0-45.0); Lymphocytes % 18.7 % (15.3-44.8); MCV 84.6 fL (80-100); MPV 8.1 fL (7.6-11.3); RBC Red Blood Cell Count 4.58 M/uL (3.86-4.86)
--- NOTE | 2022-05-18 22:20 | RAD REPORT ---
EXAM DESCRIPTION: RAD - Chest Single View - 05/18/2022 10:07 pm CLINICAL HISTORY: vomiting COMPARISON: Chest Single View dated 02/04/2016; CHEST PA AND LAT 2 VIEW dated 08/24/2015; CHEST SINGLE VIEW dated 07/19/2015 FINDINGS: Lines: None. Lungs: No evidence of edema or pneumonia. Pleural: No significant pleural effusions or pneumothorax. Cardiac: The heart size is within normal limits. Mediastinum: Right lower peritracheal and left hilar lymphadenopathy. Bones: No acute fractures. Other: None IMPRESSION: Findings concerning for mediastinal and hilar lymphadenopathy. CT could confirm. This co uld be related to infectious, inflammatory, and neoplastic etiologies.
[2022-05-18 22:27] LABS: Barbiturates NEGATIVE (NEGATIVE); Benzodiazepines POSITIVE (NEGATIVE); Cocaine POSITIVE (NEGATIVE); METHAMPHETAM NEGATIVE (NEGATIVE); Methadone NEGATIVE (NEGATIVE); Opiates NEGATIVE (NEGATIVE); Phencyclidine NEGATIVE (NEGATIVE); THC Cannibis NEGATIVE (NEGATIVE)
[2022-05-18 22:27] LABS: Albumin 3.4 g/dL (3.4-5.0); Bilirubin Total 0.4 mg/dL (0.2-1.0); Protein, Total 8.5 g/dL (6.4-8.2)
[2022-05-18 22:28] LABS: Potassium 3.8 mmol/L (3.5-5.1)
[2022-05-18 22:50] LABS: Urine Specific Gravity/Preg 1.015 (1.005-1.030)
--- NOTE | 2022-05-18 23:01 | RAD REPORT ---
EXAM DESCRIPTION: CTAbdomen Pelvis W Contrast - 05/18/2022 10:55 pm CLINICAL HISTORY: abdominal pain, vomiting COMPARISON: Abdomen Pelvis W Contrast dated 11/24/2020; Abdomen Pelvis W Contrast dated 10/28/2020; Abdomen Pelvis W Contrast dated 02/04/2016 TECHNIQUE: CT of the abdomen and pelvis was performed with IV contrast. All CT scans are performed using dose optimization technique as appropriate and may include automated exposure control or mA/KV adjustment according to patient size. FINDINGS: Lower chest: No acute abnormality. Mild circumferential thickened distal esophagus which m ay reflect esophagitis. Liver: No acute abnormality or suspicious lesions. Biliary: No biliary ductal dilatation. Stomach: No significant focal abnormality. Duodenum: No significant focal abnormality. Pancreas: No significant abnormality. Spleen: No significant abnormality. Adrenal: No suspicious lesions. Kidney/ureter: No hydronephrosis. No renal calculi. Retroperitoneum: No retroperitoneal adenopathy. Vascular: No aneurysm. Bowel: Normal appendix.. No bowel obstruction. Peritoneum: No ascites or free air. Bladder: Grossly unremarkable. Reproductive: No adnexal masses. Bones: No acute fracture. Other: n/a IMPRESSION: No acute intra-abdominal or pelvic finding. Normal appendix.
[2022-05-18 23:49] LABS: SARS-COV-2 RT PCR NEGATIVE (NEGATIVE)
--- NOTE | 2022-05-19 02:03 | EDPHYS ---
Physician Documentation [facility] Name: Patrizia Young Age: 31 yrs Sex: Female : 1990 Arrival Date: 05/18/2022 Time: 20:32 Bed 11 Private MD: ED Physician [place] HPI: 05/18 21:05 This 31 yrs old Female presents to ER via Ambulatory with complaints of cp Nausea/Vomiting, Abdominal Pain, Abdominal Swelling. 21:05 The patient presents to the emergency department with nausea, that is moderate, cp vomiting, that is intermittent, abdominal pain, of the abdomen diffusely, described as constant. 21:05 Onset: The symptoms/episode began/occurred yesterday. cp 21:05 Possible causes: unknown. Associated signs and symptoms: Pertinent positives: cough, cp Pertinent negatives: constipation, diarrhea, fever, GI bleeding. Severity of symptoms: in the emergency department the symptoms are unchanged despite home interventions. Patient reports history of lung mass diagnosed several years ago that she has never followed up about. 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 - Social history:: Smoking status: Patient reports the use of cigarette tobacco products, smokes one-half pack cigarettes per day. ROS: 21:10 Constitutional: Negative for body aches, chills, fever, poor PO intake. cp 21:10 Eyes: Negative for injury, pain, redness, and discharge. cp 21:10 ENT: Negative for drainage from ear(s), ear pain, sore throat, difficulty swallowing, difficulty handling secretions. 21:10 Cardiovascular: Negative for chest pain, edema, palpitations. 21:10 Respiratory: Positive for cough, Negative for shortness of breath, wheezing. 21:10 Abdomen/GI: Positive for abdominal pain, nausea and vomiting, Negative for diarrhea, constipation, hematemesis, black/tarry stool, rectal bleeding. 21:10 : Negative for urinary symptoms. 21:10 Neuro: Negative for altered mental status, dizziness, headache, weakness. 21:10 All other systems are negative. Exam: 21:15 Constitutional: The patient appears in no acute distress, alert, awake, cp non-diaphoretic, non-toxic, well developed, well nourished, uncomfortable. 21:15 Head/Face: Normocephalic, atraumatic. cp 21:15 Eyes: Periorbital structures: appear normal, Conjunctiva: normal, no exudate, no cp injection, Sclera: no appreciated abnormality, Lids and lashes: appear normal, bilaterally. 21:15 ENT: External ear(s): are unremarkable, Nose: is normal, Mouth: Lips: moist, Oral cp mucosa: pink and intact, moist, Posterior pharynx: Airway: no evidence of obstruction, patent, swelling, is not appreciated, erythema, is not appreciated, exudate, is not appreciated. 21:15 Chest/axilla: Inspection: normal. 21:15 Cardiovascular: Rate: tachycardic, Rhythm: regular, Edema: is not appreciated, JVD: is not appreciated. 21:15 Respiratory: the patient does not display signs of respiratory distress, Respirations: normal, no use of accessory muscles, no retractions, labored breathing, is not present, Breath sounds: are clear throughout, no decreased breath sounds, no stridor, no wheezing. 21:15 Abdomen/GI: Inspection: abdomen appears normal, Bowel sounds: active, all quadrants, Palpation: soft, in all quadrants, moderate abdominal tenderness, in all quadrants, rebound tenderness, is not appreciated, involuntary guarding, is not appreciated. 21:15 Back: CVA tenderness, is absent. 21:15 Skin: no rash present. 21:15 Neuro: Orientation: to person, place \T\ time. Mentation: is normal, Motor: moves all fours, strength is normal, Sensation: is normal. Vital Signs: 20:38 BP 139 / 90; Pulse 118; Resp 18; Temp 99(O); Pulse Ox 100% on R/A; Weight 63.5 kg; tw5 Height 5 ft. 4 in. (162.56 cm); Pain 5/10; 21:43 BP 121 / 75; Pulse 95; Resp 18; Pulse Ox 100% on R/A; em6 22:59 BP 130 / 95; Pulse 94; Resp 20; Pulse Ox 100% on R/A; em6 23:42 BP 115 / 79; Pulse 95; Resp 17; Temp 98.0; Pulse Ox 100% ; rv1 05/19 02:19 BP 115 / 78; Pulse 90; Resp 18; Temp 98; Pulse Ox 100% ; Pain 0/10; pf1 05/18 20:38 Body Mass Index 24.03 (63.50 kg, 162.56 cm) tw5 MDM: 05/18 20:51 Patient medically screened. 05/19 02:00 Data reviewed: vital signs, nurses notes, lab test result(s), radiologic studies, CT cp scan, plain films. 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 Response to treatment: the patient's symptoms have markedly improved after treatment, and as a result, I will discharge patient. Special discussion: results of chest xray and CT chest showing mediastinal adenopathy. 05/18 21:00 Order name: CBC with Diff; Complete Time: 22:12 tw5 05/18 22:12 Interpretation: Normal except: WBC 11.60; RDW 15.3; NEUT A 8.1. 05/18 21:00 Order name: CMP; Complete Time: 23:06 tw5 05/18 23:07 Interpretation: TP 8.5; GLOB 5.1; A/G 0.7; Reviewed. 05/18 21:00 Order name: Lipase; Complete Time: 23:06 tw5 05/18 21:08 Order name: UDS; Complete Time: 23:06 05/18 23:07 Interpretation: Normal except: BZO POSITIVE; KARLENE POSITIVE. 05/18 21:12 Order name: COVID-19/FLU A+B; Complete Time: 01:24 05/18 21:42 Order name: Urine Dipstick-Ancillary; Complete Time: 22:12 EDMS 05/18 22:12 Interpretation: Normal except: UPROT 2+. 05/18 21:11 Order name: XRAY Chest (1 view); Complete Time: 23:06 cp 05/18 21:54 Order name: Glucose, Ancillary Testing; Complete Time: 22:12 EDMS 05/18 22:13 Order name: CT Abd/Pelvis - IV Contrast Only; Complete Time: 23:06 cp 05/18 22:34 Order name: Urine --Ancillary (enter results); Complete Time: 23:06 mw2 05/18 23:19 Order name: CT Chest W/ Con cp 05/18 21:00 Order name: IV Saline Lock; Complete Time: 21:40 tw5 05/18 21:00 Order name: Labs collected and sent; Complete Time: 21:41 tw5 05/18 21:00 Order name: Urine Dipstick-Ancillary (obtain specimen); Complete Time: 21:43 tw5 05/18 21:00 Order name: Urine Test (obtain specimen); Complete Time: 21:43 tw5 05/18 21:02 Order name: Accucheck Blood Glucose; Complete Time: 21:40 05/19 01:37 Order name: PO challenge; Complete Time: 02:08 cp Administered Medications: 05/18 21:40 Drug: Zofran (Ondansetron) 4 mg Route: IVP; Site: left antecubital; em6 22:30 Follow up: Response: No adverse reaction em6 21:40 Drug: Pepcid (famotidine) 20 mg Route: IVP; Site: left antecubital; em6 22:30 Follow up: Response: No adverse reaction em6 21:40 Drug: NS 0.9% 1000 ml Route: IV; Rate: 1 bolus; Site: left antecubital; em6 22:40 Follow up: IV Status: Completed infusion; IV Intake: 1000ml pf1 23:04 Follow up: Response: No adverse reaction; IV Status: Completed infusion; IV Intake: em6 1000ml Disposition Summary: 05/19/22 02:03 Discharge Ordered Location: Home cp Problem: new cp Symptoms: have improved cp Condition: Stable cp Diagnosis - Nausea with vomiting, unspecified cp - Cocaine use, unspecified, uncomplicated cp - Thoracic Compression Fracture T4, T5, T6, and T7 cp - Mediastinal and bilateral hilar adenopathy cp - Abdominal pain, unspecified cp Followup: cp - With: Asaf Perera MD - When: 2 - 3 days - Reason: mediastinal and bilateral hilar adenopathy Followup: cp - With: Private Physician - When: 2 - 3 days - Reason: nausea/vomiting Discharge Instructions: - Discharge Summary Sheet cp - Abdominal Pain, Adult cp - Nausea and Vomiting, Adult cp - Cocaine Use Disorder cp - Spinal Compression Fracture cp - Thoracic Spine Fracture cp - Lymphadenopathy cp Forms: - Medication Reconciliation Form cp - Thank You Letter cp - Antibiotic Education cp - Prescription Opioid Use cp Prescriptions: - Zofran 4 mg Oral Tablet - take 1 tablet by ORAL route every 12 hours As needed; 20 tablet; Refills: 0, cp Product Selection Permitted Addendum: 05/20/2022 17:00 Co-signature as Attending Physician, [place] MD I agree with the assessment and r t plan of care. Signatures: Dispatcher [employer] EDMS Rajendra Padilla PA PA Nathalie Reid tw5 Bettie Pierre RN RN em6 [place] MD MD rt Hawa hart RN pf1 Corrections: (The following items were deleted from the chart) 05/18 23:07 23:07 Reviewed. cp cp
--- NOTE | 2022-05-19 02:03 | ER ---
Nurse's Notes [facility] Name: Patrizia Young Age: 31 yrs Sex: Female : 1990 Arrival Date: 05/18/2022 Time: 20:32 Bed 11 Private MD: Diagnosis: Nausea with vomiting, unspecified;Cocaine use, unspecified, uncomplicated;Thoracic Compression Fracture T4, T5, T6, and T7;Mediastinal and bilateral hilar adenopathy;Abdominal pain, unspecified Presentation: 05/18 20:38 Chief complaint: Patient states: "I just cannot keep nothing down. I think I am tw5 dehydrated. I have drank a lot of water. I am still thirsty. Every time I drink I get sick and I feel like my stomach is swollen.". Coronavirus screen: Vaccine status: Patient reports being unvaccinated. Ebola Screen: Patient negative for fever greater than or equal to 101.5 degrees Fahrenheit, and additional compatible Ebola Virus Disease symptoms Patient denies exposure to infectious person. Patient denies travel to an Ebola-affected area in the 21 days before illness onset. Initial Sepsis Screen: Does the patient meet any 2 criteria? HR > 90 bpm. Does the patient have a suspected source of infection? Yes: Acute abdominal pain. Risk Assessment: Do you want to hurt yourself or someone else? Patient reports no desire to harm self or others. Onset of symptoms was May 17, 2022 at 20:00. 20:38 Method Of Arrival: Ambulatory tw5 20:38 Acuity: GLADYS 3 tw5 Triage Assessment: 20:40 General: Appears uncomfortable, Behavior is cooperative, appropriate for age. Pain: tw5 Pain currently is 5 out of 10 on a pain scale. GI: Reports nausea, vomiting. 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 - Social history:: Smoking status: Patient reports the use of cigarette tobacco products, smokes one-half pack cigarettes per day. Screenin:43 Abuse screen: Denies threats or abuse. Nutritional screening: No deficits noted. em6 Tuberculosis screening: No symptoms or risk factors identified. Fall Risk IV access (20 points). Total Chahal Fall Scale indicates No Risk (0-24 pts). Assessment: 21:41 General: Appears in no apparent distress. Behavior is cooperative. Pain: Complains of em6 pain in abdomen Pain does not radiate. Pain currently is 8 out of 10 on a pain scale. Quality of pain is described as sharp. Neuro: Cruz Agitation-Sedation Scale (RASS): 0 - Alert and Calm. Cardiovascular: Patient's skin is warm and dry. Respiratory: Airway is patent Respiratory effort is even, unlabored, Respiratory pattern is regular, symmetrical, Breath sounds are clear bilaterally. GI: Abdomen is non-distended, Bowel sounds present X 4 quads. Abd is soft and non tender X 4 quads. : No signs and/or symptoms were reported regarding the genitourinary system. EENT: No signs and/or symptoms were reported regarding the EENT system. Derm: No signs and/or symptoms reported regarding the dermatologic system. Musculoskeletal: Circulation, motion, and sensation intact. Range of motion: intact in all extremities. 22:40 Reassessment: Patient appears in no apparent distress at this time. No changes from em6 previously documented assessment. Patient and/or family updated on plan of care and expected duration. Pain level reassessed. Patient is alert, oriented x 3, equal unlabored respirations, skin warm/dry/pink. 23:40 Reassessment: Patient appears in no apparent distress at this time. No changes from em6 previously documented assessment. Patient and/or family updated on plan of care and expected duration. Pain level reassessed. Patient is alert, oriented x 3, equal unlabored respirations, skin warm/dry/pink. Vital Signs: 20:38 BP 139 / 90; Pulse 118; Resp 18; Temp 99(O); Pulse Ox 100% on R/A; Weight 63.5 kg; tw5 Height 5 ft. 4 in. (162.56 cm); Pain 5/10; 21:43 BP 121 / 75; Pulse 95; Resp 18; Pulse Ox 100% on R/A; em6 22:59 BP 130 / 95; Pulse 94; Resp 20; Pulse Ox 100% on R/A; em6 23:42 BP 115 / 79; Pulse 95; Resp 17; Temp 98.0; Pulse Ox 100% ; rv1 05/19 02:19 BP 115 / 78; Pulse 90; Resp 18; Temp 98; Pulse Ox 100% ; Pain 0/10; pf1 05/18 20:38 Body Mass Index 24.03 (63.50 kg, 162.56 cm) tw5 ED Course: 05/18 20:32 Patient arrived in ED. ja2 20:40 Triage completed. tw5 20:40 Arm band placed on. tw5 20:42 Rajendra Padilla PA is PHCP. cp 20:42 [place] MD is Attending Physician. cp 21:08 Bettie Pierre, ALEJANDRINA is Primary Nurse. em6 21:35 Inserted saline lock: 22 gauge in left antecubital area, using aseptic technique. Blood em6 collected. 21:43 Bed in low position. Pulse ox on. NIBP on. Warm blanket given. em6 22:09 XRAY Chest (1 view) In Process Unspecified. EDMS 22:56 CT Abd/Pelvis - IV Contrast Only In Process Unspecified. EDMS 05/19 00:19 CT Chest W/ Con In Process Unspecified. EDMS 01:57 Asaf Preera MD is Referral Physician. cp 02:18 Diet: Patient given water. Tolerated well. pf1 02:21 No provider procedures requiring assistance completed. IV discontinued, intact, pf1 bleeding controlled, No redness/swelling at site. Pressure dressing applied. Administered Medications: 05/18 21:40 Drug: Zofran (Ondansetron) 4 mg Route: IVP; Site: left antecubital; em6 22:30 Follow up: Response: No adverse reaction em6 21:40 Drug: Pepcid (famotidine) 20 mg Route: IVP; Site: left antecubital; em6 22:30 Follow up: Response: No adverse reaction em6 21:40 Drug: NS 0.9% 1000 ml Route: IV; Rate: 1 bolus; Site: left antecubital; em6 22:40 Follow up: IV Status: Completed infusion; IV Intake: 1000ml pf1 23:04 Follow up: Response: No adverse reaction; IV Status: Completed infusion; IV Intake: em6 1000ml Medication: 05/19 02:21 VIS not applicable for this client. pf1 Intake: 05/18 22:40 IV: 1000ml; Total: 1000ml. pf1 23:04 IV: 1000ml; Total: 2000ml. em6 Outcome: 05/19 02:03 Discharge ordered by . cp 02:21 Discharged to home ambulatory, with family. pf1 02:21 Condition: improved 02:21 Discharge instructions given to patient, Instructed on discharge instructions, follow up and referral plans. medication usage, Demonstrated understanding of instructions, follow-up care, medications, Prescriptions given X 1. 02:22 Patient left the ED. pf1 Signatures: Dispatcher [employer] EDMS Rajendra Padilla PA PA cp Alexander, Jessica ja2 Wood, Tiffany tw5 Bettie Pierre RN RN em6 Hawa hart RN RN pf1 Kayleen Earl 1
[2022-05-19 02:33] VITALS: O2SAT 100
[2022-05-19 02:38] VITALS: BP 115/78; TEMP 98
--- NOTE | 2022-05-19 13:01 | RAD REPORT ---
EXAM DESCRIPTION: CT - Thorax W/ Con - 05/19/2022 6:53 am CLINICAL HISTORY: 31 years Female mediastinal and hilar lymphadenopathy COMPARISON: None TECHNIQUE: Images were obtained in axial, sagittal, and coronal planes. Intravenous contrast was adm inistered. 3-D MIP imaging was performed. This exam was performed according to our departmental dose-optimization program which includes use of Automated Exposure Control, adjustment of the mA and/or kV according to patient size and/or use of i terative reconstruction technique. FINDINGS: No filling defects pulmonary arteries bilaterally. No aortic dissection or dilatation. Extensive mediastinal and bilateral hilar adenopathy. 5.8 x 4.1 cm matted adenopathy subcarinal regio n. 0.3 cm lymph node right paratracheal region. Marked adenopathy aortopulmonary window with the larg est lymph node measuring 3.8 cm. 3.6 cm right hilar lymph node. 3.4 cm confluent adenopathy left hilu m. Decreased caliber main pulmonary arteries bilaterally more pronounced on the left related to effac ement by adenopathy. Suspected left supraclavicular adenopathy. No axillary or retrocrural adenopathy . No pericardial or pleural effusions bilaterally. Reticulation peripheral right lung. No lung parenchymal infiltrates seen. No lung parenchymal nodules seen. No pneumothorax. Heterogeneous enhancement liver. Adrenal glands within normal limits bilaterally. Spleen within ann marie l limits in size. Compression fractures of indeterminate age T4, T5, T6, and T7 vertebral body. No posterior convexly o r bony narrowing of these final canal. IMPRESSION: No evidence for pulmonary embolus. No aortic dissection or dilatation. Extensive mediast inal and bilateral hilar adenopathy. Inflammatory process versus lymphoma or leukemia should be exclu ded. Sarcoidosis is also a consideration. Compression fractures of indeterminate age T4-T7 vertebral bodies. Consider correlation with radioiso helen PET/CT scan to further exclude pathologic fracture. 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 The interpreting radiologist is fully responsible for the content of the report.
== END 2022-05-19 02:22 | disposition home or self-care (01) ==
LOC: ER 20:28
DX: F14.90 Cocaine use, unspecified, uncomplicated (principal); R10.9 Unspecified abdominal pain; S22.049A Unspecified fracture of fourth thoracic vertebra, initial encounter for closed fracture; S22.059A Unspecified fracture of T5-T6 vertebra, initial encounter for closed fracture; S22.069A Unspecified fracture of T7-T8 vertebra, initial encounter for closed fracture; R59.9 Enlarged lymph nodes, unspecified
CPT/HCPCS: 0240U; 36415; 71045; 71260; 74177; 80053; 80307; 81003; 81025; 82947; 83690; 85025; 96361; 96374; 96375; 99284; J2405; J7030; Q9967

== ENCOUNTER 2022-12-19 22:56 | Emergency (ER) | payer OTHER ==
--- OUTSIDE RECORDS SUMMARY | 2022-12-19 23:00 | XMS REPORT | Continuity of Care Document ---
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 Narrative: 02/06/21 19:37 ddx: drug use, electrolyte a bnormality, anxiety. will do basic medical workup and if with in normal limits patient will be taken to psych intake for further workup 02/06/21 21:23 Patient got her blood work, was ordered ativan and was awaiting psych consult. however she became very upset, stated that she no longer wanted to be here, walked out of the ED, no longer wanting any further care. she called her grandfather to pick her up. I was made aware of this after the patient left the ED. (Constance Gambino) Discharge Plan - Discharge Clinical Impression: Encounter for psychiatric assessment Disposition: Left Against Medical Advice Condition: Fair - Discharge Data Time Seen by Provider: 02/06/21 19:13 Dictated By: MONIQUE León Signed By: Constance Gambino 02/06/212130 Mel Montelongo MD 02/10/21 172 DD/ 32 TD/TT: 02/06/211932 Board Certified Arts Therapist: DARYL cc: BRIDGETTE* PCP,UNKNOWN
[2022-12-19] MEDS ORDERED: FLUORESCEIN SODIUM 1 MG/WRAP ONE (23:40)
[2022-12-19] MEDS ORDERED: GENTAMICIN 0.3% OPTH DROP 5ML ONE (23:40)
[2022-12-19] MEDS ORDERED: TETRACAINE HCL 0.5% 4ML OPTH ONE (23:40)
--- NOTE | 2022-12-19 23:51 | ER ---
Nurse's Notes [facility] Name: Patrizia Young Age: 32 yrs Sex: Female : 1990 Arrival Date: 12/19/2022 Time: 22:56 Bed 4 Private MD: Diagnosis: Injury of conjunctiva and corneal abrasion without foreign body, right eye Presentation: 12/19 23:11 Chief complaint: Patient states: "I accidently poked myself in the right eye with my as6 nail". Coronavirus screen: At this time, the client does not indicate any symptoms associated with coronavirus-19. Ebola Screen: No symptoms or risks identified at this time. Initial Sepsis Screen: Does the patient meet any 2 criteria? No. Patient's initial sepsis screen is negative. Does the patient have a suspected source of infection? No. Patient's initial sepsis screen is negative. Risk Assessment: Do you want to hurt yourself or someone else? Patient reports no desire to harm self or others. Onset of symptoms was December 19, 2022. 23:11 Method Of Arrival: Ambulatory as6 23:11 Acuity: GLADYS 4 as6 FAGOT HEATER: 23:15 LMP 12/19/2022 as6 Historical: - Allergies: 23:15 Amoxicillin; as6 - PMHx: 23:15 AGORAPHOBIA; Anxiety; Bipolar disorder; Depression; Panic Attacks; as6 - Immunization history:: Client reports receiving the 1st dose of the Covid vaccine. - Social history:: Smoking status: Patient reports the use of cigarette tobacco products, smokes one pack cigarettes per day. - Family history:: not pertinent. Screenin/02 00:03 [facility] ED Fall Risk Assessment (Adult) History of falling in the last 3 months, jb4 including since admission No falls in past 3 months (0 pts) Confusion or Disorientation No (0 pts) Score/Fall Risk Level 0 - 2 = Low Risk Oriented to surroundings, Maintained a safe environment. Abuse screen: Denies threats or abuse. Nutritional screening: No deficits noted. Tuberculosis screening: No symptoms or risk factors identified. Assessment: 00:03 General: Appears in no apparent distress. comfortable, Behavior is calm, cooperative, jb4 appropriate for age. Pain: Complains of pain in right eye Pain does not radiate. Pain currently is 5 out of 10 on a pain scale. Neuro: Level of Consciousness is awake, alert, obeys commands, Oriented to person, place, time, situation. Cardiovascular: Patient's skin is warm and dry. Respiratory: Airway is patent Respiratory effort is even, unlabored, Respiratory pattern is regular, symmetrical. GI: No signs and/or symptoms were reported involving the gastrointestinal system. : No signs and/or symptoms were reported regarding the genitourinary system. EENT: Sclera/Cornea are reddened in outer aspect of conjuctiva of right eye, iris of right eye and inner aspect of conjuctiva of right eye. Derm: Skin is intact, Skin is pink, warm \\T\\ dry. Musculoskeletal: Circulation, motion, and sensation intact. Range of motion: intact in all extremities. Vital Signs: 12/19 23:11 BP 141 / 94; Pulse 103; Resp 20 S; Temp 97.9(O); Pulse Ox 100% on R/A; Weight 63.5 kg as6 (R); Height 5 ft. 4 in. (R); Pain 10/10; 23:11 Body Mass Index 24.03 (63.50 kg, 162.56 cm) as6 23:11 Pain Scale: Adult as6 ED Course: 22:57 Patient arrived in ED. kj1 23:15 Triage completed. as6 23:15 Arm band placed on. as6 23:16 Adeline Chavez, RN is Primary Nurse. kd3 23:21 Nicholas Goodman MD is Attending Physician. sp4 23:50 Milton Adams MD is Referral Physician. sp4 12/20 00:03 Patient has correct armband on for positive identification. Bed in low position. Call jb4 light in reach. Side rails up X 1. 00:03 No provider procedures requiring assistance completed. Patient did not have IV access jb4 during this emergency room visit. Administered Medications: 12/19 23:38 Drug: Tetracaine Ophthalmic Drops 0.5 % 1 drops Route: Ophthalmic; Site: right eye; kd3 23:38 Drug: Tobramycin Ophthalmic Drops (0.3 %) 2 drops Route: Ophthalmic; Site: right eye; kd3 23:43 Drug: Gentamicin Ophthalmic Drops 0.3 % 2 drops Route: Ophthalmic; Site: right eye; kd3 Medication: 12/20 00:03 VIS not applicable for this client. jb4 Outcome: 12/19 23:51 Discharge ordered by . sp4 12/20 00:03 Discharged to home ambulatory, with family. jb4 Condition: stable Discharge instructions given to patient, Instructed on discharge instructions, follow up and referral plans. medication usage, Demonstrated understanding of instructions, follow-up care, medications, Prescriptions given X 1. 00:06 Patient left the ED. jb4 Signatures: Trevor Chen RN RN jb4 Corrie Kent kj1 Rey Garcias RN RN as6 Adeline Chavez RN RN kd3 Nicholas Goodman MD MD sp4
--- NOTE | 2022-12-19 23:52 | EDPHYS ---
Physician Documentation [facility] Name: Patrizia Young Age: 32 yrs Sex: Female : 1990 Arrival Date: 12/19/2022 Time: 22:56 Bed 4 Private MD: ED Physician Nicholas Goodman HPI: 12/19 23:21 This 32 yrs old Female presents to ER via Ambulatory with complaints of Eye sp4 Injury. 23:29 Patient presents with acute right eye pain starting today after she accidentally nicked sp4 it with her fingernail. . 23:42 Patient now presents with right eye pain, redness irritation and difficulty opening sp4 eyelids.. DIRECTOR OF TESTING: 23:15 LMP 12/19/2022 as6 Historical: - Allergies: 23:15 Amoxicillin; as6 - PMHx: 23:15 AGORAPHOBIA; Anxiety; Bipolar disorder; Depression; Panic Attacks; as6 - Immunization history:: Client reports receiving the 1st dose of the Covid vaccine. - Social history:: Smoking status: Patient reports the use of cigarette tobacco products, smokes one pack cigarettes per day. - Family history:: not pertinent. ROS: 23:42 Constitutional: Negative for fever, chills, and weight loss, Eyes: Positive for right sp4 eye pain or redness and right eye tearing also right eye abrasion via fingernail, negative left eye complaint 23:42 All other systems are negative. Exam: 23:42 Constitutional: This is a well developed, well nourished patient who is awake, alert, sp4 and in no acute distress. Head/Face: Normocephalic, atraumatic. Eyes: Pupils equal round and reactive to light, extra-ocular motions intact. Lids and lashes normal. Patient had fluorescein right eye exam. There is a right corneal abrasion at 2:00 location, there is also some conjunctival abrasions, conjunctival erythema and persistent tearing. No foreign bodies embedded in cornea and no foreign bodies under the eyelids. Exam consistent with acute corneal abrasion to the right eye. Left eye examination is unremarkable ENT: Nares patent. No nasal discharge, no septal abnormalities noted. Tympanic membranes are normal and external auditory canals are clear. Oropharynx with no redness, swelling, or masses, exudates, or evidence of obstruction, uvula midline. Mucous membranes moist. Neck: Trachea midline, no thyromegaly or masses palpated, and no cervical lymphadenopathy. Supple, full range of motion without nuchal rigidity, or vertebral point tenderness. Chest/axilla: Normal chest wall appearance and motion. Nontender with no deformity. No lesions are appreciated. Cardiovascular: Regular rate and rhythm with a normal S1 and S2. No gallops, murmurs, or rubs. Normal PMI, no JVD. No pulse deficits. Respiratory: Lungs have equal breath sounds bilaterally, clear to auscultation and percussion. No rales, rhonchi or wheezes noted. No increased work of breathing, no retractions or nasal flaring. Abdomen/GI: Soft, non-tender, with normal bowel sounds. No distension or tympany. No guarding or rebound. No evidence of tenderness throughout. Back: No spinal tenderness. No costovertebral tenderness. Skin: Warm, dry with normal turgor. Normal color with no rashes, no lesions, and no evidence of cellulitis. MS/ Extremity: Pulses equal, no cyanosis. Neurovascular intact. Full, normal range of motion. Neuro: Awake and alert, GCS 15, oriented to person, place, time, and situation. Cranial nerves II-XII grossly intact. Motor strength 5/5 in all extremities. Sensory grossly intact. Psych: Awake, alert, with orientation to person, place and time. Behavior, mood, and affect are within normal limits Vital Signs: 23:11 BP 141 / 94; Pulse 103; Resp 20 S; Temp 97.9(O); Pulse Ox 100% on R/A; Weight 63.5 kg as6 (R); Height 5 ft. 4 in. (R); Pain 10/10; 23:11 Body Mass Index 24.03 (63.50 kg, 162.56 cm) as6 23:11 Pain Scale: Adult as6 MDM: 23:24 Patient medically screened. sp4 23:42 Differential diagnosis: Corneal abrasion of Corneal ulcer of Foreign body in Acute sp4 iritis of Acute glaucoma in Ultraviolet keratitis in. Differential diagnosis: Ultraviolet keratitis in right eye. Data reviewed: vital signs, nurses notes. Consideration of Admission/Observation Escalation of care including admission/observation considered. ED course: Acute right eye corneal abrasion. Patient was provided gentamicin eyedrops 2 drops right eye every 4 hours to 5 days , will advise follow-up with percussion instrument tuner in 2 to 3 days for repeat right eye exam. . 12/19 23:29 Order name: Eye Tray; Complete Time: 23:38 sp4 12/19 23:29 Order name: Fluoresene Opth strip; Complete Time: 23:38 sp4 Administered Medications: 23:38 Drug: Tetracaine Ophthalmic Drops 0.5 % 1 drops Route: Ophthalmic; Site: right eye; kd3 23:38 Drug: Tobramycin Ophthalmic Drops (0.3 %) 2 drops Route: Ophthalmic; Site: right eye; kd3 23:43 Drug: Gentamicin Ophthalmic Drops 0.3 % 2 drops Route: Ophthalmic; Site: right eye; kd3 Disposition Summary: 12/19/22 23:51 Discharge Ordered Location: Home sp4 Problem: new sp4 Symptoms: have improved sp4 Condition: Stable sp4 Diagnosis - Injury of conjunctiva and corneal abrasion without foreign body, right eye sp4 Followup: sp4 - With: Milton Adams MD - When: 2 - 3 days - Reason: Recheck today's complaints Discharge Instructions: - Discharge Summary Sheet sp4 - Corneal Abrasion, [id number] sp4 Forms: - [email or web address] sp4 Prescriptions: - tobramycin 0.3 % Ophthalmic drops - instill 2 drop by OPHTHALMIC route every 4 hours 2 drops R eye every 4 hours sp4 for 5 days; 5 milliliter; Refills: 0, Product Selection Permitted Signatures: Rey Garcias RN RN as6 Adeline Chavez RN RN kd3 Nicholas Goodman MD MD sp4
[2022-12-20 00:22] VITALS: BP 141/94; TEMP 97.9; O2SAT 100
== END 2022-12-20 00:06 | disposition home or self-care (01) ==
LOC: ER 22:56
DX: S05.01XA Injury of conjunctiva and corneal abrasion without foreign body, right eye, initial encounter (principal); F17.210 Nicotine dependence, cigarettes, uncomplicated; Z88.1 Allergy status to other antibiotic agents
CPT/HCPCS: 99283

== ENCOUNTER 2023-01-14 14:45 | Emergency (ER) | payer OTHER, SELFPAY ==
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
[2023-01-14] MEDS ORDERED: ONDANSETRON 4 MG/2 ML VIAL ONE (15:29)
[2023-01-14] MEDS ORDERED: cloNIDine HCL 0.1 MG TAB ONE (15:29)
[2023-01-14] MEDS ORDERED: NA CHLORIDE 0.9% 1,000 ML ONE (15:29)
[2023-01-14 15:38] LABS: Absolute Lymphocytes (CBC) 2.5 K/uL (0.7-4.9); Hematocrit 34.6 % (36.0-45.0); Lymphocytes % 23.8 % (15.3-44.8); MCV 80.6 fL (80-100); MPV 7.9 fL (7.6-11.3)
[2023-01-14 15:46] LABS: Bilirubin Total 0.8 mg/dL (0.2-1.0); Potassium 3.6 mEq/L (3.5-5.1); Protein, Total 7.7 g/dL (6.4-8.2)
--- NOTE | 2023-01-14 15:51 | EDPHYS ---
Physician Documentation [facility] Name: Patrizia Young Age: 32 yrs Sex: Female : 1990 Arrival Date: 01/14/2023 Time: 14:45 Bed 18 Private MD: ED Physician Danielle Blanco HPI: 01/14 15:03 This 32 yrs old Female presents to ER via Unassigned with complaints of Drug sp3 withdrawal. 15:03 32-year-old female with a history of methamphetamine abuse now presents to the ED via sp3 EMS for chief complaint "withdrawal symptoms" which consist of shaking, tremors, nausea and dehydration. Patient last used substances January 10, 2023 which consisted of methamphetamine injected, alcohol, p.o. Xanax. Patient currently has no thoughts of suicide, homicide and is not hearing voices or any other psychosis. Patient denies headache, neck pain, chest pain, shortness of breath, diarrhea, abdominal pain, or any other signs or symptoms on ROS at this time.. Historical: - Allergies: 15:13 Amoxicillin; db - PMHx: 15:13 AGORAPHOBIA; Anxiety; Bipolar disorder; Depression; Panic Attacks; db - Immunization history:: Client reports having NOT received the Covid vaccine. - Social history:: Smoking status: Patient uses alcohol, street drugs, IV drugs, amphetamines. ROS: 15:04 Constitutional: Negative for fever, chills, and weight loss, Eyes: Negative for injury, sp3 pain, redness, and discharge, Neck: Negative for injury, pain, and swelling, Respiratory: Negative for shortness of breath, cough, wheezing, and pleuritic chest pain, Back: Negative for injury and pain, MS/Extremity: Negative for injury and deformity, Skin: Negative for injury, rash, and discoloration, Neuro: Negative for headache, weakness, numbness, tingling, and seizure. 15:04 All other systems are negative. Exam: 15:05 Constitutional: This is a well developed, well nourished patient who is awake, alert, sp3 and in no acute distress. Head/Face: Normocephalic, atraumatic. Eyes: Pupils equal round and reactive to light, extra-ocular motions intact. Lids and lashes normal. Conjunctiva and sclera are non-icteric and not injected. Cornea within normal limits. Periorbital areas with no swelling, redness, or edema. Neck: Trachea midline, no thyromegaly or masses palpated, and no cervical lymphadenopathy. Supple, full range of motion without nuchal rigidity, or vertebral point tenderness. No Meningismus. Chest/axilla: Normal chest wall appearance and motion. Nontender with no deformity. No lesions are appreciated. Respiratory: Lungs have equal breath sounds bilaterally, clear to auscultation and percussion. No rales, rhonchi or wheezes noted. No increased work of breathing, no retractions or nasal flaring. Abdomen/GI: Soft, non-tender, with normal bowel sounds. No distension or tympany. No guarding or rebound. No evidence of tenderness throughout. Back: No spinal tenderness. No costovertebral tenderness. Full range of motion. MS/ Extremity: Pulses equal, no cyanosis. Neurovascular intact. Full, normal range of motion. Neuro: Awake and alert, GCS 15, oriented to person, place, time, and situation. Cranial nerves II-XII grossly intact. Motor strength 5/5 in all extremities. Sensory grossly intact. Cerebellar exam normal. Normal gait. Psych: Awake, alert, with orientation to person, place and time. Behavior, mood, and affect are within normal limits. 15:05 Cardiovascular: Tachycardia noted.. 15:05 Skin: Mild diaphoresis noted.. 15:05 ECG was reviewed by the Attending Physician. EKG demonstrates sinus tachycardia at 102 sp3 bpm with normal intervals, normal axis, normal QRS, normal axis ST segments without evidence of acute ischemia. Vital Signs: 14:45 BP 146 / 104; Pulse 110; Resp 20; Temp 98.4(O); Pulse Ox 100% ; Weight 63.5 kg; Height db 5 ft. 4 in. ; Pain 0/10; 15:00 BP 122 / 82; Pulse 92; Resp 16; Pulse Ox 100% on R/A; db 15:30 BP 112 / 77; Pulse 95; Resp 16; Pulse Ox 100% on R/A; db 14:45 Body Mass Index 24.03 (63.50 kg, 162.56 cm) db 14:45 Pain Scale: Adult db MDM: 14:55 Patient medically screened. sp3 15:05 Data reviewed: vital signs, nurses notes, EMS record, lab test result(s), EKG. sp3 15:07 ED course: 32-year-old female now withdrawing from alcohol, Xanax, and methamphetamine. sp3 Heart rate is already decreased with saline that EMS gave. Will administer clonidine 0.2 mg p.o., Zofran 4 mg IV, and second liter of IV fluids. Will discharge patient after that. Clinically I am not highly suspicious for significant withdrawal, delirium tremens, sepsis, shock, or any other critical pathology.. 15:50 ED course: Lab results reviewed and are within normal limits. Vital signs are also sp3 within normal limits and all medications been given. We will safely discharge patient home at this time.. 01/14 14:56 Order name: CBC with Diff; Complete Time: 15:50 sp3 01/14 14:56 Order name: CMP; Complete Time: 15:50 sp3 01/14 14:56 Order name: EKG; Complete Time: 14:56 sp3 01/14 14:56 Order name: IV Saline Lock; Complete Time: 15:21 sp3 01/14 14:56 Order name: Labs collected and sent; Complete Time: 15:21 sp3 01/14 14:56 Order name: EKG - Nurse/Tech; Complete Time: 15:00 sp3 Administered Medications: 15:15 Drug: NS 0.9% IV 1000 ml Route: IV; Rate: 1 bolus; Site: right hand; db 16:15 Follow up: Response: No adverse reaction; IV Status: Completed infusion db 15:15 Drug: Ondansetron IVP 4 mg Route: IVP; Site: right hand; db 16:15 Follow up: Response: No adverse reaction db 15:15 Drug: cloNIDine PO 0.2 mg Route: PO; db 16:44 Follow up: Response: No adverse reaction db Disposition Summary: 01/14/23 15:51 Discharge Ordered Location: Home sp3 Condition: Stable sp3 Diagnosis - Alcohol withdrawal, methamphetamine withdrawal, nausea sp3 Followup: sp3 - With: Private Physician - When: Upon discharge from the Emergency Department - Reason: Continuance of care Discharge Instructions: - Discharge Summary Sheet sp3 - Alcohol Withdrawal Syndrome sp3 - Benzodiazepine Withdrawal sp3 Forms: - Medication Reconciliation Form sp3 - Thank You Letter sp3 - Antibiotic Education sp3 - Prescription Opioid Use sp3 - Patient Portal Instructions sp3 Signatures: Dispatcher [employer] EDMS Blanco, Setul, MD MD sp3 Valeria Osborn, RN RN db
--- NOTE | 2023-01-14 15:51 | ER ---
Nurse's Notes [facility] Name: Patrizia Young Age: 32 yrs Sex: Female : 1990 Arrival Date: 01/14/2023 Time: 14:45 Bed 18 Private MD: Diagnosis: Alcohol withdrawal, methamphetamine withdrawal, nausea Presentation: 01/14 14:45 Chief complaint: EMS states: PATIENT PICKED UP FROM HOME WITH ANXIETY, SOB, TACHY 158. db PATIENT STATES QUIT ALCOHOL, XANAX AND METH ON 01/10. BLOOD GLUCOSE 68. Coronavirus screen: Vaccine status: Patient reports receiving the 2nd dose of the covid vaccine. Client denies travel out of the [place] in the last 14 days. At this time, the client does not indicate any symptoms associated with coronavirus-19. Ebola Screen: Patient negative for fever greater than or equal to 101.5 degrees Fahrenheit, and additional compatible Ebola Virus Disease symptoms Patient denies exposure to infectious person. Patient denies travel to an Ebola-affected area in the 21 days before illness onset. No symptoms or risks identified at this time. Initial Sepsis Screen: Does the patient meet any 2 criteria? HR > 90 bpm. Yes Does the patient have a suspected source of infection? No. Patient's initial sepsis screen is negative. Risk Assessment: Do you want to hurt yourself or someone else? Patient reports no desire to harm self or others. Onset of symptoms was January 14, 2023. Care prior to arrival: Medication(s) given: Normal saline infusion, 1000 mL, IV initiated. 20 GA, in the right hand, Glucose check: 68. 14:45 Method Of Arrival: EMS: [facility] db 14:45 Acuity: GLADYS 2 db Triage Assessment: 15:13 General: Appears in no apparent distress. comfortable, Behavior is calm, cooperative. db Pain: Denies pain. Neuro: Level of Consciousness is awake, alert, obeys commands, Oriented to person, place, time, situation. Respiratory: Reports shortness of breath at rest Onset: The symptoms/episode began/occurred gradually, the patient has mild shortness of breath. Historical: - Allergies: 15:13 Amoxicillin; db - PMHx: 15:13 AGORAPHOBIA; Anxiety; Bipolar disorder; Depression; Panic Attacks; db - Immunization history:: Client reports having NOT received the Covid vaccine. - Social history:: Smoking status: Patient uses alcohol, street drugs, IV drugs, amphetamines. Screenin:15 [facility] ED Fall Risk Assessment (Adult) History of falling in the last 3 months, db including since admission No falls in past 3 months (0 pts) Confusion or Disorientation No (0 pts) Intoxicated or Sedated No (0 pts) Impaired Gait No (0 pts) Mobility Assist Device Used No (0 pt) Altered Elimination No (0 pt) Score/Fall Risk Level 0 - 2 = Low Risk Oriented to surroundings, Maintained a safe environment. Abuse screen: Denies threats or abuse. Denies injuries from another. Nutritional screening: No deficits noted. Tuberculosis screening: No symptoms or risk factors identified. Assessment: 14:45 General: Appears uncomfortable, Behavior is agitated, anxious. Neuro: Level of db Consciousness is awake, alert, obeys commands, Oriented to person, place, time, situation. Cardiovascular: Rhythm is sinus tachycardia. Respiratory: Airway is patent Respiratory effort is even, unlabored, Respiratory pattern is regular, symmetrical, Breath sounds are clear bilaterally. 15:30 Reassessment: Patient appears in no apparent distress at this time. Patient and/or db family updated on plan of care and expected duration. Pain level reassessed. 16:15 Reassessment: Patient appears in no apparent distress at this time. Patient and/or db family updated on plan of care and expected duration. Pain level reassessed. Patient states feeling better. Patient states symptoms have improved. General: Appears in no apparent distress. comfortable, Behavior is calm, cooperative. Vital Signs: 14:45 BP 146 / 104; Pulse 110; Resp 20; Temp 98.4(O); Pulse Ox 100% ; Weight 63.5 kg; Height db 5 ft. 4 in. ; Pain 0/10; 15:00 BP 122 / 82; Pulse 92; Resp 16; Pulse Ox 100% on R/A; db 15:30 BP 112 / 77; Pulse 95; Resp 16; Pulse Ox 100% on R/A; db 14:45 Body Mass Index 24.03 (63.50 kg, 162.56 cm) db 14:45 Pain Scale: Adult db ED Course: 14:53 Patient arrived in ED. em1 14:55 Danielle Blanco MD is Attending Physician. sp3 15:00 EKG done, by ED staff. aw1 15:00 Maintain EMS IV. Dressing intact. Good blood return noted. Site clean \T\ dry. Gauge \T\ db site: 20G right hand. 15:09 Valeria Osborn, RN is Primary Nurse. db 15:13 Triage completed. db 15:15 Arm band placed on Patient placed in an exam room. db 15:22 Initial lab(s) drawn, by me, sent to lab. aw1 16:15 No provider procedures requiring assistance completed. IV discontinued, intact, db bleeding controlled, No redness/swelling at site. 16:15 Patient has correct armband on for positive identification. Bed in low position. Call db light in reach. Side rails up X2. Provided Education on: discharge. Administered Medications: 15:15 Drug: NS 0.9% IV 1000 ml Route: IV; Rate: 1 bolus; Site: right hand; db 16:15 Follow up: Response: No adverse reaction; IV Status: Completed infusion db 15:15 Drug: Ondansetron IVP 4 mg Route: IVP; Site: right hand; db 16:15 Follow up: Response: No adverse reaction db 15:15 Drug: cloNIDine PO 0.2 mg Route: PO; db 16:44 Follow up: Response: No adverse reaction db Medication: 16:15 VIS not applicable for this client. db Outcome: 15:51 Discharge ordered by . sp3 16:15 Discharged to home ambulatory, with family. db 16:15 Condition: stable 16:15 Discharge instructions given to patient, family, Instructed on discharge instructions, follow up and referral plans. 16:45 Patient left the ED. db Signatures: Bry Pierre em1 Danielle Blanco MD MD sp3 Valeria Osborn, RN RN db Idalia Hernandez aw1
[2023-01-14 17:30] VITALS: TEMP 98.4; O2SAT 100
[2023-01-14 17:33] VITALS: BP 112/77
--- NOTE | 2023-01-15 13:26 | EKG ---
Test Date: 2023-01-14 Test Time: 14:56:57 Equipment Service Engineer: PILAR MEASUREMENT RESULTS: Intervals: Rate: 102 NC: 120 QRSD: 74 QT: 376 QTc: 490 [place]: P: 65 NC: 120 QRS: 54 T: 60 INTERPRETIVE STATEMENTS: Sinus tachycardia Otherwise normal ECG Compared to ECG 02/04/2021 17:37:59 Sinus rhythm no longer present Electronically Signed On 01-15-23 13:24:28 CDT by Severo Quinones
== END 2023-01-14 16:45 | disposition home or self-care (01) ==
LOC: ER 14:45
DX: F10.239 Alcohol dependence with withdrawal, unspecified (principal); F15.23 Other stimulant dependence with withdrawal
CPT/HCPCS: 36415; 80053; 85025; 93005; 96361; 96374; 99284; J2405; J7030

== ENCOUNTER 2023-02-04 17:36 | Emergency (ER) | payer OTHER ==
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
--- NOTE | 2023-02-04 19:59 | ER ---
Nurse's Notes [facility] Name: Patrizia Young Age: 32 yrs Sex: Female : 1990 Arrival Date: 02/04/2023 Time: 17:36 Bed DX4 Private MD: Diagnosis: Rash and other nonspecific skin eruption Presentation: 02/04 18:25 Chief complaint: Patient states: "I have fiberglass mainly in my private area and on my cm10 back and face." Pt reports that she has been itching for a month. Pt states, "I have tried to take the fiberglass out at home with what I found on google." Pt states that she think she came in contact with it from her bathtub at her house. Coronavirus screen: Vaccine status: Patient reports being unvaccinated. Client denies travel out of the [place] in the last 14 days. Ebola Screen: Patient denies travel to an Ebola-affected area in the 21 days before illness onset. No symptoms or risks identified at this time. Initial Sepsis Screen: Does the patient meet any 2 criteria? No. Patient's initial sepsis screen is negative. Does the patient have a suspected source of infection? No. Patient's initial sepsis screen is negative. Risk Assessment: Do you want to hurt yourself or someone else? Patient reports no desire to harm self or others. Onset of symptoms is unknown. 18:25 Method Of Arrival: Ambulatory cm10 18:25 Acuity: GLADYS 4 cm10 Historical: - Allergies: 18:27 Amoxicillin; cm10 - PMHx: 18:27 AGORAPHOBIA; Anxiety; Bipolar disorder; Depression; Panic Attacks; cm10 - PSHx: 18:27 None; cm10 - Immunization history:: Adult Immunizations unknown. - Social history:: Smoking status: Patient reports the use of cigarette tobacco products, smokes one-half pack cigarettes per day, Patient uses street drugs, Methamphetamine (Meth). Screenin:58 [facility] ED Fall Risk Assessment (Adult) History of falling in the last 3 months, kl including since admission No falls in past 3 months (0 pts) Confusion or Disorientation No (0 pts) Intoxicated or Sedated No (0 pts) Impaired Gait No (0 pts) Mobility Assist Device Used No (0 pt) Altered Elimination No (0 pt) Score/Fall Risk Level 0 - 2 = Low Risk Oriented to surroundings, Maintained a safe environment. Abuse screen: Denies threats or abuse. Nutritional screening: No deficits noted. Tuberculosis screening: No symptoms or risk factors identified. Assessment: 19:57 General: Appears in no apparent distress. Behavior is anxious. Pain: Denies pain. kl Neuro: No deficits noted. Cardiovascular: No deficits noted. Respiratory: No deficits noted. GI: No deficits noted. No signs and/or symptoms were reported involving the gastrointestinal system. : No deficits noted. No signs and/or symptoms were reported regarding the genitourinary system. EENT: No deficits noted. No signs and/or symptoms were reported regarding the EENT system. Derm: No deficits noted. No signs and/or symptoms reported regarding the dermatologic system. Vital Signs: 18:25 BP 127 / 84; Pulse 100; Resp 18; Temp 98.1; Pulse Ox 100% ; cm10 20:06 BP 121 / 74; Pulse 91; Resp 16; Pulse Ox 98% on R/A; ED Course: 17:37 Patient arrived in ED. rg4 17:41 Rajendra Padilla PA is PHCP. cp 17:41 South Block MD is Attending Physician. cp 18:27 Triage completed. cm10 18:28 Arm band placed on Patient placed in an exam room, on a stretcher. cm10 19:58 No provider procedures requiring assistance completed. Patient did not have IV access kl during this emergency room visit. Administered Medications: No medications were administered Medication: 19:58 VIS not applicable for this client. Outcome: 19:59 Discharge ordered by . cp 20:07 Discharged to home ambulatory. kl 20:07 Condition: stable 20:07 Discharge instructions given to patient, Instructed on discharge instructions, follow up and referral plans. medication usage, Demonstrated understanding of instructions, follow-up care, medications, Prescriptions given X 2. 20:07 Patient left the ED. Signatures: Dori Cherry RN Rajendra Cruz PA PA cp Garcia, Rubi rg4 Carrie Pierre RN RN cm10
--- NOTE | 2023-02-04 19:59 | EDPHYS ---
Physician Documentation [facility] Name: Patrizia Young Age: 32 yrs Sex: Female : 1990 Arrival Date: 02/04/2023 Time: 17:36 Bed DX4 Private MD: ED Physician South Block HPI: 02/04 17:50 This 32 yrs old Female presents to ER via Unassigned with complaints of cp Covered In Fiberglass. 17:50 Type of Exposure: skin exposure to "fiberglass". cp 17:50 Area of exposure: back and pelvis. Context: at home. cp 18:00 Patient is a 32-year-old female who presents to the emergency department with concern cp for fiberglass exposure. Patient reports she moved to a new apartment about a month ago and complains of a rash on her back and arms and in genital area. Patient reports the rash has been itchy and that she knows she is exposed to fiberglass but she has seen on her clothing. Patient declines examination at this point and is requesting something for the itch. Historical: - Allergies: 18:27 Amoxicillin; cm10 - PMHx: 18:27 AGORAPHOBIA; Anxiety; Bipolar disorder; Depression; Panic Attacks; cm10 - PSHx: 18:27 None; cm10 - Immunization history:: Adult Immunizations unknown. - Social history:: Smoking status: Patient reports the use of cigarette tobacco products, smokes one-half pack cigarettes per day, Patient uses street drugs, Methamphetamine (Meth). ROS: 18:00 Constitutional: Negative for body aches, chills, fever, poor PO intake. cp 18:00 Eyes: Negative for injury, pain, redness, and discharge. cp 18:00 ENT: Negative for drainage from ear(s), ear pain, sore throat, difficulty swallowing, difficulty handling secretions. 18:00 Cardiovascular: Negative for chest pain, palpitations. 18:00 Respiratory: Negative for cough, shortness of breath, wheezing. 18:00 Abdomen/GI: Negative for abdominal pain, nausea, vomiting, diarrhea. 18:00 : Positive for vaginal bleeding, Negative for urinary symptoms. 18:00 Skin: Positive for rash, of the back and pelvis. 18:00 All other systems are negative. Exam: 18:05 Constitutional: The patient appears in no acute distress, alert, awake, comfortable, cp non-toxic, well developed, well nourished. 18:05 Head/Face: Normocephalic, atraumatic. cp 18:05 Eyes: Periorbital structures: appear normal, Conjunctiva: normal, no exudate, no injection, Sclera: no appreciated abnormality, Lids and lashes: appear normal, bilaterally. 18:05 ENT: External ear(s): are unremarkable, Nose: is normal, Mouth: Lips: moist, Oral mucosa: pink and intact, moist, Posterior pharynx: is normal, airway is patent, no erythema, no exudate. 18:05 Chest/axilla: Inspection: normal. 18:05 Cardiovascular: Rate: tachycardic, Rhythm: regular. 18:05 Respiratory: the patient does not display signs of respiratory distress, Respirations: normal, no use of accessory muscles, no retractions, labored breathing, is not present, Breath sounds: are clear throughout, no decreased breath sounds, no stridor, no wheezing. 18:05 Abdomen/GI: Exam negative for discomfort, distension, guarding. 18:05 : Pelvic Exam: The exam is refused by the patient/guardian. The risks and consequences are understood by the patient. 18:05 Skin: Appearance: Color: normal in color. Vital Signs: 18:25 BP 127 / 84; Pulse 100; Resp 18; Temp 98.1; Pulse Ox 100% ; cm10 20:06 BP 121 / 74; Pulse 91; Resp 16; Pulse Ox 98% on R/A; kl MDM: 18:36 Patient medically screened. cp 19:27 ED course: Spoke with poison control concerning patient's reported exposure to cp fiberglass for the past month. Melly answered the call and reported that treatment would consist of reducing exposure, cleaning and washing the skin and treating any skin rash or irritation with anti-itch cream and oral steroid. 19:58 Data reviewed: vital signs, nurses notes. cp 19:58 Counseling: I had a detailed discussion with the patient and/or guardian regarding the cp historical points, exam findings, and any diagnostic results supporting the discharge/admit diagnosis. Administered Medications: No medications were administered Disposition Summary: 02/04/23 19:59 Discharge Ordered Location: Home cp Problem: new cp Symptoms: are unchanged cp Condition: Stable cp Diagnosis - Rash and other nonspecific skin eruption cp Followup: cp - With: Private Physician - When: 2 - 3 days - Reason: Recheck today's complaints Discharge Instructions: - Discharge Summary Sheet cp - Rash, Adult cp Forms: - Work release form kl - Medication Reconciliation Form cp - Thank You Letter cp - Antibiotic Education cp - Prescription Opioid Use cp - Patient Portal Instructions cp - Leadership Thank You Letter cp Prescriptions: - Vistaril 25 mg Oral capsule - take 1 capsule by ORAL route every 6 to 8 hours As needed; 30 capsule; Refills: cp 0, Product Selection Permitted - Triamcinolone Acetonide 0.1 % Topical Ointment - apply 1 application by TOPICAL route every 12 hours As needed may apply to rash cp as directed, except in pelvic/genital area; 45 gram; Refills: 0, Product Selection Permitted Addendum: 02/07/2023 20:37 Co-signature as Attending Physician, South Block MD I reviewed the patient's care r t provided by the Advanced Practice Provider and agree with the diagnosis and treatment plan. Signatures: Rajendra Padilla PA PA cp South Block MD MD rt Carrie Pierre RN RN cm10
[2023-02-04 20:50] VITALS: TEMP 98.1
[2023-02-04 20:51] VITALS: BP 121/74; O2SAT 98
== END 2023-02-04 20:07 | disposition home or self-care (01) ==
LOC: ER 17:36
DX: R21 Rash and other nonspecific skin eruption (principal); F17.210 Nicotine dependence, cigarettes, uncomplicated; Z88.1 Allergy status to other antibiotic agents
CPT/HCPCS: 99283

== ENCOUNTER → 2023-08-28 | Emergency (ER) | payer SELFPAY ==
[~2023-08-28] MED LIST: CEFTRIAXONE 1000 MG/VIAL ONE; CEPHALEXIN 250 MG CAP ONE; D5 0.45 NS 1,000 ML IV ONE; LORazepam 2 MG/ML VIAL ONE; NA CHLORIDE 0.9% 1,000 ML ONE; NA CHLORIDE 0.9% 50 ML ONE
[2023-08-28 01:29] LABS: Absolute Basophils 0.1 K/uL (0-0.5); Absolute Eosinophils 0.3 K/uL (0-0.5); Absolute Lymphocytes (CBC) 2.2 K/uL (0.7-4.9); Basophils % 0.7 % (0-1.3); Eosinophils % 2.7 % (0-4.4); Hematocrit 30.4 % (36.0-45.0); MCV 74.1 fL (80-100); MPV 7.1 fL (7.6-11.3); Platelets 363 thou/uL (152-406); RBC Red Blood Cell Count 4.11 M/uL (3.86-4.86)
[2023-08-28 01:42] LABS: Protime INR 1.34
[2023-08-28 02:13] LABS: ALT/SGPT 23 U/L (13-56); AST/SGOT 17 U/L (15-37); Albumin 3.1 g/dL (3.4-5.0); Albumin/Globulin Ratio 0.6 (1.1-1.8); Alkaline Phosphatase 65 U/L (45-117); Anion Gap 9.5 mEq/L (5.0-15.0); BUN Blood Urea Nitrogen 9 mg/dL (7-18); Bicarbonate 25 mEq/L (21-32); Bilirubin Direct 0.3 mg/dL (0-0.2); Bilirubin Indirect, Calculated 0.7 mg/dL (0.2-0.8); Glomerular Filtration Rate 108 ml/min (=/>90); Glucose Level 76 mg/dL (74-106); Potassium 3.5 mEq/L (3.5-5.1); Protein, Total 8.1 g/dL (6.4-8.2); Sodium Level 137 mEq/L (136-145)
[2023-08-28 02:39] LABS: Specific Gravity 1.025 (1.005-1.030); Urine Bacteria >50 /HPF (<20); Urine Bilirubin NEGATIVE (Negative); Urine Blood Trace (Negative); Urine Clarity Extremely Turbid (Clear); Urine Color Yellow (Yellow); Urine Glucose NEGATIVE (Negative); Urine Mucus 4+ /HPF (None Seen); Urine Protein TRACE (Negative); Urine Urobilinogen Normal (Normal)
[2023-08-28 02:41] LABS: Barbiturates NEGATIVE (NEGATIVE); Benzodiazepines POSITIVE (NEGATIVE); Cocaine NEGATIVE (NEGATIVE); METHAMPHETAM POSITIVE (NEGATIVE); Methadone NEGATIVE (NEGATIVE); Opiates NEGATIVE (NEGATIVE); Phencyclidine NEGATIVE (NEGATIVE); THC Cannibis NEGATIVE (NEGATIVE)
[2023-08-28 05:12] LABS: SARS-CoV-2 Antigen Rapid Res Negative (Negative)
--- NOTE | 2023-08-28 05:56 | ER ---
Nurse's Notes [facility] Name: Patrizia Young Age: 32 yrs Sex: Female : 1990 Arrival Date: 08/28/2023 Time: 00:30 Bed 17 Private MD: Diagnosis: Suicide attempt, methamphetamine overdose, exacerbation of chronic depression;UTI/ Urinary tract infection, site not specified Presentation: 08/27 00:30 Chief complaint: Patient states: self injected 50 units of Meth via insulin syringe in lg3 SI attempt. PT states "this is not my fist time and it will not be my last. i have tried to kill myself multiple times by hanging, beating my face and head in the wall and overdosing." WHITNEY on file. Coronavirus screen: Client denies travel out of the [place] in the last 14 days. At this time, the client does not indicate any symptoms associated with coronavirus-19. Ebola Screen: No symptoms or risks identified at this time. Initial Sepsis Screen: Does the patient meet any 2 criteria? No. Patient's initial sepsis screen is negative. Does the patient have a suspected source of infection? No. Patient's initial sepsis screen is negative. Risk Assessment: Do you want to hurt yourself or someone else? Patient reports desire/thoughts of hurting themselves or someone else. Provider notified. Onset of symptoms was August 27, 2023 at 23:30. 00:30 Method Of Arrival: EMS: [facility] lg3 00:30 Acuity: GLADYS 2 lg3 Triage Assessment: 00:30 General: Appears in no apparent distress. Behavior is cooperative, anxious, crying. lg3 Pain: Denies pain. EENT: No deficits noted. No signs and/or symptoms were reported regarding the EENT system. Neuro: Cruz Agitation-Sedation Scale (RASS): +1 Restless Level of Consciousness is awake, alert, obeys commands, Oriented to person, place, time, situation. Cardiovascular: No deficits noted. Capillary refill < 3 seconds Clubbing of nail beds is absent JVD is absent Patient's skin is warm and dry. Respiratory: No deficits noted. Airway is patent Respiratory effort is even, unlabored, Respiratory pattern is regular, symmetrical. GI: No deficits noted. No signs and/or symptoms were reported involving the gastrointestinal system. Abdomen is round non-distended, obese. : No deficits noted. No signs and/or symptoms were reported regarding the genitourinary system. Derm: No deficits noted. No signs and/or symptoms reported regarding the dermatologic system. Skin is intact, is healthy with good turgor, Skin is dry, Skin is normal, Skin temperature is warm. Musculoskeletal: No deficits noted. No signs and/or symptoms reported regarding the musculoskeletal system. Circulation, motion, and sensation intact. Range of motion: intact in all extremities. 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 Flu vaccine is not up to date. - Social history:: Smoking status: Patient reports the use of cigarette tobacco products, smokes one pack cigarettes per day. Patient uses alcohol, on a daily basis. street drugs, Methamphetamine (Meth). - Family history:: not pertinent. Screenin:30 [facility] ED Fall Risk Assessment (Adult) History of falling in the last 3 months, lg3 including since admission No falls in past 3 months (0 pts). Abuse screen: Denies threats or abuse. Denies injuries from another. Nutritional screening: No deficits noted. Tuberculosis screening: No symptoms or risk factors identified. Assessment: 00:30 General: Appears distressed, Behavior is cooperative, crying. Pain: Denies pain. Neuro: tm6 Level of Consciousness is awake, alert, obeys commands, Oriented to person, place, time, situation. Cardiovascular: Capillary refill < 3 seconds Patient's skin is warm and dry. Respiratory: Airway is patent Respiratory effort is even, unlabored, Respiratory pattern is regular, symmetrical. GI: No signs and/or symptoms were reported involving the gastrointestinal system. : No signs and/or symptoms were reported regarding the genitourinary system. EENT: No signs and/or symptoms were reported regarding the EENT system. Derm: No signs and/or symptoms reported regarding the dermatologic system. Musculoskeletal: No signs and/or symptoms reported regarding the musculoskeletal system. 02:27 Reassessment: patient states she is worried about her grandpa, as he has dementia and tm6 lives alone. General: Appears in no apparent distress. Behavior is cooperative, anxious. 03:04 Reassessment: patient has eyes closed. tm6 03:30 Reassessment: patient refused antibiotic for UTI at this time. Will try to give again tm6 after patient has rested. 03:39 Reassessment: patient has eyes closed. tm6 04:17 Reassessment: Ede Soto (grandfather) [phone]. tm6 04:17 Reassessment: Patient is alert, oriented x 3, equal unlabored respirations, skin tm6 warm/dry/pink. 05:23 Reassessment: patient has eyes closed. tm6 07:00 Reassessment: Patient appears in no apparent distress at this time. Patient and/or db family updated on plan of care and expected duration. Pain level reassessed. Patient is alert, oriented x 3, equal unlabored respirations, skin warm/dry/pink. Neuro: Level of Consciousness is awake, alert, obeys commands, Oriented to person, place, time, situation, Speech is normal. Respiratory: Airway is patent Respiratory effort is even, unlabored, Respiratory pattern is regular, symmetrical. 07:07 Reassessment: [facility] AT PATIENT BEDSIDE. db 07:45 Reassessment: PATIENT PROVIDED BREAKFAST TRAY. db 08:00 Reassessment: Patient appears in no apparent distress at this time. Patient and/or db family updated on plan of care and expected duration. Pain level reassessed. Patient is alert, oriented x 3, equal unlabored respirations, skin warm/dry/pink. 09:00 Reassessment: Patient appears in no apparent distress at this time. Patient and/or db family updated on plan of care and expected duration. Pain level reassessed. Patient is alert, oriented x 3, equal unlabored respirations, skin warm/dry/pink. 09:53 Reassessment: REPORT GIVEN TO JESSICA FROM [facility]. db 10:00 Reassessment: Patient appears in no apparent distress at this time. Patient and/or db family updated on plan of care and expected duration. Pain level reassessed. Patient is alert, oriented x 3, equal unlabored respirations, skin warm/dry/pink. 10:12 Reassessment: PATIENT SIGNED TRANSFER FORM MOT. db 10:55 Reassessment: TRANSPORT OFFICER HERE FOR PATIENT. db 10:55 Reassessment: Patient appears in no apparent distress at this time. Patient and/or db family updated on plan of care and expected duration. Pain level reassessed. Patient is alert, oriented x 3, equal unlabored respirations, skin warm/dry/pink. Psych: 00:30 [place] Suicide Severity Screening: In the past month, have you wished you were tm6 or wished you could go to sleep and not wake up? Patient responds "yes." Based off the client's responses additional C-SSRS screening is required. "In the past month, have you actually had any thoughts of killing yourself?" Patient responds "yes." Based off the client's response additional [place] suicide severity screening questions to be further documented on paper forms. "In your lifetime, have you ever done anything, started to do anything, or prepared to do anything to end your life?" Patient responds "yes." Patient reports suicidal intent within 3 past months. Subjective: Patient's mood is sad, Delusions are denied, Hallucinations are denied Having thoughts of suicide. Plan for suicide is overdose on meth. Objective: Patient is cooperative, Speech is loud, rambling, Affect is appropriate. Interventions: Removed personal items and placed in bag. Patient placed in hospital gown. Searched person for dangerous items. Belonging list filled out. Safety Checks: Personal items have been removed. Door is open. No visitors are present at this time. Patient uses methamphetamines used insulin syringe to inject 50 units into right wrist. Commitment: Patient will be an involuntary commitment. 07:00 [place] Suicide Severity Screening: In the past month, have you wished you were db or wished you could go to sleep and not wake up? Patient responds "yes." Based off the client's responses additional C-SSRS screening is required. "In the past month, have you actually had any thoughts of killing yourself?" Patient responds "yes." Based off the client's response additional [place] suicide severity screening questions to be further documented on paper forms. "In your lifetime, have you ever done anything, started to do anything, or prepared to do anything to end your life?" Patient responds "yes." Patient reports suicidal intent within 3 past months. Subjective: Patient's mood is sad, Delusions are denied, Hallucinations are denied Having thoughts of suicide. Objective: Patient is cooperative, Speech is normal, Affect is appropriate. Interventions: Removed personal items and placed in bag. Patient placed in hospital gown. Patient reassessed during use of restraints. Patient is physically safe. Patient's cardiac status is stable. Patient's respirations are even and unlabored. Patient has good circulation in all extremities as indicated by capillary refill < 3 seconds. Patient's ROM assessed and is intact. Patient nutrition and hydration needs will continue to be monitored and addressed. Patient hygiene and elimination needs met. Patient assessed for signs of distress. Patient remains reasonably comfortable at this time. Safety Checks: Personal items have been removed. Door is open. No visitors are present at this time. Patient uses methamphetamines 50 UNITS. Commitment: Patient will be an involuntary commitment. Vital Signs: 00:30 BP 160 / 97; Pulse 123; Resp 19 S; Temp 98.2(TE); Pulse Ox 100% on R/A; Weight 63.5 kg lg3 (R); Height 5 ft. 4 in. (R); 02:27 BP 119 / 78; Pulse 92; Resp 17; Pulse Ox 100% on R/A; Pain 0/10; tm6 03:03 BP 119 / 80; Pulse 98; Resp 14; Pulse Ox 100% on R/A; Pain 0/10; tm6 03:38 BP 128 / 82; Pulse 97; Resp 20; Pulse Ox 100% on R/A; Pain 0/10; tm6 04:18 BP 114 / 69; Pulse 103; Resp 14; Pulse Ox 97% on R/A; Pain 0/10; tm6 05:22 Pulse 92; Resp 16; Pulse Ox 97% on R/A; tm6 07:09 BP 109 / 68; Pulse 109; Resp 20; Pulse Ox 98% on R/A; mc5 08:00 BP 111 / 61; Pulse 98; Resp 18; Temp 98.2(O); Pulse Ox 97% ; db 09:00 BP 100 / 52; Pulse 111; Resp 18; Pulse Ox 97% on R/A; db 10:00 BP 99 / 60; Pulse 103; Resp 18; Pulse Ox 98% on R/A; db 10:55 Temp 98; db 00:30 Body Mass Index 24.03 (63.50 kg, 162.56 cm) lg3 02:27 Pain Scale: Adult tm6 03:03 Pain Scale: Adult tm6 03:38 Pain Scale: Adult tm6 04:18 Pain Scale: Adult tm6 ED Course: 00:30 Safety Checks: Personal items have been removed. The door is open or patient has been lg3 placed in a hallway bed/chair. There are no family/friend visitors at this time Sitter present at this time. 00:30 Arm band placed on right wrist. lg3 00:30 Patient has correct armband on for positive identification. Bed in low position. Side lg3 rails up X 1. Valuables inventory done. See valuables checklist. Client placed on continuous cardiac and pulse oximetry monitoring. NIBP monitoring applied. cardiac monitor on. Warm blanket given. Patient is placed in psych hold. 00:30 placed in paper scrubs. Provided Education on: plan of care. tm6 00:30 Patient maintains SpO2 saturation greater than 95% on room air. lg3 00:40 Patient arrived in ED. lg3 00:43 Triage completed. lg3 00:43 Nicholas Goodman MD is Attending Physician. sp4 01:21 Inserted saline lock: 22 gauge in right hand, using aseptic technique. Blood collected. lg3 01:22 Initial lab(s) drawn, by vt, sent to lab. EKG done, by ED staff, reviewed by Nicholas Goodman MD. 01:29 Marcelle Bettencourt, RN is Primary Nurse. tm6 02:25 Urine Drug Screen Sent. tm6 02:25 Urinalysis w/ reflexes Sent. tm6 02:25 Test, Urine Sent. tm6 02:28 Warm blanket given. tm6 02:46 Urine Culture Sent. tm6 04:18 SARS RAPID Sent. tm6 06:58 Report given to Valeria TINOCO. tm6 07:00 Took report from [employer] [facility] and started new sitter packet. mc5 07:00 Patient is placed in psych hold. db 07:15 [facility] at bedside for evaluation. mc5 07:31 faxed patient clinical's to [facility] in attempt to find placement. eb 08:28 faxed patient clinical's to [facility] and [facility] in the attempt to find placement. 09:00 No apparent distress. Resting quietly. Appears to be sleeping. db 09:52 connected Jessica Rn from [facility] with Valeria Tinoco for nurse to nurse report. eb 09:55 administrative approval given by Louann Knowles/ patient has been accepted to [facility]. 10:03 Police [facility]'s Department called/ Dispatch Calli will page the eb lehr attendant search engine optimization consultant. 10:15 Pain Coordinator Rape returned page/ He is currently out of pocket; he will be here as soon as he eb can to sign transfer warrant. 10:28 Pain Coordinator Rape here to sign transfer warrant. eb 10:48 [facility] here for transport. eb 10:55 No provider procedures requiring assistance completed. IV discontinued, intact, db bleeding controlled, No redness/swelling at site. Administered Medications: 02:25 Drug: NS 0.9% IV 1000 ml IV at 1 bolus Per protocol; 1000 mL bolus Route: IV; Rate: 1 tm6 bolus; Site: right hand; 04:26 Follow up: Response: No adverse reaction; IV Status: Completed infusion; IV Intake: tm6 1000ml 02:26 Not Given (Physician Discretion): ativan4 mg IVP once tm6 02:26 Drug: D5-1/2 NS IV 1000 ml IV at 125 ml/hr continuous Route: IV; Rate: 125 ml/hr; Site: tm6 right hand; 02:26 Drug: Ativan IVP 2 mg IVP once Route: IVP; Site: right hand; tm6 07:31 Follow up: Response: No adverse reaction db 07:31 Drug: Cephalexin PO 500 mg PO once Route: PO; db 10:18 Follow up: Response: No adverse reaction db 08:25 Drug: Rocephin IV 1 grams IV at per protocol once; Given slow IV push per pharmacy db instructions Route: IV; Rate: per protocol; Site: left antecubital; 08:50 Follow up: Response: No adverse reaction; IV Status: Completed infusion; IV Intake: 50mldb Medication: 00:30 VIS not applicable for this client. tm6 Intake: 04:26 IV: 1000ml; Total: 1000ml. tm6 08:50 IV: 50ml; Total: 1050ml. db Outcome: 05:56 ER care complete, transfer ordered by sp4 08:00 Patient is placed in psych hold db 10:55 Transferred BEHAVIORAL OFFICER. Note: [facility] db 10:55 Condition: stable 10:55 Instructed on the need for transfer, 10:57 Patient left the ED. db Signatures: Vicky Dumont Lacie, RN RN lg3 Valeria Osborn RN RN db Nicholas Goodman MD MD sp4 Kaylee Cox 5 Marcelle Bettencourt RN RN tm6 Corrections: (The following items were deleted from the chart) 00:49 00:30 Chief complaint: Patient states: self injected 50 units of Meth via insulin lg3 syringe in SI attempt. PT states "this is not my fist time and it will not be my last. i have tried to kill myself multiple times by hanging, beating my face and head in the wall and overdosing." lg3 07:21 07:09 Pulse 109bpm; Resp 20bpm; Pulse Ox 98% RA; db mc5
--- NOTE | 2023-08-28 05:56 | EDPHYS ---
Physician Documentation [facility] Name: Patrizia Young Age: 32 yrs Sex: Female : 1990 Arrival Date: 08/28/2023 Time: 00:30 Bed 17 Private MD: ED Physician Nicholas Goodman HPI: 08/27 00:44 This 32 yrs old Female presents to ER via EMS with complaints of overdose sp4 Methamphetamine. 03:30 32-year-old female brought in by EMS presents with emotional upset and overdose on sp4 methamphetamines.. Patient has injected a syringe full of methamphetamines at home just prior to arrival. Patient reports active suicidal ideation and plan to overdose. Patient is under WHITNEY. CRIB ATTENDANT: 00:30 unknown, PT unaware of LMP lg3 Historical: - Allergies: 00:43 Amoxicillin; lg3 - Home Meds: 00:43 Xanax Oral [Active]; lg3 - PMHx: 00:43 AGORAPHOBIA; Anxiety; Bipolar disorder; Depression; drug abuse; Panic Attacks; lg3 - PSHx: 00:43 cosmetic facial (Panic Attacks); lg3 - Immunization history:: Adult Immunizations up to date, Client reports having NOT received the Covid vaccine. Flu vaccine is not up to date. - Social history:: Smoking status: Patient reports the use of cigarette tobacco products, smokes one pack cigarettes per day. Patient uses alcohol, on a daily basis. street drugs, Methamphetamine (Meth). - Family history:: not pertinent. ROS: 03:30 Constitutional: Negative for fever, chills, and weight loss, positive suicidal sp4 ideation, positive suicide plan, positive methamphetamine overdose 03:30 All other systems are negative, Exam: 01:25 ECG was reviewed by the Attending Physician. EKG at 0048 sinus tachycardia at the sp4 rate of 101, otherwise normal 03:30 Constitutional: This is a well developed, well nourished patient who is awake, alert, sp4 ill-appearing female in emotional upset, multiple tattoos, tachycardic and hypertensive Head/Face: Normocephalic, atraumatic. Eyes: Pupils equal round and reactive to light, extra-ocular motions intact. Lids and lashes normal. Conjunctiva and sclera are not injected. Cornea within normal limits. Periorbital areas with no swelling, redness, or edema. ENT: Nares patent. No nasal discharge, no septal abnormalities noted. Tympanic membranes are normal and external auditory canals are clear. Oropharynx with no redness, swelling, or masses, exudates, or evidence of obstruction, uvula midline. Mucous membranes moist. Neck: Trachea midline, no thyromegaly or masses palpated, and no cervical lymphadenopathy. Supple, full range of motion without nuchal rigidity, or vertebral point tenderness. Chest/axilla: Normal chest wall appearance and motion. Nontender with no deformity. No lesions are appreciated. Cardiovascular: Regular rate and rhythm with a normal S1 and S2. No gallops, murmurs, or rubs. Normal PMI, no JVD. No pulse deficits. Respiratory: Lungs have equal breath sounds bilaterally, clear to auscultation and percussion. No rales, rhonchi or wheezes noted. No increased work of breathing, no retractions or nasal flaring. Abdomen/GI: Soft, with normal bowel sounds. No distension or tympany. No guarding or rebound. No evidence of tenderness throughout. Back: No spinal tenderness. No costovertebral tenderness. Skin: Warm, dry with normal turgor. Normal color with no rashes, no lesions, and no evidence of cellulitis. MS/ Extremity: Pulses equal, no cyanosis. Neurovascular intact. Full, normal range of motion. Neuro: Awake and alert, GCS 15, oriented to person, place, time, and situation. Cranial nerves II-XII grossly intact. Motor strength 5/5 in all extremities. Sensory grossly intact. Psych: Awake, alert, with orientation to person, place and time. Behavior, mood, and affect are within normal limits Vital Signs: 00:30 BP 160 / 97; Pulse 123; Resp 19 S; Temp 98.2(TE); Pulse Ox 100% on R/A; Weight 63.5 kg lg3 (R); Height 5 ft. 4 in. (R); 02:27 BP 119 / 78; Pulse 92; Resp 17; Pulse Ox 100% on R/A; Pain 0/10; tm6 03:03 BP 119 / 80; Pulse 98; Resp 14; Pulse Ox 100% on R/A; Pain 0/10; tm6 03:38 BP 128 / 82; Pulse 97; Resp 20; Pulse Ox 100% on R/A; Pain 0/10; tm6 04:18 BP 114 / 69; Pulse 103; Resp 14; Pulse Ox 97% on R/A; Pain 0/10; tm6 05:22 Pulse 92; Resp 16; Pulse Ox 97% on R/A; tm6 07:09 BP 109 / 68; Pulse 109; Resp 20; Pulse Ox 98% on R/A; mc5 08:00 BP 111 / 61; Pulse 98; Resp 18; Temp 98.2(O); Pulse Ox 97% ; db 09:00 BP 100 / 52; Pulse 111; Resp 18; Pulse Ox 97% on R/A; db 10:00 BP 99 / 60; Pulse 103; Resp 18; Pulse Ox 98% on R/A; db 10:55 Temp 98; db 00:30 Body Mass Index 24.03 (63.50 kg, 162.56 cm) lg3 02:27 Pain Scale: Adult tm6 03:03 Pain Scale: Adult tm6 03:38 Pain Scale: Adult tm6 04:18 Pain Scale: Adult tm6 MDM: 00:45 Patient medically screened. sp4 05:52 Differential Diagnosis altered mental status, sepsis, flu, Overdose . Data reviewed: sp4 vital signs, nurses notes, EMS record. Consideration of Admission/Observation Escalation of care including admission/observation considered. ED course: Tye bhardwaj counselor is coming to assess the patient. 07:05 Transition of care: After a detail discussion of the patient's case, care is sp4 transferred to Rajendra Stack MD. 03 00:44 Order name: Acetaminophen; Complete Time: 02:56 sp4 08/27 00:44 Order name: Basic Metabolic Panel; Complete Time: 02:56 sp4 08/27 00:44 Order name: CBC with Diff; Complete Time: 02:56 4 08/27 00:44 Order name: ETOH Level; Complete Time: 02:56 sp4 08/27 00:44 Order name: Hepatic Function; Complete Time: 02:56 sp4 08/27 00:44 Order name: PT-INR; Complete Time: 02:56 sp4 08/27 00:44 Order name: Test, Urine; Complete Time: 06:59 sp4 08/27 00:44 Order name: Ptt, Activated; Complete Time: 02:56 sp4 08/27 00:44 Order name: Salicylate; Complete Time: 02:56 sp4 08/27 00:44 Order name: Urinalysis w/ reflexes; Complete Time: 02:56 sp4 08/27 00:44 Order name: Urine Drug Screen; Complete Time: 02:56 sp4 08/27 02:44 Order name: Urine Culture EDMS 08/27 04:08 Order name: SARS RAPID; Complete Time: 06:40 sp4 08/27 00:44 Order name: EKG; Complete Time: 00:45 4 08/27 00:44 Order name: EKG - Nurse/Tech; Complete Time: 01:30 sp4 08/27 00:44 Order name: IV Saline Lock; Complete Time: :30 4 08/27 00:44 Order name: Labs collected and sent; Complete Time: :30 4 08/27 00:44 Order name: Suicide Precautions; Complete Time: :30 sp4 08/27 00:44 Order name: Suicide Screening ([place]); Complete Time: 4 EC:25 Rate is 101 beats/min. Rhythm is regular, Sinus tachycardia. QRS Goehner is Normal. [place] sp4 interval is normal. QRS interval is normal. QT interval is normal. No Q waves. T waves are Normal. No ST changes noted. Clinical impression: No evidence of ischemia. Interpreted by me. Reviewed by me. Administered Medications: 02:25 Drug: NS 0.9% IV 1000 ml IV at 1 bolus Per protocol; 1000 mL bolus Route: IV; Rate: 1 tm6 bolus; Site: right hand; 04:26 Follow up: Response: No adverse reaction; IV Status: Completed infusion; IV Intake: tm6 1000ml 02:26 Not Given (Physician Discretion): ativan4 mg IVP once tm6 02:26 Drug: D5-1/2 NS IV 1000 ml IV at 125 ml/hr continuous Route: IV; Rate: 125 ml/hr; Site: tm6 right hand; 02:26 Drug: Ativan IVP 2 mg IVP once Route: IVP; Site: right hand; tm6 07:31 Follow up: Response: No adverse reaction db 07:31 Drug: Cephalexin PO 500 mg PO once Route: PO; db 10:18 Follow up: Response: No adverse reaction db 08:25 Drug: Rocephin IV 1 grams IV at per protocol once; Given slow IV push per pharmacy db instructions Route: IV; Rate: per protocol; Site: left antecubital; 08:50 Follow up: Response: No adverse reaction; IV Status: Completed infusion; IV Intake: 50mldb Disposition Summary: 08/28/23 05:56 Transfer Ordered Notes: Transfer Location: [facility] sp4 Reason: Higher level of care sp4 Condition: Stable sp4 Problem: new sp4 Symptoms: have improved sp4 Accepting Physician: Accepting psychiatrist(08/28/23 10:57) db Diagnosis - Suicide attempt, methamphetamine overdose, exacerbation of chronic depression sp4 - UTI/ Urinary tract infection, site not specified alicia Forms: - Medication Reconciliation Form sp4 - SBAR form sp4 Signatures: Dispatcher [employer] EDMS Rajendra Stack MD MD cha Able, Lacie RN RN lg3 Valeria Osborn RN RN Nicholas Stauffer MD MD sp4 Marcelle Bettencourt RN RN tm6 Corrections: (The following items were deleted from the chart) 07:43 05:56 Accepting psychiatrist [address] 10:57 07:43 Accepting psychiatrist alicia db
[2023-08-28 06:50] LABS: Specific Gravity 1.025 (1.005-1.030)
[2023-08-28 11:13] VITALS: O2SAT 98
[2023-08-28 11:38] VITALS: BP 99/60; TEMP 98
== END ==
LOC: ER 00:30
DX: T43.622A Poisoning by amphetamines, intentional self-harm, initial encounter (principal); F32.A Depression, unspecified; N39.0 Urinary tract infection, site not specified; Z11.52 Encounter for screening for COVID-19
CPT/HCPCS: 36415; 80048; 80076; 80143; 80179; 80307; 81001; 81025; 82077; 85025; 85610; 85730; 87077; 87086; 87088; 87186; 87811; 96361; 96365; 96375; 99285; J0696; J7030; J7799

== ENCOUNTER 2025-04-07 05:27 | Emergency (ER) | payer OTHER ==
[2025-04-07 05:59] LABS: Absolute Lymphocytes (CBC) 4.2 K/uL (0.7-4.9); Hematocrit 35.3 % (36.0-45.0); Hemoglobin 11.0 g/dL (12.0-15.0); MCH 23.0 pg (27.0-35.0); MCHC 31.1 g/dL (32.0-36.0); MCV 73.7 fL (80-100); MPV 7.6 fL (7.6-11.3); Nucleated RBC Absolute Count 0.0 (0-0); Nucleated Red Blood Cells % 0.0 % (0-0); RBC Red Blood Cell Count 4.79 M/uL (3.86-4.86); White Blood Count 13.50 thou/uL (4.3-10.9)
[2025-04-07 06:20] LABS: PT Prothrombin Time 12.7 SECONDS (10-13.0); PTT, Activated Partial Thromb 34.1 SECONDS (27.2-37.4); Protime INR 1.13
[2025-04-07 06:31] LABS: ALT/SGPT 23 U/L (13-56); AST/SGOT 19 U/L (15-37); Albumin 3.2 g/dL (3.4-5.0); Albumin/Globulin Ratio 0.6 (1.1-1.8); Alkaline Phosphatase 63 U/L (45-117); Anion Gap 14.4 mEq/L (5.0-15.0); BUN Blood Urea Nitrogen 9 mg/dL (7-18); Globulin 5.3 g/dL (2.3-3.5); Glucose Level 95 mg/dL (74-106); Potassium 3.4 mEq/L (3.5-5.1)
[2025-04-07 06:32] LABS: Bilirubin Indirect, Calculated 0.1 mg/dL (0.2-0.8)
[2025-04-07 06:44] LABS: METHAMPHETAM POSITIVE (NEGATIVE); THC Cannibis NEGATIVE (NEGATIVE)
[2025-04-07] MEDS ORDERED: NA CHLORIDE 0.9% 1,000 ML ONE (07:09)
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
--- NOTE | 2025-04-07 07:14 | EDPHYS ---
Physician Documentation [facility] Name: Patrizia Young Age: 34 yrs Sex: Female : 1990 Arrival Date: 04/07/2025 Time: 05:27 Bed 16 Private MD: ROBERT Physician Rajendra Stack HPI: 04/07 05:41 This 34 yrs old Female presents to ER via EMS with complaints of suicide tt7 attempt. 05:41 Patient reports that [place] to tt7 kill herself. She states she has been very depressed lately due to her grandfather being ill. She states that she wants to get help and does not feel right mentally. Admits to consuming a large quantity of alcohol this evening. Past medical history includes agoraphobia, depression, bipolar disorder, polysubstance abuse. She denies homicidal ideation. She denies auditory or visual hallucinations. Historical: - Allergies: 05:36 Amoxicillin; kt5 - Home Meds: 05:36 Xanax Oral [Active]; kt5 - PMHx: 05:36 AGORAPHOBIA; Anxiety; Depression; Bipolar disorder; drug abuse; Panic Attacks; kt5 - PSHx: 05:36 cosmetic facial; kt5 - Immunization history:: Adult Immunizations up to date, Client reports having NOT received the Covid vaccine. Last tetanus immunization: unknown. - Infectious Disease History:: Denies. - Social history:: Smoking status: Patient reports the use of cigarette tobacco products, Patient/guardian denies using alcohol. ROS: 05:30 Constitutional: negative for fever. Cardiovascular: negative for chest pain. tt7 Respiratory: negative for shortness of breath. Abdomen/GI: negative for abdominal pain, nausea, vomiting, diarrhea. MS/Extremity: negative for injury and deformity. Skin: negative for rash. Neuro: negative for focal weakness. Exam: 05:30 Constitutional: Constitutional: vital signs reviewed, well appearing Head: tt7 normocephalic Eyes: no conjunctival injection, anicteric sclerae ENMT: mucus membranes moist Neck: trachea midline, no JVD Respiratory: normal respiratory effort, no accessory muscle use, no audible wheezing Cardiovascular: Regular rate and rhythm, no lower extremity edema Abdomen: nondistended MSK: normal ROM of extremities, no gross deformities Skin: warm, dry, intact Neuro: alert and oriented with appropriate mental status, normal speech, follows commands, no focal neurologic deficits 05:30 Psych: Behavior/mood is depressed, Vital Signs: 05:42 BP 140 / 93; Pulse 123; Resp 22; Temp 98.5; Pulse Ox 100% ; Weight 63.5 kg; Height 5 kt5 ft. 4 in. ; Pain 0/10; 09:21 BP 107 / 60; Pulse 103; Resp 14; Temp 98.7; Pulse Ox 100% on R/A; em1 05:42 Body Mass Index 24.03 (63.50 kg, 162.56 cm) kt5 05:42 Pain Scale: Adult kt5 MDM: 05:28 Medical Screening Exam initiated tt7 05:30 Differential diagnosis: Depression, anxiety, suicide attempt, suicidal ideation, tt7 alcohol intoxication, drug abuse with intoxication, salicylate toxicity, acetaminophen toxicity. Data reviewed: vital signs, nurses notes, old medical records, lab test result(s), EKG. ED course: Standard toxicology/psych workup ordered, vital signs are stable, physical exam reassuring, patient clinically intoxicated, patient very high risk so will medically assessed the patient and plan for inpatient psychiatric care, will administer IV droperidol for anxiolysis. 06:09 ED course: I independently interpreted the patient's EKG performed on 04/07/2025 at tt7 0542. On my interpretation, EKG demonstrates sinus tachycardia, ventricular rate 124 bpm, normal axis, normal QRS interval, normal ST segments, no STEMI. 07:14 ED course: Laboratory studies reassuring, ethanol elevated consistent with alcohol tt7 intoxication, will give IV fluids, let patient metabolize ethanol, and transfer for inpatient psychiatric care, patient care signed out to Dr. Stack at shift change at 0700 pending psychiatric placement. 04/07 05:29 Order name: Acetaminophen; Complete Time: 06:42 tt7 04/07 05:29 Order name: Basic Metabolic Panel; Complete Time: 06:42 tt7 04/07 05:29 Order name: CBC with Diff; Complete Time: 06:27 tt7 04/07 05:29 Order name: ETOH Level; Complete Time: 06:49 tt7 04/07 05:29 Order name: Hepatic Function; Complete Time: 06:42 tt7 04/07 05:29 Order name: PT-INR; Complete Time: 06:27 tt7 04/07 05:29 Order name: Ptt, Activated; Complete Time: 06:27 tt7 04/07 05:29 Order name: Salicylate; Complete Time: 07:12 tt7 04/07 05:29 Order name: Urine Drug Screen; Complete Time: 06:49 7 04/07 05:29 Order name: Test, Serum; Complete Time: 06:27 tt7 04/07 05:29 Order name: EKG - Nurse/Tech; Complete Time: 06:02 tt7 04/07 05:29 Order name: IV Saline Lock; Complete Time: 06:02 tt7 04/07 05:29 Order name: Labs collected and sent; Complete Time: 05:39 tt7 04/07 05:29 Order name: Suicide Precautions; Complete Time: 05:39 tt7 04/07 05:29 Order name: Suicide Screening ([place]); Complete Time: 05:39 tt7 Administered Medications: 06:03 Drug: Droperidol IVP 2.5 mg IVP once Route: IVP; Site: left antecubital; kt5 06:24 Follow up: Response: No adverse reaction; Anxiety decreased kt5 07:14 Drug: NS 0.9% IV 1000 ml IV at 1000 ml once; to be given as a bolus over 60 minutes jb4 Route: IV; Rate: 1000 ml; Site: left antecubital; Disposition: 07:15 Co-signature as Attending Physician, Blue Almanza DO. tt7 Disposition Summary: 04/07/25 07:13 Transfer Ordered Notes: Transfer Location: Psych Facility tt7 Reason: Specialty tt7 Condition: Stable tt7 Problem: an acute exacerbation tt7 Symptoms: have worsened tt7 Accepting Physician: Psych(04/07/25 10:14) jb4 Diagnosis - Suicidal ideations tt7 - Alcohol abuse with intoxication tt7 Forms: - Medication Reconciliation Form tt7 - SBAR form tt7 Signatures: Dispatcher [employer] Trevor Long RN RN jb4 Cherelle Spears RN RN kt5 Blue Almanza DO DO tt7 Corrections: (The following items were deleted from the chart) 05:29 05:29 ACETAMINOPHEN+C.LAB.BRZ ordered. EDMS EDMS 05:29 05:29 BASIC METABOLIC PANEL+C.LAB.BRZ ordered. EDMS EDMS 05:29 05:29 CBC+H.LAB.BRZ ordered. EDMS EDMS 05:29 05:29 ETHANOL+C.LAB.BRZ ordered. EDMS EDMS 05:29 05:29 HEPATIC FUNCTION+C.LAB.BRZ ordered. EDMS EDMS 05:29 05:29 PROTIME (+INR)+COAG.LAB.BRZ ordered. EDMS EDMS 05:29 05:29 PTT, ACTIVATED+COAG.LAB.BRZ ordered. EDMS EDMS 05:29 05:29 SALICYLATE+C.LAB.BRZ ordered. EDMS EDMS 05:29 05:29 URINE DRUG SCREEN+UC.LAB.BRZ ordered. EDMS EDMS 05:29 05:29 TEST, SERUM+SC.LAB.BRZ ordered. EDMS EDMS 05:47 05:30 ED course: Standard toxicology/psych workup ordered, vital signs are stable, tt7 physical exam reassuring. tt7 10:14 07:13 Psych tt7 jb4
[2025-04-07 15:51] VITALS: O2SAT 100
[2025-04-07 15:52] VITALS: BP 107/60; TEMP 98.7
== END 2025-04-07 10:14 ==
LOC: ER 05:27
DX: R45.851 Suicidal ideations (principal); F10.129 Alcohol abuse with intoxication, unspecified; Z72.0 Tobacco use
CPT/HCPCS: 93005; 85025; 80048; 36415; 84703; 85610; 80076; 85730; 80307; 96374; 99285; 80143; 80179; 82077; J1790; J7030